=== PATIENT | female | born 1935 | race Hispanic/Latino ===

== ENCOUNTER 2017-12-08 21:10 | Inpatient (IN) | payer MEDICARE ==
--- NOTE | 2017-12-08 21:33 | ED PDOC ---
Arrival/HPI - General Chief Complaint: Weakness/Neurological Deficit Time Seen by Provider: 12/08/17 21:14 Historian: Patient, EMS - History of Present Illness Narrative History of Present Illness (Text): 12/08/17 21:33 Ry Liao is an 82 year old female, whose past medical history includes hypertension, atrial fibrillation, CVA, diabetes, and bilateral hip replacement , who presents to the Emergency department brought in by EMS for generalized weakness and lethargy today. Patient noted to be febrile and in rapid atrial fibrillation by EMS and given IV fluids en route. Patient denies any chest pain , shortness of breath, nausea, vomiting, back pain, neck pain, headache, or any other complaints. Symptom Onset: Gradual Symptom Course: Unchanged Activities at Onset: Light Context: Home Past Medical History - Provider Review Nursing Documentation Reviewed: Yes - Infectious Disease Hx of Infectious Diseases: None - Tetanus Immunization Tetanus Immunization: Unknown - Cardiac Hx Cardiac Disorders: Yes (Afib) Hx Hypertension: Yes - Pulmonary Hx Chronic Obstructive Pulmonary Disease (COPD): No - Neurological HX Cerebrovascular Accident: Yes (3 yrs ago) - HEENT Hx HEENT Disorder: Yes (eyeglasses) Hx Cataracts: No Hx Difficulty Chewing: No Hx Epistaxis: No Hx Glaucoma: No Hx Macular Degeneration: No - Renal Hx Renal Disorder: No Hx Dialysis: No Hx Kidney Stones: No Hx Neurogenic Bladder: No Hx Renal Cancer: No - Endocrine/Metabolic Hx Diabetes Mellitus Type 2: Yes - Hematological/Oncological Hx Blood Disorders: Yes Hx Anemia: Yes (BLOOD TRANSFUSION) Hx Cancer: No Hx Chemotherapy: No Hx Cirrhosis: No Hx Hemophilia: No Hx Sickle Cell Disease: No Hx Unexplained Bleeding: No - Integumentary Hx Dermatological Disorder: No Other/Comment: abd surgical dresing and binder with qball intact - Musculoskeletal/Rheumatological Hx Arthritis: Yes - Gastrointestinal Hx Gastrointestinal Disorders: Yes (colostomy reversal 12/22/16) - Genitourinary/Gynecological Hx Reproductive Disorders: No - Psychiatric Hx Emotional Abuse: No Hx Physical Abuse: No Hx Substance Use: No - Past Surgical History Past Surgical History: Non-Contributing - Surgical History Hx Orthopedic Surgery: Yes (b/l hip replacement) Other/Comment: gi lap colostomy closure today 12/21/16, colostomy, colecytomy - Anesthesia Hx Anesthesia Reactions: No Hx Malignant Hyperthermia: No - Suicidal Assessment Feels Threatened In Home Enviroment: No Family/Social History - Physician Review Nursing Documentation Reviewed: Yes Family/Social History: Unknown Family HX Smoking Status: Never Smoked Hx Alcohol Use: No Hx Substance Use: No Hx Substance Use Treatment: No Allergies/Home Meds Allergies/Adverse Reactions: Allergies No Known Allergies Allergy (Verified 12/25/16 12:05) Home Medications: Home Meds Medication Instructions Recorded Confirmed Atorvastatin [Lipitor] 40 mg PO QPM 08/08/16 12/30/16 Ca/D3/Mag#11/Zinc/Director General/Madi/Bor 1 tab PO BID 08/08/16 12/24/16 [Caltrate 600+D Plus Tablet] Digoxin [Digitek] 125 mcg PO QPM 08/08/16 12/24/16 Gabapentin [Neurontin] 100 mg PO HS 08/08/16 12/24/16 Glimepiride [Amaryl] 1 mg PO BID 08/08/16 12/24/16 Ranitidine HCl [Acid Director Client] 150 mg PO HS 08/08/16 12/24/16 Valsartan [Diovan] 160 mg PO QAM 08/08/16 12/24/16 Verapamil [Calan Tab] 120 mg PO QPM 08/08/16 12/30/16 l-Mefol/A-Cyst/Meb12/Algal Oil 1 tab PO DAILY 08/08/16 12/24/16 [Cerefolin Nac Caplet] Warfarin [Coumadin] 1 mg PO Q4XW 11/05/16 12/24/16 Vancomycin [Vancocin (ORAL OR 125 mg PO QID 12/30/16 12/30/16 RECTAL USE)] Review of Systems - Review of Systems Constitutional: Fatigue, Fevers Eyes: Normal ENT: Normal Respiratory: Normal. absent: SOB, Cough Cardiovascular: Normal. absent: Chest Pain Gastrointestinal: Normal. absent: Abdominal Pain, Diarrhea, Nausea, Vomiting Genitourinary Female: Normal. absent: Dysuria, Frequency, Hematuria, Urine Output Changes Musculoskeletal: Normal. absent: Back Pain, Neck Pain Skin: Normal Neurological: Other (+generalized weakness) Endocrine: Normal Hemo/Lymphatic: Normal Psychiatric: Normal Physical Exam Vital Signs Reviewed: Yes Vital Signs Temp Pulse Resp BP Pulse Ox 12/09/17 01:07 130 H 14 68/45 L 98 12/09/17 00:57 124 H 13 71/33 L 97 12/09/17 00:38 126 H 14 85/48 L 98 12/08/17 23:52 104 H 20 77/44 L 97 12/08/17 23:07 134 H 20 82/38 L 98 12/08/17 22:47 101.9 F H 152 H 19 92/49 L 99 12/08/17 22:37 125 H 23 92/49 L 98 12/08/17 22:03 154 H 18 83/46 L 94 L 12/08/17 21:28 100.4 F H 132 H 16 105/76 94 L 12/08/17 21:22 100.4 F H 162 H 20 105/76 95 Temperature: Febrile Blood Pressure: Normal Pulse: Tachycardic Respiratory Rate: Normal Appearance: Positive for: Non-Toxic Pain Distress: None Mental Status: Positive for: Lethargic - Systems Exam Head: Present: Atraumatic, Normocephalic Pupils: Present: PERRL Extroacular Muscles: Present: EOMI Conjunctiva: Present: Normal Mouth: Present: Moist Mucous Membranes Neck: Present: Normal Range of Motion Respiratory/Chest: Present: Clear to Auscultation, Good Air Exchange. No: Respiratory Distress, Accessory Muscle Use Cardiovascular: Present: Irregular Rhythm (Irregular, regular), Tachycardic. No : Murmurs Abdomen: Present: Normal Bowel Sounds. No: Tenderness, Distention, Peritoneal Signs Back: Present: Normal Inspection Upper Extremity: Present: Normal Inspection. No: Cyanosis, Edema Lower Extremity: Present: Normal Inspection. No: Edema Neurological: Present: GCS=15, CN II-XII Intact Skin: Present: Warm, Dry, Normal Color. No: Rashes Psychiatric: Present: Lethargic Medical Decision Making ED Course and Treatment: 12/08/17 21:33 Impression: 82 year old female brought in for lethargy and generalized weakness. Plan: -- EKG -- Chest X-ray -- Labs, VBG, blood cultures -- Urinalysis, urine cultures -- Lactated Ringer's -- Cardizem -- Vanco -- Azactam -- Reassess and disposition Prior Visits: Notes and results from previous visits were reviewed. On 08/08/2016, pt was seen in the Emergency department for left-sided abdominal pain, weakness, and light-headedbness. Pt was admitted to the hospital for further evaluation. Progress Notes: Reviewed EKG, a fib at 162 bpm. Rapidi ventricular response. Non-specific ST/T wave changes. 12/08/17 22:26 Labs noted, WBC: 18.8, lactate 5.3. Pt with low grade fever. Code Sepsis called. 12/08/17 22:30 Chest X-ray reviewed, shows no acute processes. 12/08/17 22:[address] Abdomen and Pelvis ordered. 12/08/17 23:[address] Centeno, hand therapist, who is aware and agrees to evaluate pt for possible ICU admission. vice president digital strategist cotton stomper notified. 12/09/17 01:[address] Nixon, who is aware and agrees with plan. Accepts pt in to his service. Pt will be admitted to ICU for septic shock. 12/09/17 03:08 CT Abdomen and Pelvis shows: - MULTIPLE STONES IN THE COMMON BILE DUCT, ASSOCIATED WITH DILATATION OF THE COMMON BILE DUCT. 5 STONES ARE SEEN, ALL OF WHICH MEASURE ABOUT 1 CM. GALLSTONES AND MILD GALLBLADDER DILATATION ALSO NOTED. - Small bowel dilatation. This could be due to either a small bowel obstruction or an ileus. Transition point is not definitely seen. Recommend clinical correlation. - Small amount fluid in the left perinephric space, with no evidence of significant obstructive uropathy. This finding is of uncertain clinical significance. Recommend correlation with urinalysis results. - See above for remaining findings - Critical Care Critical Care Minutes: 30 minutes - Lab Interpretations Microbiology Results: Microbiology Results 12/08/17 21:30 Blood Blood Culture - Final Escherichia Coli 12/08/17 21:30 Blood Gram Stain - Final 12/08/17 21:15 Blood Blood Culture - Final Escherichia Coli 12/08/17 21:15 Blood Gram Stain - Final 12/08/17 22:45 Urine,Clean Catch Urine Culture - Final No Growth (<1,000 CFU/ML) Lab Results: 12/08/17 21:30 12/08/17 21:30 Lab Results 12/09/17 00:55: pO2 97 H, VBG pH 7.44 H, VBG pCO2 40.0, VBG HCO3 27.2, VBG Total CO2 28.4 H, VBG O2 Sat (Calc) 98.6 H, VBG Base Excess 2.8 H, VBG Potassium 3.4 L, Sodium 141.0, Chloride 105.0, Glucose 164 H, Lactate 4.6 H*, FiO2 21.0, Venous Blood Potassium 3.4 L 12/09/17 00:55: Digoxin 0.8 12/09/17 00:55: Procalcitonin 44.73 H 12/08/17 22:45: Urine Color Straw, Urine Appearance Sl cloudy, Urine pH 6.0, Ur Specific [place] 1.020, Urine Protein 100 H, Urine Glucose (UA) 500 H, Urine Ketones Negative, Urine Blood Moderate H, Urine Nitrate Negative, Urine Bilirubin Moderate H, Urine Urobilinogen 1.0 H, Ur Leukocyte Esterase Trace H, Urine RBC 1 - 3, Urine WBC 1 - 3, Ur Epithelial Cells 1 - 3, Urine Bacteria Few 12/08/17 21:30: Lactate Dehydrogenase 885 H, Total Creatine Kinase 122, Troponin I 0.06 D 12/08/17 21:30: Sodium 137, Chloride 101, Potassium 2.7 L* D, Carbon Dioxide 21 , Anion Gap 17, BUN 26 H, Creatinine 1.0, Est GFR ( Amer) > 60, Est GFR ( Non-Af Amer) 53, Random Glucose 237 H, Calcium 8.5, Phosphorus 1.5 L, Magnesium 1.6 L, Total Bilirubin 4.0 H, AST 209 H, ALT 363 H, Alkaline Phosphatase 608 H, Total Protein 6.2, Albumin 3.1, Globulin 3.1, Albumin/Globulin Ratio 1.0 L 12/08/17 21:30: pO2 57 H, VBG pH 7.46 H, VBG pCO2 35.0 L, VBG HCO3 24.9, VBG Total CO2 26.0, VBG O2 Sat (Calc) 93.6 H, VBG Base Excess 1.4, VBG Potassium 3.0 L, Sodium 143.0, Chloride 105.0, Glucose 251 H, Lactate 5.3 H*, FiO2 21.0, Venous Blood Potassium 3.0 L 12/08/17 21:30: PT 40.2 H, INR 3.44 H, APTT 34.0 12/08/17 21:30: WBC 18.8 H D, RBC 4.14, Hgb 10.1 L, Hct 31.3 L, MCV 75.6 L, MCH 24.4 L, MCHC 32.3, RDW 18.6 H, Plt Count 201, MPV 10.7, Gran % 87.4 H, Lymph % ( Auto) 5.0 L, Quay % (Auto) 7.5 H, Eos % (Auto) 0.0 L, Baso % (Auto) 0.1, Gran # 16.40 H, Lymph # 0.9 L, Quay # 1.4 H, Eos # 0.0, Baso # 0.02, Neutrophils % ( Manual) 78 H, Band Neutrophils % 5 H, Lymphocytes % (Manual) 7 L, Atypical Lymphs % 2 H, Monocytes % (Manual) 8 H, Nucleated RBC % 1, Large Platelets Present, Anisocytosis (manual) Slight, Microcytosis (manual) Slight I have reviewed the lab results: Yes - RAD Interpretation Radiology Orders: 12/08/17 21:49 CHEST PORTABLE [RAD] Stat 12/08/17 22:45 ABD & PELVIS W/O PO OR IV CONT [CT] Stat Discharge Rn: ED Physician, Radiologist - EKG Interpretation Interpreted by ED Physician: Yes Type: 12 lead EKG - Medication Orders Current Medication Orders: Digoxin (Lanoxin) 0.125 mg IV 1400 [facility] Last Admin: 12/11/17 13:36 Dose: 0.125 mg eMAR Start Stop Document 12/11/17 13:36 MS (Rec: 12/11/17 13:36 MS [facility] Intravenous Solution Start Date 12/11/17 Start Time 13:36 MAR Apical Pulse Rate Document 12/11/17 13:36 MS (Rec: 12/11/17 13:36 MS [facility]) Apical Pulse Rate Apical Pulse Rate (60-90 beats/min) 73 Famotidine (Pepcid) 20 mg IVP DAILY [facility] Last Admin: 12/11/17 09:51 Dose: 20 mg IVP Administration Document 12/11/17 09:51 MS (Rec: 12/11/17 09:52 MS [id number] Charges for Administration # of IVP Administrations 1 Ceftriaxone Sodium (Rocephin 2 Gm Ivpb) 2 gm in 100 mls @ 100 mls/hr IVPB DAILY [facility] PRN Reason: Protocol Stop: 12/21/17 10:01 Metronidazole (Flagyl) 500 mg in 100 mls @ 100 mls/hr IVPB Q8 COLIN PRN Reason: Protocol Stop: 12/20/17 22:01 Insulin Human Regular (Humulin R Low) 0 units SC ACHS COLIN PRN Reason: Protocol Last Admin: 12/11/17 17:06 Dose: 3 units Subcutaneous Administrations Document 12/11/17 17:06 MS (Rec: 12/11/17 17:06 MS [id number] Charges for Administration # of Subcutaneous Administrations 1 Verapamil HCl (Calan Sr Tab) 120 mg PO DAILY [facility] Last Admin: 12/11/17 09:51 Dose: 120 mg MAR Pulse and Blood Pressure Document 12/11/17 09:51 MS (Rec: 12/11/17 09:51 MS [facility] [id number] Pulse Pulse Rate (60-90) 116 Discontinued Medications Digoxin (Lanoxin) 0.25 mg IVP STAT STA Stop: 12/09/17 00:56 Last Admin: 12/09/17 01:12 Dose: 0.25 mg MAR Apical Pulse Rate Document 12/09/17 01:12 CNR (Rec: 12/09/17 01:13 CNR [id number]) Apical Pulse Rate Apical Pulse Rate (60-90 beats/min) 124 IVP Administration Document 12/09/17 01:12 CNR (Rec: 12/09/17 01:13 CNR [id number]) Charges for Administration # of IVP Administrations 1 Diltiazem HCl (Cardizem) 20 mg IVP STAT STA Stop: 12/08/17 21:52 Diltiazem HCl (Cardizem) 10 mg IVP STAT STA Stop: 12/10/17 21:15 Last Admin: 12/10/17 21:29 Dose: 10 mg IVP Administration Document 12/10/17 21:29 KTR (Rec: 12/10/17 21:29 [id number] Charges for Administration # of IVP Administrations 1 MAR Pulse and Blood Pressure Document 12/10/17 21:29 KTR (Rec: 12/10/17 21:29 KTR [id number] Pulse Pulse Rate (60-90) 130 Blood Pressure Blood Pressure (100/60-150/90) 160/107 Glycerin (Glycerin Adult Suppository) 1 sup RC ONCE ONE Stop: 12/09/17 18:03 Last Admin: 12/09/17 19:16 Dose: 1 sup Lactated Ringer's 1,800 ml/ IV (SUPPLIES) 1,800 mls @ 3,401.94 mls/hr IV ONCE ONE PRN Reason: 60 ML/KG/HR Stop: 12/08/17 21:53 Last Admin: 12/08/17 21:58 Dose: 3,401.94 mls/hr eMAR Start Stop Document 12/08/17 21:58 CNR (Rec: 12/08/17 21:58 CNR [id number]) Intravenous Solution Start Date 12/08/17 Start Time 21:58 Aztreonam (Azactam 2 Gm) 100 mls @ 100 mls/hr IVPB STAT STA PRN Reason: Protocol Stop: 12/08/17 22:52 Last Admin: 12/09/17 00:06 Dose: 100 mls/hr eMAR Start Stop Document 12/09/17 00:06 CNR (Rec: 12/09/17 00:06 CNR [id number]) Intravenous Solution Start Date 12/09/17 Start Time 00:06 Vancomycin HCl (Vancomycin 1gm) 1 gm in 250 mls @ 167 mls/hr IVPB STAT STA PRN Reason: Protocol Stop: 12/08/17 23:22 Last Admin: 12/08/17 22:22 Dose: 167 mls/hr eMAR Start Stop Document 12/08/17 22:22 CNR (Rec: 12/08/17 22:24 CNR [id number]) Intravenous Solution Start Date 12/08/17 Start Time 22:23 Potassium Chloride (Potassium Chloride 20 Meq/100 Ml) 20 meq in 100 mls @ 50 mls/hr IVPB Q2H COLIN Stop: 12/09/17 02:44 Last Admin: 12/09/17 03:31 Dose: 50 mls/hr eMAR Start Stop Document 12/09/17 03:31 MHA (Rec: 12/09/17 03:32 [id number] Intravenous Solution Start Date 12/09/17 Start Time 03:32 End Date 12/09/17 End time 05:32 Total Infusion Time 120 Lactated Ringer's 1,800 ml/ IV (SUPPLIES) 1,800 mls @ 3,401.94 mls/hr IV ONCE ONE PRN Reason: 60 ML/KG/HR Stop: 12/08/17 23:45 Last Admin: 12/08/17 23:55 Dose: 3,401.94 mls/hr eMAR Start Stop Document 12/08/17 23:55 CNR (Rec: 12/08/17 23:55 CNR [id number]) Intravenous Solution Start Date 12/08/17 Start Time 23:55 Magnesium Sulfate 2 gm/ Sodium (Chloride) 104 mls @ 102 mls/hr IVPB ONCE ONE Stop: 12/09/17 01:49 Last Admin: 12/09/17 01:25 Dose: 102 mls/hr eMAR Start Stop Document 12/09/17 01:25 CNR (Rec: 12/09/17 01:25 CNR [id number]) Intravenous Solution Start Date 12/09/17 Start Time 01:25 Potassium Phosphate 15 mmole/ (Sodium Chloride) 255 mls @ 42.5 mls/hr IVPB ONCE ONE Stop: 12/09/17 06:47 Last Admin: 12/09/17 01:26 Dose: 42.5 mls/hr eMAR Start Stop Document 12/09/17 01:26 CNR (Rec: 12/09/17 01:26 CNR [id number]) Intravenous Solution Start Date 12/09/17 Start Time 01:26 Sodium Chloride (Sodium Chloride 0.9%) 1,000 mls @ 500 mls/hr IV .Q2H STA Stop: 12/09/17 02:42 Last Admin: 12/09/17 01:12 Dose: 500 mls/hr eMAR Start Stop Document 12/09/17 01:12 CNR (Rec: 12/09/17 01:12 CNR [id number]) Intravenous Solution Start Date 12/09/17 Start Time 01:12 Sodium Chloride (Sodium Chloride 0.9%) 1,000 mls @ 100 mls/hr IV .Q10H COLIN Last Admin: 12/09/17 12:05 Dose: 100 mls/hr eMAR Start Stop Document 12/09/17 12:05 ID (Rec: 12/09/17 12:05 ID [id number]) Intravenous Solution Start Date 12/09/17 Start Time 12:05 End Date 12/09/17 Aztreonam (Azactam 2 Gm) 100 mls @ 100 mls/hr IVPB Q8 COLIN PRN Reason: Protocol Stop: 12/09/17 14:59 Last Admin: 12/09/17 05:47 Dose: 100 mls/hr eMAR Start Stop Document 12/09/17 05:47 MHA (Rec: 12/09/17 05:48 [id number] Intravenous Solution Start Date 12/09/17 Start Time 05:47 End Date 12/09/17 End time 06:47 Total Infusion Time 60 Vancomycin HCl (Vancomycin 1gm) 1 gm in 250 mls @ 167 mls/hr IVPB Q12H COLIN PRN Reason: Protocol Last Admin: 12/09/17 08:48 Dose: 167 mls/hr eMAR Start Stop Document 12/09/17 08:48 ID (Rec: 12/09/17 08:48 ID [id number]) Intravenous Solution Start Date 12/09/17 Start Time 08:48 End Date 12/09/17 Phenylephrine HCl 40 mg/ (Sodium Chloride) 254 mls @ 38.1 mls/hr IV .Q6H40M PRN ; Protocol; 100 MCG/MIN PRN Reason: TITRATE PER MD ORDER Last Admin: 12/09/17 03:32 Dose: 100 mcg/min, 38.1 mls/hr eMAR Start Stop Document 12/09/17 03:32 MHA (Rec: 12/09/17 03:33 [id number]) Intravenous Solution Start Date 12/09/17 Start Time 03:33 MAR Pulse and Blood Pressure Document 12/09/17 03:32 MHA (Rec: 12/09/17 03:33 [id number] Pulse Pulse Rate (60-90) 112 Blood Pressure Blood Pressure (100/60-150/90) 71/35 Titration Intervention Document 12/09/17 03:32 MHA (Rec: 12/09/17 03:33 [id number]) Titration Intake Waste Amount 0 Container Volume 254 Titration Dosing Titration Dose 100 IV Rate 38.1 Intake/Decrease Started Meropenem (Merrem Iv 1 Gm Premix) 50 mls @ 100 mls/hr IVPB Q8 COLIN PRN Reason: Protocol Stop: 12/18/17 07:31 Last Admin: 12/10/17 05:24 Dose: 100 mls/hr eMAR Start Stop Document 12/10/17 05:24 MHA (Rec: 12/10/17 05:24 MHA [id number]) Intravenous Solution Start Date 12/10/17 Start Time 05:24 End Date 12/10/17 End time 06:54 Total Infusion Time 90 Dobutamine HCl/Dextrose (Dobutamine/Dextrose 5% 500mg/250ml) 500 mg in 250 mls @ 3.837 mls/hr IV .Q24H PRN; Protocol; 2 MCG/KG/MIN PRN Reason: TITRATE PER PROTOCOL Last Admin: 12/09/17 11:00 Dose: 2 mcg/kg/min, 3.837 mls/hr eMAR Start Stop Document 12/09/17 11:00 ID (Rec: 12/09/17 11:54 ID [id number]) Intravenous Solution Start Date 12/09/17 Start Time 11:00 End Date 12/09/17 MAR Pulse and Blood Pressure Document 12/09/17 11:00 ID (Rec: 12/09/17 11:54 ID [id number]) Pulse Pulse Rate (60-90) 89 Blood Pressure Blood Pressure (100/60-150/90) 92/52 Titration Intervention Document 12/09/17 11:00 ID (Rec: 12/09/17 11:54 ID [id number]) Titration Intake Waste Amount 0 Container Volume 250 Titration Dosing Titration Dose 2 IV Rate 3.837 Intake/Decrease Started Sodium Chloride (Sodium Chloride 0.9%) 1,000 mls @ 150 mls/hr IV .Q6H40M [facility] Last Admin: 12/09/17 13:43 Dose: 150 mls/hr eMAR Start Stop Document 12/09/17 13:43 ID (Rec: 12/09/17 13:43 ID [id number]) Intravenous Solution Start Date 12/09/17 Start Time 13:43 End Date 12/09/17 Lactated Ringer's (Lactated Ringer's) 1,000 mls @ 150 mls/hr IV .Q6H40M [facility] Last Admin: 12/10/17 00:30 Dose: 150 mls/hr eMAR Start Stop Document 12/10/17 00:30 MHA (Rec: 12/10/17 05:24 MHA [id number]) Intravenous Solution Start Date 12/10/17 Start Time 00:30 Calcium Gluconate 1,000 mg/ (Sodium Chloride) 110 mls @ 110 mls/hr IVPB ONCE ONE Stop: 12/10/17 08:45 Last Admin: 12/10/17 08:59 Dose: 110 mls/hr eMAR Start Stop Document 12/10/17 08:59 JUR (Rec: 12/10/17 08:59 JUR [id number]) Intravenous Solution Start Date 12/10/17 Start Time 08:59 End Date 12/10/17 End time 09:59 Total Infusion Time 60 Potassium Chloride (Potassium Chloride 10 Meq/100 Ml) 10 meq in 100 mls @ 50 mls/hr IVPB ONCE ONE Stop: 12/10/17 09:45 Last Admin: 12/10/17 08:59 Dose: 50 mls/hr eMAR Start Stop Document 12/10/17 08:59 JUR (Rec: 12/10/17 08:59 JUR [id number]) Intravenous Solution Start Date 12/10/17 Start Time 08:59 End Date 12/10/17 End time 10:59 Total Infusion Time 120 Lactated Ringer's (Lactated Ringer's) 1,000 mls @ 50 mls/hr IV .Q20H COLIN Stop: 12/10/17 13:44 Last Admin: 12/10/17 08:59 Dose: 50 mls/hr eMAR Start Stop Document 12/10/17 08:59 JUR (Rec: 12/10/17 08:59 JUR [id number]) Intravenous Solution Start Date 12/10/17 Start Time 08:59 Meropenem (Merrem Iv 1 Gm Premix) 50 mls @ 100 mls/hr IVPB Q12 COLIN PRN Reason: Protocol Stop: 12/19/17 10:01 Last Admin: 12/11/17 09:53 Dose: 100 mls/hr eMAR Start Stop Document 12/11/17 09:53 MS (Rec: 12/11/17 09:53 MS [id number] Intravenous Solution Start Date 12/11/17 Start Time 09:53 Levalbuterol HCl (Xopenex) 0.63 mg IH STAT STA Stop: 12/10/17 23:17 Phytonadione (Vitamin K Inj) 10 mg SC ONCE ONE Stop: 12/09/17 03:14 Last Admin: 12/09/17 03:31 Dose: 10 mg Subcutaneous Administrations Document 12/09/17 03:31 MHA (Rec: 12/09/17 03:31 MHA [id number] Injection Site MAR Injection Site Right Abdomen Charges for Administration # of Subcutaneous Administrations 1 - Scribe Statement The provider has reviewed the documentation as recorded by the Scribe Nova Chin All medical record entries made by the Scribe were at my direction and personally dictated by me. I have reviewed the chart and agree that the record accurately reflects my personal performance of the history, physical exam, medical decision making, and the department course for this patient. I have also personally directed, reviewed, and agree with the discharge instructions and disposition. Disposition/Present on Arrival - Present on Arrival Any Indicators Present on Arrival: No History of DVT/PE: No History of Uncontrolled Diabetes: No Urinary Catheter: No History of Decub. Ulcer: No History Surgical Site Infection Following: None - Disposition Have Diagnosis and Disposition been Completed?: Yes Diagnosis: Sepsis Disposition: HOSPITALIZED Disposition Time: 23:45 Condition: CRITICAL
[2017-12-08] MEDS ORDERED: diltiaZEM IVPB 100mg in NS 100 ML IV PRN (21:51)
[2017-12-08] MEDS ORDERED: Aztreonam 2 Gm in NS 100mL 100 ML IVPB STA (21:53)
[2017-12-08] MEDS ORDERED: Vancomycin 1gm in NS 250ml 1 GM/250 ML BAG IVPB STA (21:53)
[2017-12-08 22:07] LABS: BASO # 0.02 K/mm3 (0.0-2.0); BASO % 0.1 % (0.0-3.0); GRAN % 87.4 % (50.0-68.0); HEMOGLOBIN 10.1 g/dL (12.0-16.0); LYMPH # 0.9 (1.2-3.4); MEAN CELL VOLUME 75.6 fl (80.0-105.0); MEAN CORPUSCULAR HEMOGLOBIN 24.4 pg (25.0-35.0); MEAN CORPUSCULAR HGB CONC 32.3 g/dl (31.0-37.0); MEAN PLATELET VOLUME 10.7 fl (7.0-11.0); MONO # 1.4 (0.1-0.6); MONO % 7.5 % (1.0-6.0); PLATELET COUNT 201 10^3/uL (120.0-450.0); RBC 4.14 10^6/uL (3.5-6.1); RED CELL DISTRIBUTION WIDTH 18.6 % (11.5-14.5); WHITE BLOOD COUNT 18.8 10^3/ul (4.5-11.0)
[2017-12-08 22:08] LABS: VENOUS BLOOD GAS BASE EXCESS 1.4 mmol/L (0.0-2.0); VENOUS BLOOD GAS PO2 57 mm/Hg (30-55); VENOUS BLOOD PH 7.46 (7.32-7.43)
[2017-12-08 22:22] LABS: INR 3.44 (0.93-1.08); PROTHROMBIN TIME 40.2 SECONDS (9.4-12.5)
[2017-12-08 22:36] LABS: ALBUMIN 3.1 g/dL (3.0-4.8); ALT/SGPT 363 U/L (7-56); AST/SGOT 209 U/L (14-36); BLOOD UREA NITROGEN 26 mg/dL (7-21); CALCIUM 8.5 mg/dL (8.4-10.5); GFR AFRICAN-AMERICAN > 60; GFR NON-AFRICAN AMERICAN 53; MAGNESIUM 1.6 mg/dL (1.7-2.2)
[2017-12-08 23:04] LABS: URINE BILIRUBIN MODERATE (NEGATIVE); URINE BLOOD MODERATE (NEGATIVE); URINE GLUCOSE (UA) 500 mg/dL (NEGATIVE); URINE LEUKOCYTE ESTERASE TRACE Leu/uL (NEGATIVE); URINE NITRATE NEGATIVE (NEGATIVE); URINE PROTEIN 100 mg/dL (<30 mg/dL)
[2017-12-08 23:10] LABS: ATYPICAL LYMPHOCYTE 2 % (0.0-0.0); BAND 5 % (0-2); LYMPHOCYTE 7 % (22.0-35.0); MONOCYTE 8 % (1.0-6.0); NEUTROPHIL 78 % (50.0-70.0); NUCLEATED RED BLOOD CELL 1 %
[2017-12-08 23:11] LABS: ANISOCYTOSIS SLIGHT
[2017-12-08 23:12] LABS: LARGE PLATELETS PRESENT; MICROCYTOSIS SLIGHT
[2017-12-08 23:14] LABS: URINE APPEARANCE SL CLOUDY (CLEAR); URINE COLOR STRAW (YELLOW)
[2017-12-08 23:26] LABS: URINE BACTERIA FEW (NEG)
--- NOTE | 2017-12-08 23:58 | CP.PCM.HP ---
<Alexandre Davies - Last Filed: 12/09/17 01:11> History of Present Illness - History of Present Illness History of Present Illness: Critical care reason: atrial fibrillation RVR Subjective: HPI: Patient is a 82 year old female with past medical history of hypertension, hyperlipidemia, diabetes, atrial fibrillation, CVA, who presents to the emergency department via EMS for evaluation and treatment of lethargy and generalized weakness. Symptoms began yesterday evening without any specific provoking events. Denies recent travel and sick contacts. Admits to urinary frequency but no dysuria. Admits to chills. Patient denies intractable headache , fever, dizziness, blurry vision, ringing in the ears, chest pain, shortness of breath, abdominal pain, nausea, vomiting, diarrhea, and constipation. ROS: 12 point review of systems negative except as indicated in HPI PMHx: hypertension, atrial fibrillation, CVA, diabetes PSHx: transverse colostomy reversal, bilateral hip replacement Family Hx: noncontributory Social Hx: denies ETOH use, tobacco use, illicit drug use Medications: Please see medication reconciliation PMD: Dr. Lockett in [place] Physical Examination: - Constitutional Appears: Non-toxic, No Acute Distress - Head Exam Head Exam: atraumatic, normocephalic - Eye Exam Eye Exam: Normal appearance, PERRL. absent: Scleral icterus - ENT Exam ENT Exam: Mucous Membranes Dry - Neck Exam Neck exam: Normal Inspection - Respiratory Exam Respiratory Exam: Normal Breathing Pattern - Cardiovascular Exam Cardiovascular Exam: +S1, +S2, tachycardic, irregulary irregular absent: Gallop, JVD - GI/Abdominal Exam GI & Abdominal Exam: Normal Bowel Sounds, absent: Distended, Guarding, Pulsatile Mass, Rebound, Rigid - Extremities Exam Extremities exam: Negative for: calf tenderness - Neurological Exam Neurological exam: Patient is awake, alert, responds to verbal stimuli, answers questions appropriately, follows commands, and moves extremities past midline - Psychiatric Exam Psychiatric exam: Normal Affect, Normal Mood - Skin Skin Exam: warm and dry, redness noted under left breast and tracking along the back- location of previous shingles infection Assessment and Plan: Patient is a 82 year old female with past medical history of hypertension, atrial fibrillation, CVA, diabetes who was admitted for evaluation and treatment of lethargy and altered mental status. Sepsis - greater than 2/4 SIRS criteria met in setting of infectious - blood cultures x 2 - urine culture - IVF 2800 liters given in ED - IVF NS @ 100 - c/w vancomycin and azetreonam - procalcitonin ordered and pending - ID consulted- appreciate recommendations Atrial Fibrillation with RVR - HR and BP reviewed, trended, and appreciated - EKG reviewed and appreciated- HR 162 Qtc 459, AFib RVR, digitalis effect noted - rate control with cardizem IV push and digoxin, if RVR sustained start cardizem drip - cardiac isoenzymes q8 x 3, first troponin is 0.06 - takes digoxin at home- digoxin level ordered - cardiology consulted- appreciate recommendations Elevated LFTs - avoid hepatotoxins - monitor closely via CMP - hepatits panel pending - HIV rapid screen pending - abdominal ultrasound pending SUSIE - creatinine and Bun reviewed, trended, and appreciated - avoid nephrotoxins - continue IVF NS @ 100 - consider nephrology consult pending patients clinical course Supratherapetuic INR - PT/INR ordered for AM - will give vitamin K and FFP if central line is required Hypokalemia, Hypomagnesemia, Hypophospathemia - repleted and monitor closely via CMP Anemia - Hgb reviewed, trended, and appreciated - monitor closely via CBC - iron, tibc, ferritin, peripheral smear ordered and pending Hx of Htn - hold home meds as pressures are low Hx of Hyperlipidemia - lipid profile pending - no statin at this time as LFTs are elevated Hx of Diabetes - hold home diabetic medications - fingersticks ACHS - insulin sliding scale- lispro medium - NPO now but resume diet as carb consistent Prophylaxis - DVT ppx- scds - GI ppx- famotidine Patient case discussed with and plan approved by attending physician. Present on Admission - Present on Admission Any Indicators Present on Admission: No Past Patient History - Infectious Disease Hx of Infectious Diseases: None - Tetanus Immunizations Tetanus Immunization: Unknown - Past Social History Smoking Status: Never Smoked - CARDIAC Hx Cardiac Disorders: Yes (Afib) Hx Hypertension: Yes - PULMONARY Hx Chronic Obstructive Pulmonary Disease (COPD): No - NEUROLOGICAL HX Cerebrovascular Accident: Yes (3 yrs ago) - HEENT Hx HEENT Problems: Yes (eyeglasses) Hx Cataracts: No Hx Difficulty Chewing: No Hx Epistaxis: No Hx Glaucoma: No Hx Macular Degeneration: No - RENAL Hx Chronic Kidney Disease: No Hx Dialysis: No Hx Kidney Stones: No Hx Neurogenic Bladder: No Hx Renal (Kidney) Cancer: No - ENDOCRINE/METABOLIC Hx Diabetes Mellitus Type 2: Yes - HEMATOLOGICAL/ONCOLOGICAL Hx Blood Disorders: Yes Hx Anemia: Yes (BLOOD TRANSFUSION) Hx Cancer: No Hx Chemotherapy: No Hx Cirrhosis: No Hx Hemophilia: No Hx Sickle Cell Disease: No Hx Unexplained Bleeding: No - INTEGUMENTARY Hx Dermatological Problems: No Other/Comment: abd surgical dresing and binder with qball intact - MUSCULOSKELETAL/RHEUMATOLOGICAL Hx Arthritis: Yes - GASTROINTESTINAL Hx Gastrointestinal Disorders: Yes (colostomy reversal 12/22/16) - GENITOURINARY/GYNECOLOGICAL Hx Reproductive Disorders: No - PSYCHIATRIC Hx Emotional Abuse: No Hx Physical Abuse: No Hx Substance Use: No - SURGICAL HISTORY Hx Orthopedic Surgery: Yes (b/l hip replacement) Other/Comment: gi lap colostomy closure today 12/21/16, colostomy, colecytomy - ANESTHESIA Hx Anesthesia Reactions: No Hx Malignant Hyperthermia: No Meds Allergies/Adverse Reactions: Allergies Allergy/AdvReac Type Severity Reaction Status Date / Time No Known Allergies Allergy Verified 12/25/16 12:05 Results - Vital Signs Recent Vital Signs: Last Vital Signs Temp 101.9 F H 12/08/17 22:47 Pulse 152 H 12/08/17 22:47 Resp 19 12/08/17 22:47 BP 92/49 L 12/08/17 22:47 Pulse Ox 99 12/08/17 22:47 - Labs Result Diagrams: 12/08/17 21:30 12/08/17 21:30 Labs: Laboratory Results - last 24 hr 12/08/17 12/08/17 12/08/17 21:30 21:30 21:30 WBC 18.8 H D RBC 4.14 Hgb 10.1 L Hct 31.3 L MCV 75.6 L MCH 24.4 L MCHC 32.3 RDW 18.6 H Plt Count 201 MPV 10.7 Gran % 87.4 H Lymph % (Auto) 5.0 L [place] % (Auto) 7.5 H Eos % (Auto) 0.0 L Baso % (Auto) 0.1 Gran # 16.40 H Lymph # 0.9 L [place] # 1.4 H Eos # 0.0 Baso # 0.02 Neutrophils % (Manual) 78 H Band Neutrophils % 5 H Lymphocytes % (Manual) 7 L Atypical Lymphs % 2 H Monocytes % (Manual) 8 H Nucleated RBC % 1 Large Platelets Present Anisocytosis (manual) Slight Microcytosis (manual) Slight PT 40.2 H INR 3.44 H APTT 34.0 pO2 57 H VBG pH 7.46 H VBG pCO2 35.0 L VBG HCO3 24.9 VBG Total CO2 26.0 VBG O2 Sat (Calc) 93.6 H VBG Base Excess 1.4 VBG Potassium 3.0 L Sodium 143.0 Chloride 105.0 Glucose 251 H Lactate 5.3 H* FiO2 21.0 Potassium Carbon Dioxide Anion Gap BUN Creatinine Est GFR ( Amer) Est GFR (Non-Af Amer) Random Glucose Calcium Phosphorus Magnesium Total Bilirubin AST ALT Alkaline Phosphatase Total Protein Albumin Globulin Albumin/Globulin Ratio Venous Blood Potassium 3.0 L Urine Color Urine Appearance Urine pH Ur Specific [place] Urine Protein Urine Glucose (UA) Urine Ketones Urine Blood Urine Nitrate Urine Bilirubin Urine Urobilinogen Ur Leukocyte Esterase Urine RBC Urine WBC Ur Epithelial Cells Urine Bacteria 12/08/17 12/08/17 21:30 22:45 WBC RBC Hgb Hct MCV MCH MCHC RDW Plt Count MPV Gran % Lymph % (Auto) [place] % (Auto) Eos % (Auto) Baso % (Auto) Gran # Lymph # [place] # Eos # Baso # Neutrophils % (Manual) Band Neutrophils % Lymphocytes % (Manual) Atypical Lymphs % Monocytes % (Manual) Nucleated RBC % Large Platelets Anisocytosis (manual) Microcytosis (manual) PT INR APTT pO2 VBG pH VBG pCO2 VBG HCO3 VBG Total CO2 VBG O2 Sat (Calc) VBG Base Excess VBG Potassium Sodium 137 Chloride 101 Glucose Lactate FiO2 Potassium 2.7 L* D Carbon Dioxide 21 Anion Gap 17 BUN 26 H Creatinine 1.0 Est GFR ( Amer) > 60 Est GFR (Non-Af Amer) 53 Random Glucose 237 H Calcium 8.5 Phosphorus 1.5 L Magnesium 1.6 L Total Bilirubin 4.0 H AST 209 H ALT 363 H Alkaline Phosphatase 608 H Total Protein 6.2 Albumin 3.1 Globulin 3.1 Albumin/Globulin Ratio 1.0 L Venous Blood Potassium Urine Color Straw Urine Appearance Sl cloudy Urine pH 6.0 Ur Specific [place] 1.020 Urine Protein 100 H Urine Glucose (UA) 500 H Urine Ketones Negative Urine Blood Moderate H Urine Nitrate Negative Urine Bilirubin Moderate H Urine Urobilinogen 1.0 H Ur Leukocyte Esterase Trace H Urine RBC 1 - 3 Urine WBC 1 - 3 Ur Epithelial Cells 1 - 3 Urine Bacteria Few <Baldev Centeno Q - Last Filed: 12/09/17 05:14> Results - Vital Signs Recent Vital Signs: Last Vital Signs Temp 99.2 F 12/09/17 02:25 Pulse 112 H 12/09/17 03:32 Resp 24 12/09/17 02:25 BP 71/35 L 12/09/17 03:32 Pulse Ox 98 12/09/17 01:07 - Labs Result Diagrams: 12/08/17 21:30 12/08/17 21:30 Labs: Laboratory Results - last 24 hr 12/09/17 02:35 Influenza Typ A,B (EIA) Negative for flu a/b Attending/Attestation - Attestation I have personally seen and examined this patient.: Yes I have fully participated in the care of the patient.: Yes I have reviewed all pertinent clinical information: Yes Notes (Text): 12/09/17 04:55 I agree with the above mentioned note and exam listed by the resident with the addition/exception of the followin82 y/o female with a PMHx Htn, DM, Afib, h/o CVA, h/o transverse colon resection with colostomy and subsequent reversal, 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 In the ED patient was noted to be hypotensive and treated with IVF under code sepsis protocol. She remained hypotensive despite IVF hydration, indicating septic shock. Unclear etiology at this time however U/A reveals acute cystitis and CT abd/pelvis showing cholelithiasis. Will continue patient on IVF hydration; phenylephrine drip started (patient remained Afib with rvr in the 140's initially). Diltiazem drip was ordered, however the patient remained hypotensive in the ED so I held the cardizem drip and she was treated with digoxin IVP x1 showing improved rate control. FFP and vitamin K given to reverse elevated INR in order to place a central line for continuous vasopressor support. IV Abx given with Vancomycin + Azactam. Also worth noting, patient was recently treated last month for a bout of shingles, however currently does not have any residual signs of infection (under the left breast and back). All labs and images available to myself thus far have been reviewed Case discussed at length with Dr. Awilda bassett the ED total time of care: 60 minutes
[2017-12-09] MEDS ORDERED: Sodium Chloride 0.9% 1,000 ML IV STA (00:43)
[2017-12-09] MEDS ORDERED: Potassium Phosphate 15 MMOLE in Sodium Chloride 0.9% 250 ML IVPB ONE (00:48)
[2017-12-09] MEDS ORDERED: Magnesium Sulfate 2 GM in Sodium Chloride 0.9% 100 ML IVPB ONE (00:48)
[2017-12-09] MEDS ORDERED: Digoxin 500 mcg/2ml (0.5 mg/2ml) Inj IVP STA (00:55)
[2017-12-09 01:00] LABS: TROPONIN I 0.06 ng/mL
[2017-12-09 01:34] LABS: VENOUS BLOOD GAS BASE EXCESS 2.8 mmol/L (0.0-2.0); VENOUS BLOOD GAS PO2 97 mm/Hg (30-55); VENOUS BLOOD PH 7.44 (7.32-7.43)
[2017-12-09] MEDS: Sodium Chloride 0.9% 1,000 ML IV SCH ×2 (02:25→12:05)
--- NOTE | 2017-12-09 03:07 | CT ---
EXAM: CT Abdomen and Pelvis Without Intravenous Contrast EXAM DATE/TIME: 12/08/2017 10:45 PM CLINICAL HISTORY: 82 years old, female; Pain; Abdominal pain; Prior surgery; Surgery date: 6+ months; Additional info: Abd pain TECHNIQUE: Axial computed tomography images of the abdomen and pelvis without intravenous contrast. All CT scans at this facility use one or more dose reduction techniques, viz.: automated exposure control; ma/kV adjustment per patient size (including targeted exams where dose is matched to indication; i.e. head); or iterative reconstruction technique. Coronal and sagittal reformatted images were created and reviewed. COMPARISON: Prior CT abdomen and pelvis of 2016-11-17 FINDINGS: LIMITATIONS: Streak artifact from arthroplasty devices in the hips bilaterally. Moderate motion artifact. LOWER THORAX: Heart appears mildly enlarged. ABDOMEN: LIVER: No acute abnormality of the liver identified. GALLBLADDER AND BILE DUCTS: Multiple radiopaque stones seen in the common bile duct, best visualized on image 46 of series 601. 5 stones are seen, all of which measure approximately 1 cm. The common bile duct is dilated for age, measuring up to 1.5 cm in diameter. Single gallstone is seen. Mild gallbladder dilatation. No CT evidence of acute cholecystitis. PANCREAS: No CT evidence of acute pancreatitis. SPLEEN: No acute abnormality of the spleen identified. ADRENALS: No acute abnormality of the adrenal glands identified. KIDNEYS AND URETERS: Small amount of fluid in the left perinephric space, a new finding. Bilateral perinephric stranding, a new finding. Stable appearance of fluid density areas in the left renal pelvis, most likely representing peripelvic cysts. No evidence of significant hydroureter. No obstructing stones are seen. STOMACH AND BOWEL: Findings which could be due to a small bowel obstruction versus an ileus. There are multiple dilated mostly proximal small bowel loops seen, including the duodenum, and there are decompressed distal small bowel loops visualized. Transition point is not definitely identified, however. Surgical suture line/surgical anatomosis is noted transverse colon. Colonic diverticulosis, with no evidence of acute diverticulitis. Retained stool noted throughout the colon. Otherwise, no significant abnormality of the bowel is identified. APPENDIX: Appendix is seen, and is within normal limits in appearance. PELVIS: BLADDER: Tiny dot of air in the bladder, presumably iatrogenic. Recommend clinical correlation. REPRODUCTIVE: Multiple uterine masses, many of which are calcified. Findings are most compatible with fibroids. Stable appearance of small bilateral cystic adnexal/ovarian lesions, the larger, on the left, measuring 2.8 cm. No followup is warranted based on the imaging findings, unless otherwise clinically indicated. ABDOMEN and PELVIS: INTRAPERITONEAL SPACE: No evidence of free intraperitoneal air or fluid. BONES/JOINTS: Arthroplasty devices in the hips bilaterally. Bony structures appear demineralized. SOFT TISSUES: Ventral hernia, with a wide neck, containing part of the transverse colon. No evidence of associated colonic obstruction. No CT findings to suggest hernia incarceration. VASCULATURE: No evidence of abdominal aortic aneurysm. No evidence of periaortic hemorrhage. LYMPH NODES: No evidence of diffuse lymphadenopathy. IMPRESSION: - MULTIPLE STONES IN THE COMMON BILE DUCT, ASSOCIATED WITH DILATATION OF THE COMMON BILE DUCT. 5 STONES ARE SEEN, ALL OF WHICH MEASURE ABOUT 1 CM. GALLSTONES AND MILD GALLBLADDER DILATATION ALSO NOTED. - Small bowel dilatation. This could be due to either a small bowel obstruction or an ileus. Transition point is not definitely seen. Recommend clinical correlation. - Small amount fluid in the left perinephric space, with no evidence of significant obstructive uropathy. This finding is of uncertain clinical significance. Recommend correlation with urinalysis results. - See above for remaining findings.
[2017-12-09] MEDS ORDERED: Phytonadione 10 mg/ml Inj (Adult) SC ONE (03:13)
[2017-12-09 03:25] VITALS: BMI 23.4
[2017-12-09 05:41] LABS: INR 2.94 (0.93-1.08); PROTHROMBIN TIME 34.6 SECONDS (9.4-12.5)
[2017-12-09] MEDS ORDERED: Aztreonam 2 Gm in NS 100mL 100 ML IVPB SCH (06:00)
[2017-12-09 06:35] LABS: HDL CHOLESTEROL 20 mg/dL (29-60)
[2017-12-09 06:44] LABS: TROPONIN I 0.11 ng/mL
[2017-12-09 07:27] LABS: BASO # 0.03 K/mm3 (0.0-2.0); BASO % 0.1 % (0.0-3.0); GRAN # 33.88 (1.4-6.5); GRAN % 88.4 % (50.0-68.0); HEMOGLOBIN 9.9 g/dL (12.0-16.0); LYMPH # 2.3 (1.2-3.4); LYMPH % 6.1 % (22.0-35.0); MEAN CELL VOLUME 76.9 fl (80.0-105.0); MEAN CORPUSCULAR HEMOGLOBIN 24.1 pg (25.0-35.0); MEAN CORPUSCULAR HGB CONC 31.3 g/dl (31.0-37.0); MEAN PLATELET VOLUME 11.5 fl (7.0-11.0); MONO # 2.1 (0.1-0.6); MONO % 5.4 % (1.0-6.0); PLATELET COUNT 251 10^3/uL (120.0-450.0); RBC 4.11 10^6/uL (3.5-6.1); RED CELL DISTRIBUTION WIDTH 19.4 % (11.5-14.5)
[2017-12-09] MEDS ORDERED: NOREPINEPHRINE BIT/0.9 % NACL 4 MG/250 ML BAG IV PRN (07:34)
[2017-12-09 07:44] LABS: LDL CHOLESTEROL < 30 mg/dL (0-129)
--- NOTE | 2017-12-09 08:05 | CP.CCUPN ---
<Angel Bermudez - Last Filed: 12/09/17 11:45> CCU Subjective - Physician Review Subjective (Free Text): Patient seen and examined at bedside this AM. blood pressure 111/61. Currently AAO x 3, answers questions in full sentences. HR controlled in 80s. Cardizem drip held, currently not on pressors. Denies abd pain, chest pain, shortness of breath, nausea, vomiting, diarrhea. CCU Objective - Vital Signs / Intake & Output Vital Signs (Last 4 hours): Vital Signs Temp Pulse Resp BP Pulse Ox 12/09/17 06:00 103 H 34 H 95/57 L 12/09/17 05:50 91 H 31 H 99 12/09/17 05:45 90/64 L 12/09/17 05:44 93 H 34 H 95 12/09/17 05:40 106 H 34 H 94 L 12/09/17 05:30 85/60 L 12/09/17 05:29 91 H 32 H 96 12/09/17 05:20 94 H 29 H 96 12/09/17 05:16 108 H 31 H 88/50 L 96 12/09/17 05:15 88/53 L 12/09/17 05:14 122 H 38 H 96 12/09/17 05:10 134 H 37 H 98 12/09/17 05:00 85/55 L 12/09/17 04:59 124 H 37 H 95 12/09/17 04:50 111 H 34 H 96 12/09/17 04:45 91/56 L 12/09/17 04:44 104 H 30 H 96 12/09/17 04:40 97 H 33 H 95 12/09/17 04:30 91/51 L 12/09/17 04:29 105 H 31 H 95 12/09/17 04:25 105 H 29 H 98/52 L 97 12/09/17 04:20 107 H 37 H 88/54 L 96 12/09/17 04:10 98 H 30 H 94 L 12/09/17 04:00 98.6 F 101 H 31 H 93/62 L 93 L 12/09/17 03:57 113 H 33 H 97/46 L 94 L Intake and Output (Last 8hrs): Intake & Output 12/08/17 12/09/17 12/09/17 22:59 06:59 14:59 Intake Total 1100 Output Total 100 Balance 1000 Weight 141 lb Intake: IV 1100 Left Hand 300 Right Antecubital 150 Right Hand 650 Output: Urine 100 Urine, Voided 100 Other: Voiding Method Bedpan - Physical Exam Head: Positive for: Atraumatic, Normocephalic Pupils: Positive for: PERRL Extroacular Muscles: Positive for: EOMI Conjunctiva: Positive for: Normal Mouth: Positive for: Moist Mucous Membranes Neck: Positive for: Normal Range of Motion Respiratory/Chest: Positive for: Clear to Auscultation, Good Air Exchange. Negative for: Respiratory Distress, Accessory Muscle Use Cardiovascular: Positive for: Irregular Rhythm (Irregular, regular). Negative for: Murmurs, Tachycardic, Bradycardic Abdomen: Positive for: Normal Bowel Sounds, Hernias (ventral hernia), Scars ( Midline incision scar, PEG tube scar). Negative for: Tenderness, Distention, Peritoneal Signs Back: Positive for: Normal Inspection Upper Extremity: Positive for: Normal Inspection. Negative for: Cyanosis, Edema Lower Extremity: Positive for: Normal Inspection. Negative for: Edema Neurological: Positive for: GCS=15, CN II-XII Intact Skin: Positive for: Warm, Dry, Normal Color. Negative for: Rashes Psychiatric: Positive for: Oriented x 3 - Medications Active Medications: Active Medications Generic Name Dose Route Start Last Admin Trade Name Freq PRN Reason Stop Dose Admin Famotidine 20 mg 12/09/17 10:00 Pepcid IVP DAILY COLIN Sodium Chloride 1,000 mls @ 100 mls/hr 12/09/17 00:45 12/09/17 02:25 Sodium Chloride 0.9% IV 100 mls/hr .Q10H COLIN Administration Vancomycin HCl 1 gm in 250 mls @ 167 mls/hr 12/09/17 09:00 Vancomycin 1gm IVPB Q12H COLIN Protocol Meropenem 50 mls @ 100 mls/hr 12/09/17 07:30 Merrem Iv 1 Gm Premix IVPB 12/18/17 07:31 Q8 COLIN Protocol NOREPINEPHRINE BIT/0.9 % NACL 4 mg in 250 mls @ 15 mls/hr 12/09/17 07:34 Levophed 4 Mg/ 250 Ml Ns Premixed IV .[id number] PRN TITRATE PER MD ORDER Protocol 4 MCG/MIN Insulin Human Regular 0 units 12/09/17 07:30 Humulin R Low SC ACHS [facility] Protocol - Patient Studies Lab Studies: Lab Studies 12/09/17 12/09/17 12/09/17 Range/Units 04:55 04:55 04:55 PT 34.6 H (9.4-12.5) SECONDS INR 2.94 H (0.93-1.08) Lactate Dehydrogenase 674 (333-699) U/L Total Creatine Kinase 206 (35-230) U/L Troponin I 0.11 D ng/mL Triglycerides 163 H (35-160) mg/dL Cholesterol 70 L (130-200) mg/dL LDL Cholesterol Direct < 30 (0-129) mg/dL HDL Cholesterol 20 L (29-60) mg/dL Influenza Typ A,B (EIA) (NEGATIVE) Blood Type Antibody Screen BBK History Checked 12/09/17 12/09/17 Range/Units 04:45 02:35 PT (9.4-12.5) SECONDS INR (0.93-1.08) Lactate Dehydrogenase (333-699) U/L Total Creatine Kinase (35-230) U/L Troponin I ng/mL Triglycerides (35-160) mg/dL Cholesterol (130-200) mg/dL LDL Cholesterol Direct (0-129) mg/dL HDL Cholesterol (29-60) mg/dL Influenza Typ A,B (EIA) Negative for flu a/b (NEGATIVE) Blood Type A POSITIVE Antibody Screen Negative BBK History Checked Patient has bt Laboratory Results - last 24 hr 12/09/17 12/09/17 12/09/17 02:35 04:45 04:55 PT 34.6 H INR 2.94 H Lactate Dehydrogenase Total Creatine Kinase Troponin I Triglycerides Cholesterol LDL Cholesterol Direct HDL Cholesterol Influenza Typ A,B (EIA) Negative for flu a/b Blood Type A POSITIVE Antibody Screen Negative BBK History Checked Patient has bt 12/09/17 12/09/17 04:55 04:55 PT INR Lactate Dehydrogenase 674 Total Creatine Kinase 206 Troponin I 0.11 D Triglycerides 163 H Cholesterol 70 L LDL Cholesterol Direct < 30 HDL Cholesterol 20 L Influenza Typ A,B (EIA) Blood Type Antibody Screen BBK History Checked Critical Care Progress Note - Nutrition Nutrition: Nutrition Category Date Time Status NPO Diet [DIET] Diets 12/09/17 Breakfast Ordered Assessment/Plan - Assessment and Plan (Free Text) Assessment: 82F hx of HTN AFib, CVA admitted for lethargy and septic shock suspected source gallbladder. 4L of Fluids given. Pressors held at this time, pressure holding systolic in 80-90. Pt has supratherapeutic INR, given VitK and 2unit of FFP given, 2units FFP pending. Abx was given. CT evidence of cholelithiasis and possible choledocolithiasis US: multiple stones in CBD, evidence of cholecystitis. Plan: Neuro: AAOx3, responds to verbal stimuli, answers questions appropriately, follows commands, and moves extremities past midline Cardio: Afib w/ RVR- resolved off cardizem drip; rate control with beta-blockers c/s Dr. Loo- all recs appreciated Echo keep MAP > 65 monitor vitals, if pressure drops will place central line and start Levophed. Pulm: keep SaO2 above 92% GI: US: cholecystitis, choledocolithiasis Plan for ERCP today by GI NPO c/s GI Dr. Rasmussen- all recs appreciated c/s Surgery- Dr. Buckley Plan for cholecystectomy this visit Renal/electrolytes: Hypokalemia- resolved replete electrolytes PRN donahue strict I/O Endo: keep pt euglycemic and euvolemic Heme: 2units of FFP and VitK given, will receive 2 more units of FFP repeat INR Repeat VBG shock lactate trending down ID: IV abx Vanc and Merrem c/s Paulette case discussed w/ Dr. Tran Critical Care attending Angel Bermudez PGY1 <Fernando Tran - Last Filed: 12/09/17 17:46> CCU Objective - Vital Signs / Intake & Output Vital Signs (Last 4 hours): Vital Signs Temp Pulse Resp BP Pulse Ox 12/09/17 14:02 97.8 F 84 16 97/58 L 99 Intake and Output (Last 8hrs): Intake & Output 12/09/17 12/09/17 12/09/17 06:59 14:59 22:59 Intake Total 1100 Output Total 100 Balance 1000 Weight 141 lb 152 lb Intake: IV 1100 Left Hand 300 Right Antecubital 150 Right Hand 650 Output: Urine 100 Urine, Voided 100 Other: Voiding Method Bedpan - Medications Active Medications: Active Medications Generic Name Dose Route Start Last Admin Trade Name Freq PRN Reason Stop Dose Admin Famotidine 20 mg 12/09/17 10:00 12/09/17 11:20 Pepcid IVP 20 mg DAILY COLIN Administration Meropenem 50 mls @ 100 mls/hr 12/09/17 07:30 12/09/17 16:43 Merrem Iv 1 Gm Premix IVPB 12/18/17 07:31 100 mls/hr Q8 COLIN Administration Protocol NOREPINEPHRINE BIT/0.9 % NACL 4 mg in 250 mls @ 15 mls/hr 12/09/17 07:34 Levophed 4 Mg/ 250 Ml Ns Premixed IV .[id number] PRN TITRATE PER MD ORDER Protocol 4 MCG/MIN Dobutamine HCl/Dextrose 500 mg in 250 mls @ 3.837 mls/hr 12/09/17 10:44 12/09 11:00 Dobutamine/Dextrose 5% 500mg/250ml IV 2 mcg/kg/min .Q24H PRN 3.837 mls/hr TITRATE PER PROTOCOL Administration Protocol 2 MCG/KG/MIN Lactated Ringer's 1,000 mls @ 150 mls/hr 12/09/17 17:45 Lactated Ringer's IV .[id number] [facility] Insulin Human Regular 0 units 12/09/17 07:30 12/09/17 16:42 Humulin R Low SC 1 units ACHS COLIN Administration Protocol - Patient Studies Lab Studies: Lab Studies 12/09/17 12/09/17 12/09/17 Range/Units 17:07 17:07 17:07 WBC 36.2 H* (4.5-11.0) 10^3/ul RBC 3.51 (3.5-6.1) 10^6/uL Hgb 8.5 L (12.0-16.0) g/dL Hct 26.9 L (36.0-48.0) % MCV 76.6 L (80.0-105.0) fl MCH 24.2 L (25.0-35.0) pg MCHC 31.6 (31.0-37.0) g/dl RDW 19.5 H (11.5-14.5) % Plt Count 165 (120.0-450.0) 10^3/uL MPV 11.4 H (7.0-11.0) fl Gran % 86.0 H (50.0-68.0) % Lymph % (Auto) 5.5 L (22.0-35.0) % [place] % (Auto) 8.4 H (1.0-6.0) % Eos % (Auto) 0.0 L (1.5-5.0) % Baso % (Auto) 0.1 (0.0-3.0) % Gran # 31.14 H (1.4-6.5) Lymph # 2.0 (1.2-3.4) [place] # 3.1 H (0.1-0.6) Eos # 0.0 (0.0-0.7) Baso # 0.04 (0.0-2.0) K/mm3 Neutrophils % (Manual) (50.0-70.0) % Band Neutrophils % (0-2) % Lymphocytes % (Manual) (22.0-35.0) % Monocytes % (Manual) (1.0-6.0) % Platelet Evaluation (NORMAL) Large Platelets Giant Platelets PT (9.4-12.5) SECONDS INR (0.93-1.08) pO2 120 H (30-55) mm/Hg VBG pH 7.40 (7.32-7.43) VBG pCO2 39.0 L (40-60) VBG HCO3 24.2 (21-28) mmol/l VBG Total CO2 25.4 (22-28) mmol.L VBG O2 Sat (Calc) 99.5 H (40-65) % VBG Base Excess -0.5 L (0.0-2.0) mmol/L VBG Potassium 3.9 (3.6-5.2) mmol/L Glucose 212 H (65-105) mg/dl Lactate 1.7 (0.7-2.1) mmol/L FiO2 21.0 % Sodium 139 143.0 (132-148) mmol/L Potassium 3.9 (3.6-5.0) mmol/L Chloride 106 111.0 H (98-107) mmol/L Carbon Dioxide 24 (21-33) mmol/L Anion Gap 13 (10-20) BUN 39 H (7-21) mg/dL Creatinine 1.1 (0.7-1.2) mg/dl Est GFR ( Amer) 57 Est GFR (Non-Af Amer) 47 POC Glucose (mg/dL) (65-110) mg/dL Random Glucose 205 H (70-110) mg/dL Calcium 7.7 L (8.4-10.5) mg/dL Iron (45-180) ug/dL TIBC (265-497) ug/dL % Saturation (20-55) % Ferritin ng/mL Total Bilirubin 3.0 H (0.2-1.3) mg/dL AST 114 H D (14-36) U/L ALT 247 H (7-56) U/L Alkaline Phosphatase 355 H D (38-126) U/L Lactate Dehydrogenase (333-699) U/L Total Creatine Kinase (35-230) U/L CK-MB (CK-2) (0.0-3.6) ng/mL CK-MB (CK-2) % Troponin I ng/mL Total Protein 6.1 (5.8-8.3) g/dL Albumin 2.9 L (3.0-4.8) g/dL Globulin 3.2 gm/dL Albumin/Globulin Ratio 0.9 L (1.1-1.8) Triglycerides (35-160) mg/dL Cholesterol (130-200) mg/dL LDL Cholesterol Direct (0-129) mg/dL HDL Cholesterol (29-60) mg/dL Venous Blood Potassium 3.9 (3.6-5.2) mmol/L Hepatitis A IgM Ab (NEGATIVE) Hep Bs Antigen (NEGATIVE) Hep B Core IgM Ab (NEGATIVE) Hepatitis C Antibody (NEGATIVE) Influenza Typ A,B (EIA) (NEGATIVE) Blood Type Antibody Screen BBK History Checked 12/09/17 12/09/17 12/09/17 Range/Units 16:19 13:32 12:40 WBC (4.5-11.0) 10^3/ul RBC (3.5-6.1) 10^6/uL Hgb (12.0-16.0) g/dL Hct (36.0-48.0) % MCV (80.0-105.0) fl MCH (25.0-35.0) pg MCHC (31.0-37.0) g/dl RDW (11.5-14.5) % Plt Count (120.0-450.0) 10^3/uL MPV (7.0-11.0) fl Gran % (50.0-68.0) % Lymph % (Auto) (22.0-35.0) % [place] % (Auto) (1.0-6.0) % Eos % (Auto) (1.5-5.0) % Baso % (Auto) (0.0-3.0) % Gran # (1.4-6.5) Lymph # (1.2-3.4) [place] # (0.1-0.6) Eos # (0.0-0.7) Baso # (0.0-2.0) K/mm3 Neutrophils % (Manual) (50.0-70.0) % Band Neutrophils % (0-2) % Lymphocytes % (Manual) (22.0-35.0) % Monocytes % (Manual) (1.0-6.0) % Platelet Evaluation (NORMAL) Large Platelets Giant Platelets PT 28.0 H (9.4-12.5) SECONDS INR 2.41 H (0.93-1.08) pO2 179 H (30-55) mm/Hg VBG pH 7.39 (7.32-7.43) VBG pCO2 37.0 L (40-60) VBG HCO3 22.4 (21-28) mmol/l VBG Total CO2 23.5 (22-28) mmol.L VBG O2 Sat (Calc) 99.3 H (40-65) % VBG Base Excess -2.2 L (0.0-2.0) mmol/L VBG Potassium 3.9 (3.6-5.2) mmol/L Glucose 255 H (65-105) mg/dl Lactate 2.5 H (0.7-2.1) mmol/L FiO2 21.0 % Sodium 141.0 (132-148) mmol/L Potassium (3.6-5.0) mmol/L Chloride 110.0 H (98-107) mmol/L Carbon Dioxide (21-33) mmol/L Anion Gap (10-20) BUN (7-21) mg/dL Creatinine (0.7-1.2) mg/dl Est GFR ( Amer) Est GFR (Non-Af Amer) POC Glucose (mg/dL) 197 H (65-110) mg/dL Random Glucose (70-110) mg/dL Calcium (8.4-10.5) mg/dL Iron (45-180) ug/dL TIBC (265-497) ug/dL % Saturation (20-55) % Ferritin ng/mL Total Bilirubin (0.2-1.3) mg/dL AST (14-36) U/L ALT (7-56) U/L Alkaline Phosphatase (38-126) U/L Lactate Dehydrogenase (333-699) U/L Total Creatine Kinase (35-230) U/L CK-MB (CK-2) (0.0-3.6) ng/mL CK-MB (CK-2) % Troponin I ng/mL Total Protein (5.8-8.3) g/dL Albumin (3.0-4.8) g/dL Globulin gm/dL Albumin/Globulin Ratio (1.1-1.8) Triglycerides (35-160) mg/dL Cholesterol (130-200) mg/dL LDL Cholesterol Direct (0-129) mg/dL HDL Cholesterol (29-60) mg/dL Venous Blood Potassium 3.9 (3.6-5.2) mmol/L Hepatitis A IgM Ab (NEGATIVE) Hep Bs Antigen (NEGATIVE) Hep B Core IgM Ab (NEGATIVE) Hepatitis C Antibody (NEGATIVE) Influenza Typ A,B (EIA) (NEGATIVE) Blood Type Antibody Screen BBK History Checked 12/09/17 12/09/17 12/09/17 Range/Units 12:40 11:01 08:46 WBC (4.5-11.0) 10^3/ul RBC (3.5-6.1) 10^6/uL Hgb (12.0-16.0) g/dL Hct (36.0-48.0) % MCV (80.0-105.0) fl MCH (25.0-35.0) pg MCHC (31.0-37.0) g/dl RDW (11.5-14.5) % Plt Count (120.0-450.0) 10^3/uL MPV (7.0-11.0) fl Gran % (50.0-68.0) % Lymph % (Auto) (22.0-35.0) % [place] % (Auto) (1.0-6.0) % Eos % (Auto) (1.5-5.0) % Baso % (Auto) (0.0-3.0) % Gran # (1.4-6.5) Lymph # (1.2-3.4) [place] # (0.1-0.6) Eos # (0.0-0.7) Baso # (0.0-2.0) K/mm3 Neutrophils % (Manual) (50.0-70.0) % Band Neutrophils % (0-2) % Lymphocytes % (Manual) (22.0-35.0) % Monocytes % (Manual) (1.0-6.0) % Platelet Evaluation (NORMAL) Large Platelets Giant Platelets PT (9.4-12.5) SECONDS INR (0.93-1.08) pO2 (30-55) mm/Hg VBG pH (7.32-7.43) VBG pCO2 (40-60) VBG HCO3 (21-28) mmol/l VBG Total CO2 (22-28) mmol.L VBG O2 Sat (Calc) (40-65) % VBG Base Excess (0.0-2.0) mmol/L VBG Potassium (3.6-5.2) mmol/L Glucose (65-105) mg/dl Lactate (0.7-2.1) mmol/L FiO2 % Sodium (132-148) mmol/L Potassium (3.6-5.0) mmol/L Chloride (98-107) mmol/L Carbon Dioxide (21-33) mmol/L Anion Gap (10-20) BUN (7-21) mg/dL Creatinine (0.7-1.2) mg/dl Est GFR ( Amer) Est GFR (Non-Af Amer) POC Glucose (mg/dL) 222 H 228 H (65-110) mg/dL Random Glucose (70-110) mg/dL Calcium (8.4-10.5) mg/dL Iron (45-180) ug/dL TIBC (265-497) ug/dL % Saturation (20-55) % Ferritin ng/mL Total Bilirubin (0.2-1.3) mg/dL AST (14-36) U/L ALT (7-56) U/L Alkaline Phosphatase (38-126) U/L Lactate Dehydrogenase 682 (333-699) U/L Total Creatine Kinase 232 H (35-230) U/L CK-MB (CK-2) 2.7 (0.0-3.6) ng/mL CK-MB (CK-2) % Cancelled Troponin I 0.09 ng/mL Total Protein (5.8-8.3) g/dL Albumin (3.0-4.8) g/dL Globulin gm/dL Albumin/Globulin Ratio (1.1-1.8) Triglycerides (35-160) mg/dL Cholesterol (130-200) mg/dL LDL Cholesterol Direct (0-129) mg/dL HDL Cholesterol (29-60) mg/dL Venous Blood Potassium (3.6-5.2) mmol/L Hepatitis A IgM Ab (NEGATIVE) Hep Bs Antigen (NEGATIVE) Hep B Core IgM Ab (NEGATIVE) Hepatitis C Antibody (NEGATIVE) Influenza Typ A,B (EIA) (NEGATIVE) Blood Type Antibody Screen BBK History Checked 12/09/17 12/09/17 12/09/17 Range/Units 06:21 05:40 05:40 WBC 38.3 H* D (4.5-11.0) 10^3/ul RBC 4.11 (3.5-6.1) 10^6/uL Hgb 9.9 L (12.0-16.0) g/dL Hct 31.6 L (36.0-48.0) % MCV 76.9 L (80.0-105.0) fl MCH 24.1 L (25.0-35.0) pg MCHC 31.3 (31.0-37.0) g/dl RDW 19.4 H (11.5-14.5) % Plt Count 251 (120.0-450.0) 10^3/uL MPV 11.5 H (7.0-11.0) fl Gran % 88.4 H (50.0-68.0) % Lymph % (Auto) 6.1 L (22.0-35.0) % [place] % (Auto) 5.4 (1.0-6.0) % Eos % (Auto) 0.0 L (1.5-5.0) % Baso % (Auto) 0.1 (0.0-3.0) % Gran # 33.88 H (1.4-6.5) Lymph # 2.3 (1.2-3.4) [place] # 2.1 H (0.1-0.6) Eos # 0.0 (0.0-0.7) Baso # 0.03 (0.0-2.0) K/mm3 Neutrophils % (Manual) 71 H (50.0-70.0) % Band Neutrophils % 18 H* (0-2) % Lymphocytes % (Manual) 8 L (22.0-35.0) % Monocytes % (Manual) 3 (1.0-6.0) % Platelet Evaluation Normal (NORMAL) Large Platelets Present Giant Platelets Present PT (9.4-12.5) SECONDS INR (0.93-1.08) pO2 (30-55) mm/Hg VBG pH (7.32-7.43) VBG pCO2 (40-60) VBG HCO3 (21-28) mmol/l VBG Total CO2 (22-28) mmol.L VBG O2 Sat (Calc) (40-65) % VBG Base Excess (0.0-2.0) mmol/L VBG Potassium (3.6-5.2) mmol/L Glucose (65-105) mg/dl Lactate (0.7-2.1) mmol/L FiO2 % Sodium 140 (132-148) mmol/L Potassium 4.4 (3.6-5.0) mmol/L Chloride 104 (98-107) mmol/L Carbon Dioxide 24 (21-33) mmol/L Anion Gap 17 (10-20) BUN 32 H (7-21) mg/dL Creatinine 1.3 H (0.7-1.2) mg/dl Est GFR ( Amer) 47 Est GFR (Non-Af Amer) 39 POC Glucose (mg/dL) (65-110) mg/dL Random Glucose 163 H (70-110) mg/dL Calcium 8.5 (8.4-10.5) mg/dL Iron (45-180) ug/dL TIBC (265-497) ug/dL % Saturation (20-55) % Ferritin ng/mL Total Bilirubin 3.7 H (0.2-1.3) mg/dL AST 182 H (14-36) U/L ALT 334 H (7-56) U/L Alkaline Phosphatase 478 H D (38-126) U/L Lactate Dehydrogenase (333-699) U/L Total Creatine Kinase (35-230) U/L CK-MB (CK-2) (0.0-3.6) ng/mL CK-MB (CK-2) % Troponin I ng/mL Total Protein 6.1 (5.8-8.3) g/dL Albumin 3.1 (3.0-4.8) g/dL Globulin 3.1 gm/dL Albumin/Globulin Ratio 1.0 L (1.1-1.8) Triglycerides (35-160) mg/dL Cholesterol (130-200) mg/dL LDL Cholesterol Direct (0-129) mg/dL HDL Cholesterol (29-60) mg/dL Venous Blood Potassium (3.6-5.2) mmol/L Hepatitis A IgM Ab Negative (NEGATIVE) Hep Bs Antigen Negative (NEGATIVE) Hep B Core IgM Ab Negative (NEGATIVE) Hepatitis C Antibody Negative (NEGATIVE) Influenza Typ A,B (EIA) (NEGATIVE) Blood Type Antibody Screen BBK History Checked 12/09/17 12/09/17 12/09/17 Range/Units 04:55 04:55 04:55 WBC (4.5-11.0) 10^3/ul RBC (3.5-6.1) 10^6/uL Hgb (12.0-16.0) g/dL Hct (36.0-48.0) % MCV (80.0-105.0) fl MCH (25.0-35.0) pg MCHC (31.0-37.0) g/dl RDW (11.5-14.5) % Plt Count (120.0-450.0) 10^3/uL MPV (7.0-11.0) fl Gran % (50.0-68.0) % Lymph % (Auto) (22.0-35.0) % [place] % (Auto) (1.0-6.0) % Eos % (Auto) (1.5-5.0) % Baso % (Auto) (0.0-3.0) % Gran # (1.4-6.5) Lymph # (1.2-3.4) [place] # (0.1-0.6) Eos # (0.0-0.7) Baso # (0.0-2.0) K/mm3 Neutrophils % (Manual) (50.0-70.0) % Band Neutrophils % (0-2) % Lymphocytes % (Manual) (22.0-35.0) % Monocytes % (Manual) (1.0-6.0) % Platelet Evaluation (NORMAL) Large Platelets Giant Platelets PT (9.4-12.5) SECONDS INR (0.93-1.08) pO2 (30-55) mm/Hg VBG pH (7.32-7.43) VBG pCO2 (40-60) VBG HCO3 (21-28) mmol/l VBG Total CO2 (22-28) mmol.L VBG O2 Sat (Calc) (40-65) % VBG Base Excess (0.0-2.0) mmol/L VBG Potassium (3.6-5.2) mmol/L Glucose (65-105) mg/dl Lactate (0.7-2.1) mmol/L FiO2 % Sodium (132-148) mmol/L Potassium (3.6-5.0) mmol/L Chloride (98-107) mmol/L Carbon Dioxide (21-33) mmol/L Anion Gap (10-20) BUN (7-21) mg/dL Creatinine (0.7-1.2) mg/dl Est GFR ( Amer) Est GFR (Non-Af Amer) POC Glucose (mg/dL) (65-110) mg/dL Random Glucose (70-110) mg/dL Calcium (8.4-10.5) mg/dL Iron 10 L (45-180) ug/dL TIBC 334 (265-497) ug/dL % Saturation 3 L (20-55) % Ferritin 49.3 ng/mL Total Bilirubin (0.2-1.3) mg/dL AST (14-36) U/L ALT (7-56) U/L Alkaline Phosphatase (38-126) U/L Lactate Dehydrogenase 674 (333-699) U/L Total Creatine Kinase 206 (35-230) U/L CK-MB (CK-2) (0.0-3.6) ng/mL CK-MB (CK-2) % Troponin I 0.11 D ng/mL Total Protein (5.8-8.3) g/dL Albumin (3.0-4.8) g/dL Globulin gm/dL Albumin/Globulin Ratio (1.1-1.8) Triglycerides 163 H (35-160) mg/dL Cholesterol 70 L (130-200) mg/dL LDL Cholesterol Direct < 30 (0-129) mg/dL HDL Cholesterol 20 L (29-60) mg/dL Venous Blood Potassium (3.6-5.2) mmol/L Hepatitis A IgM Ab (NEGATIVE) Hep Bs Antigen (NEGATIVE) Hep B Core IgM Ab (NEGATIVE) Hepatitis C Antibody (NEGATIVE) Influenza Typ A,B (EIA) (NEGATIVE) Blood Type Antibody Screen BBK History Checked 12/09/17 12/09/17 12/09/17 Range/Units 04:55 04:45 02:35 WBC (4.5-11.0) 10^3/ul RBC (3.5-6.1) 10^6/uL Hgb (12.0-16.0) g/dL Hct (36.0-48.0) % MCV (80.0-105.0) fl MCH (25.0-35.0) pg MCHC (31.0-37.0) g/dl RDW (11.5-14.5) % Plt Count (120.0-450.0) 10^3/uL MPV (7.0-11.0) fl Gran % (50.0-68.0) % Lymph % (Auto) (22.0-35.0) % [place] % (Auto) (1.0-6.0) % Eos % (Auto) (1.5-5.0) % Baso % (Auto) (0.0-3.0) % Gran # (1.4-6.5) Lymph # (1.2-3.4) [place] # (0.1-0.6) Eos # (0.0-0.7) Baso # (0.0-2.0) K/mm3 Neutrophils % (Manual) (50.0-70.0) % Band Neutrophils % (0-2) % Lymphocytes % (Manual) (22.0-35.0) % Monocytes % (Manual) (1.0-6.0) % Platelet Evaluation (NORMAL) Large Platelets Giant Platelets PT 34.6 H (9.4-12.5) SECONDS INR 2.94 H (0.93-1.08) pO2 (30-55) mm/Hg VBG pH (7.32-7.43) VBG pCO2 (40-60) VBG HCO3 (21-28) mmol/l VBG Total CO2 (22-28) mmol.L VBG O2 Sat (Calc) (40-65) % VBG Base Excess (0.0-2.0) mmol/L VBG Potassium (3.6-5.2) mmol/L Glucose (65-105) mg/dl Lactate (0.7-2.1) mmol/L FiO2 % Sodium (132-148) mmol/L Potassium (3.6-5.0) mmol/L Chloride (98-107) mmol/L Carbon Dioxide (21-33) mmol/L Anion Gap (10-20) BUN (7-21) mg/dL Creatinine (0.7-1.2) mg/dl Est GFR ( Amer) Est GFR (Non-Af Amer) POC Glucose (mg/dL) (65-110) mg/dL Random Glucose (70-110) mg/dL Calcium (8.4-10.5) mg/dL Iron (45-180) ug/dL TIBC (265-497) ug/dL % Saturation (20-55) % Ferritin ng/mL Total Bilirubin (0.2-1.3) mg/dL AST (14-36) U/L ALT (7-56) U/L Alkaline Phosphatase (38-126) U/L Lactate Dehydrogenase (333-699) U/L Total Creatine Kinase (35-230) U/L CK-MB (CK-2) (0.0-3.6) ng/mL CK-MB (CK-2) % Troponin I ng/mL Total Protein (5.8-8.3) g/dL Albumin (3.0-4.8) g/dL Globulin gm/dL Albumin/Globulin Ratio (1.1-1.8) Triglycerides (35-160) mg/dL Cholesterol (130-200) mg/dL LDL Cholesterol Direct (0-129) mg/dL HDL Cholesterol (29-60) mg/dL Venous Blood Potassium (3.6-5.2) mmol/L Hepatitis A IgM Ab (NEGATIVE) Hep Bs Antigen (NEGATIVE) Hep B Core IgM Ab (NEGATIVE) Hepatitis C Antibody (NEGATIVE) Influenza Typ A,B (EIA) Negative for flu a/b (NEGATIVE) Blood Type A POSITIVE Antibody Screen Negative BBK History Checked Patient has bt Laboratory Results - last 24 hr 12/09/17 12/09/17 12/09/17 02:35 04:45 04:55 WBC RBC Hgb Hct MCV MCH MCHC RDW Plt Count MPV Gran % Lymph % (Auto) [place] % (Auto) Eos % (Auto) Baso % (Auto) Gran # Lymph # [place] # Eos # Baso # Neutrophils % (Manual) Band Neutrophils % Lymphocytes % (Manual) Monocytes % (Manual) Platelet Evaluation Large Platelets Giant Platelets PT 34.6 H INR 2.94 H pO2 VBG pH VBG pCO2 VBG HCO3 VBG Total CO2 VBG O2 Sat (Calc) VBG Base Excess VBG Potassium Glucose Lactate FiO2 Sodium Potassium Chloride Carbon Dioxide Anion Gap BUN Creatinine Est GFR ( Amer) Est GFR (Non-Af Amer) POC Glucose (mg/dL) Random Glucose Calcium Iron TIBC % Saturation Ferritin Total Bilirubin AST ALT Alkaline Phosphatase Lactate Dehydrogenase Total Creatine Kinase CK-MB (CK-2) CK-MB (CK-2) % Troponin I Total Protein Albumin Globulin Albumin/Globulin Ratio Triglycerides Cholesterol LDL Cholesterol Direct HDL Cholesterol Venous Blood Potassium Hepatitis A IgM Ab Hep Bs Antigen Hep B Core IgM Ab Hepatitis C Antibody Influenza Typ A,B (EIA) Negative for flu a/b Blood Type A POSITIVE Antibody Screen Negative BBK History Checked Patient has bt 12/09/17 12/09/17 12/09/17 04:55 04:55 04:55 WBC RBC Hgb Hct MCV MCH MCHC RDW Plt Count MPV Gran % Lymph % (Auto) [place] % (Auto) Eos % (Auto) Baso % (Auto) Gran # Lymph # [place] # Eos # Baso # Neutrophils % (Manual) Band Neutrophils % Lymphocytes % (Manual) Monocytes % (Manual) Platelet Evaluation Large Platelets Giant Platelets PT INR pO2 VBG pH VBG pCO2 VBG HCO3 VBG Total CO2 VBG O2 Sat (Calc) VBG Base Excess VBG Potassium Glucose Lactate FiO2 Sodium Potassium Chloride Carbon Dioxide Anion Gap BUN Creatinine Est GFR ( Amer) Est GFR (Non-Af Amer) POC Glucose (mg/dL) Random Glucose Calcium Iron 10 L TIBC 334 % Saturation 3 L Ferritin 49.3 Total Bilirubin AST ALT Alkaline Phosphatase Lactate Dehydrogenase 674 Total Creatine Kinase 206 CK-MB (CK-2) CK-MB (CK-2) % Troponin I 0.11 D Total Protein Albumin Globulin Albumin/Globulin Ratio Triglycerides 163 H Cholesterol 70 L LDL Cholesterol Direct < 30 HDL Cholesterol 20 L Venous Blood Potassium Hepatitis A IgM Ab Hep Bs Antigen Hep B Core IgM Ab Hepatitis C Antibody Influenza Typ A,B (EIA) Blood Type Antibody Screen BBK History Checked 12/09/17 12/09/17 12/09/17 05:40 05:40 06:21 WBC 38.3 H* D RBC 4.11 Hgb 9.9 L Hct 31.6 L MCV 76.9 L MCH 24.1 L MCHC 31.3 RDW 19.4 H Plt Count 251 MPV 11.5 H Gran % 88.4 H Lymph % (Auto) 6.1 L [place] % (Auto) 5.4 Eos % (Auto) 0.0 L Baso % (Auto) 0.1 Gran # 33.88 H Lymph # 2.3 [place] # 2.1 H Eos # 0.0 Baso # 0.03 Neutrophils % (Manual) 71 H Band Neutrophils % 18 H* Lymphocytes % (Manual) 8 L Monocytes % (Manual) 3 Platelet Evaluation Normal Large Platelets Present Giant Platelets Present PT INR pO2 VBG pH VBG pCO2 VBG HCO3 VBG Total CO2 VBG O2 Sat (Calc) VBG Base Excess VBG Potassium Glucose Lactate FiO2 Sodium 140 Potassium 4.4 Chloride 104 Carbon Dioxide 24 Anion Gap 17 BUN 32 H Creatinine 1.3 H Est GFR ( Amer) 47 Est GFR (Non-Af Amer) 39 POC Glucose (mg/dL) Random Glucose 163 H Calcium 8.5 Iron TIBC % Saturation Ferritin Total Bilirubin 3.7 H AST 182 H ALT 334 H Alkaline Phosphatase 478 H D Lactate Dehydrogenase Total Creatine Kinase CK-MB (CK-2) CK-MB (CK-2) % Troponin I Total Protein 6.1 Albumin 3.1 Globulin 3.1 Albumin/Globulin Ratio 1.0 L Triglycerides Cholesterol LDL Cholesterol Direct HDL Cholesterol Venous Blood Potassium Hepatitis A IgM Ab Negative Hep Bs Antigen Negative Hep B Core IgM Ab Negative Hepatitis C Antibody Negative Influenza Typ A,B (EIA) Blood Type Antibody Screen BBK History Checked 12/09/17 12/09/17 12/09/17 08:46 11:01 12:40 WBC RBC Hgb Hct MCV MCH MCHC RDW Plt Count MPV Gran % Lymph % (Auto) [place] % (Auto) Eos % (Auto) Baso % (Auto) Gran # Lymph # [place] # Eos # Baso # Neutrophils % (Manual) Band Neutrophils % Lymphocytes % (Manual) Monocytes % (Manual) Platelet Evaluation Large Platelets Giant Platelets PT INR pO2 VBG pH VBG pCO2 VBG HCO3 VBG Total CO2 VBG O2 Sat (Calc) VBG Base Excess VBG Potassium Glucose Lactate FiO2 Sodium Potassium Chloride Carbon Dioxide Anion Gap BUN Creatinine Est GFR ( Amer) Est GFR (Non-Af Amer) POC Glucose (mg/dL) 228 H 222 H Random Glucose Calcium Iron TIBC % Saturation Ferritin Total Bilirubin AST ALT Alkaline Phosphatase Lactate Dehydrogenase 682 Total Creatine Kinase 232 H CK-MB (CK-2) 2.7 CK-MB (CK-2) % Cancelled Troponin I 0.09 Total Protein Albumin Globulin Albumin/Globulin Ratio Triglycerides Cholesterol LDL Cholesterol Direct HDL Cholesterol Venous Blood Potassium Hepatitis A IgM Ab Hep Bs Antigen Hep B Core IgM Ab Hepatitis C Antibody Influenza Typ A,B (EIA) Blood Type Antibody Screen BBK History Checked 12/09/17 12/09/17 12/09/17 12:40 13:32 16:19 WBC RBC Hgb Hct MCV MCH MCHC RDW Plt Count MPV Gran % Lymph % (Auto) [place] % (Auto) Eos % (Auto) Baso % (Auto) Gran # Lymph # [place] # Eos # Baso # Neutrophils % (Manual) Band Neutrophils % Lymphocytes % (Manual) Monocytes % (Manual) Platelet Evaluation Large Platelets Giant Platelets PT 28.0 H INR 2.41 H pO2 179 H VBG pH 7.39 VBG pCO2 37.0 L VBG HCO3 22.4 VBG Total CO2 23.5 VBG O2 Sat (Calc) 99.3 H VBG Base Excess -2.2 L VBG Potassium 3.9 Glucose 255 H Lactate 2.5 H FiO2 21.0 Sodium 141.0 Potassium Chloride 110.0 H Carbon Dioxide Anion Gap BUN Creatinine Est GFR ( Amer) Est GFR (Non-Af Amer) POC Glucose (mg/dL) 197 H Random Glucose Calcium Iron TIBC % Saturation Ferritin Total Bilirubin AST ALT Alkaline Phosphatase Lactate Dehydrogenase Total Creatine Kinase CK-MB (CK-2) CK-MB (CK-2) % Troponin I Total Protein Albumin Globulin Albumin/Globulin Ratio Triglycerides Cholesterol LDL Cholesterol Direct HDL Cholesterol Venous Blood Potassium 3.9 Hepatitis A IgM Ab Hep Bs Antigen Hep B Core IgM Ab Hepatitis C Antibody Influenza Typ A,B (EIA) Blood Type Antibody Screen BBK History Checked 12/09/17 12/09/17 12/09/17 17:07 17:07 17:07 WBC 36.2 H* RBC 3.51 Hgb 8.5 L Hct 26.9 L MCV 76.6 L MCH 24.2 L MCHC 31.6 RDW 19.5 H Plt Count 165 MPV 11.4 H Gran % 86.0 H Lymph % (Auto) 5.5 L [place] % (Auto) 8.4 H Eos % (Auto) 0.0 L Baso % (Auto) 0.1 Gran # 31.14 H Lymph # 2.0 [place] # 3.1 H Eos # 0.0 Baso # 0.04 Neutrophils % (Manual) Band Neutrophils % Lymphocytes % (Manual) Monocytes % (Manual) Platelet Evaluation Large Platelets Giant Platelets PT INR pO2 120 H VBG pH 7.40 VBG pCO2 39.0 L VBG HCO3 24.2 VBG Total CO2 25.4 VBG O2 Sat (Calc) 99.5 H VBG Base Excess -0.5 L VBG Potassium 3.9 Glucose 212 H Lactate 1.7 FiO2 21.0 Sodium 143.0 139 Potassium 3.9 Chloride 111.0 H 106 Carbon Dioxide 24 Anion Gap 13 BUN 39 H Creatinine 1.1 Est GFR ( Amer) 57 Est GFR (Non-Af Amer) 47 POC Glucose (mg/dL) Random Glucose 205 H Calcium 7.7 L Iron TIBC % Saturation Ferritin Total Bilirubin 3.0 H AST 114 H D ALT 247 H Alkaline Phosphatase 355 H D Lactate Dehydrogenase Total Creatine Kinase CK-MB (CK-2) CK-MB (CK-2) % Troponin I Total Protein 6.1 Albumin 2.9 L Globulin 3.2 Albumin/Globulin Ratio 0.9 L Triglycerides Cholesterol LDL Cholesterol Direct HDL Cholesterol Venous Blood Potassium 3.9 Hepatitis A IgM Ab Hep Bs Antigen Hep B Core IgM Ab Hepatitis C Antibody Influenza Typ A,B (EIA) Blood Type Antibody Screen BBK History Checked EKG/Cardiology Studies: Cardiology / EKG Studies 12/09/17 10:23 ELECTROCARDIOGRAM Stat Comment: Reason For Exam: CP PRE OP:: N Does Patient Have a Pacemaker?: No Critical Care Progress Note - Nutrition Nutrition: Nutrition Category Date Time Status NPO Diet [DIET] Diets 12/09/17 Breakfast Ordered Attending/Attestation - Attestation I have personally seen and examined this patient.: Yes I have fully participated in the care of the patient.: Yes I have reviewed all pertinent clinical information: Yes Notes (Text): 12/09/17 17:43 82 yo with septic shock and MODS due to acute cholecystitis and ascending cholangitis, s/p fluid resuscitation, abx, weaning pressors, ERCP with stents. SUSIE improved, leukocytosis is trending down. surgical consult is appreciated--> cholecystectomy soon. cont dobutrex for systolyc LV dysfunction for now. hemodynamic stability restored. advance diet when cleared by GI and surgery. oob to chair, PT, IS, IVF. lactic acidosis resolved ccm time 40 min
[2017-12-09 08:06] LABS: WHITE BLOOD COUNT 38.3 10^3/ul (4.5-11.0)
[2017-12-09] MEDS: Meropenem IV 1 gm in NS 50 ML IVPB SCH ×3 (08:44→22:05)
[2017-12-09] MEDS: Insulin Reg-LOW-Coverage SC SCH ×4 (08:58→22:04)
[2017-12-09] MEDS ORDERED: Vancomycin 1gm in NS 250ml 1 GM/250 ML BAG IVPB SCH (09:00)
--- NOTE | 2017-12-09 09:05 | RAD ---
HISTORY: Sepsis Patient COMPARISON: 12/22/2016. FINDINGS: LUNGS: There is multifocal atelectasis/ scarring in the lungs. There is mild pulmonary venous congestion. No focal consolidation. . PLEURA: No significant pleural effusion identified, no pneumothorax apparent. CARDIOVASCULAR: The heart remains enlarged. Atherosclerotic aortic arch calcifications are present. OSSEOUS STRUCTURES: No significant abnormalities. VISUALIZED UPPER ABDOMEN: Normal. OTHER FINDINGS: None. IMPRESSION: Mild cardiomegaly and pulmonary venous congestion. No active pulmonary disease.
[2017-12-09 09:22] LABS: LYMPHOCYTE 8 % (22.0-35.0); NEUTROPHIL 71 % (50.0-70.0)
[2017-12-09 09:23] LABS: BAND 18 % (0-2); GIANT PLATELETS PRESENT; LARGE PLATELETS PRESENT; MONOCYTE 3 % (1.0-6.0); PLATELET ESTIMATE NORMAL (NORMAL)
[2017-12-09 09:24] LABS: ALBUMIN 3.1 g/dL (3.0-4.8); CALCIUM 8.5 mg/dL (8.4-10.5)
[2017-12-09 10:17] LABS: % IRON SATURATION 3 % (20-55); IRON 10 ug/dL (45-180); TOTAL IRON BINDING CAPACITY 334 ug/dL (265-497)
--- NOTE | 2017-12-09 10:37 | US ---
HISTORY: elevated liver enzymes COMPARISON: CT abdomen and pelvis from 12/09/2017 TECHNIQUE: Sonographic evaluation of the abdomen. FINDINGS: LIVER: Measures 19.2 cm. Normal echogenicity of the liver parenchyma. No mass. No intrahepatic bile duct dilatation. GALLBLADDER: The gallbladder is distended. There are gallstones, there is a 1.7 cm gallstone in the region of the neck. There is mild diffuse gallbladder wall thickening and pericholecystic fluid. COMMON BILE DUCT: Measures 9.0 mm. Mild diffuse dilatation and there are several small common bile duct stones. PANCREAS: The pancreas is normal in size and echotexture. There are enlarged peripancreatic lymph nodes measuring 2.0 and 1.5 cm. RIGHT KIDNEY: Measures 10.7cm. Normal echogenicity. No calculus, mass, or hydronephrosis. LEFT KIDNEY: Measures 9.5cm. Normal echogenicity. No calculus, mass, or hydronephrosis. SPLEEN: Normal in size and contour. No mass. AORTA: No aneurysmal dilatation. IVC: Unremarkable. OTHER FINDINGS: None. IMPRESSION: 1. Findings are concerning for acute calculus cholecystitis. 2. Multiple stones in a dilated common bile duct. 3. Enlarged peripancreatic lymph nodes. 4. Mild hepatomegaly.
[2017-12-09] MEDS ORDERED: DOBUTamine 500mg/250ml D5W 500 MG/250 ML BAG IV PRN (10:44)
[2017-12-09] MEDS ORDERED: Indomethacin 50 MG Suppository PR ONE (10:52)
--- NOTE | 2017-12-09 10:55 | CP.PCM.CON ---
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 Patient states that approximately 3 weeks ago she developed Shingles under her left breast extending to the flank and back. She was treated by her PCP but notes that she continued to suffer with myalgias and generalized malaise following resolution of rash. In the days prior to admission she developed chills and rigors with decreased appetite. As symptoms worsened and patient became more drowsy, less arousable at home, her called EMS to bring her to our facility. On admission, patient was noted to be in AFib RVR, started on cardizem and given PO Digoxin with subsequent resolution of rapid rate, now AFib at ~80bmp. She was noted to have leukocytosis and elevated LFTs with subsequent U/S and CT A/P revealing CBD dilation and choledocolithiasis, all suspicious for acute cholangitis. Patient has been admitted to ICU and is currently on Vancomycin and Merrem. PMHx: See HPI PSHx: Transverse colectomy with ostomy formation and reversal, B/L hip replacement FHx: Discussed with patient and denies any pertinent FHx Social: Denies any tobacco, EtOH or illicit drug use Endo: Colonoscopy 11/06 - Diverticulosis and internal hemorrhoids Review of Systems - Constitutional Constitutional: Chills, Malaise. absent: Anorexia, Fever - EENT Eyes: absent: Change in Vision Nose/Mouth/Throat: absent: Sore Throat - Cardiovascular Cardiovascular: absent: Chest Pain, Dyspnea, Palpitations - Respiratory Respiratory: absent: Cough, Dyspnea, Excessive Mucous Production - Gastrointestinal Gastrointestinal: absent: Abdominal Pain, Belching, Bloating, Constipation, Cramping, Diarrhea, Dyspepsia, Dysphagia, Melena, Nausea, Vomiting - Genitourinary Genitourinary: absent: Dysuria, Urinary Frequency, Urinary Urgency - Musculoskeletal Musculoskeletal: absent: Back Pain, Neck Pain - Integumentary Integumentary: absent: New Lesions, Rash - Neurological Neurological: absent: Dizziness, Numbness, Focal Weakness - Psychiatric Psychiatric: absent: Anxiety, Depression - Endocrine Endocrine: absent: Polydipsia, Polyphagia, Polyuria - Hematologic/Lymphatic Hematologic: absent: Easy Bleeding, Easy Bruising, Lymphadenopathy Past Patient History - Infectious Disease Hx of Infectious Diseases: None - Tetanus Immunizations Tetanus Immunization: Unknown - Past Social History Smoking Status: Never Smoked - CARDIAC Hx Cardiac Disorders: Yes (Afib) Hx Hypertension: Yes - PULMONARY Hx Chronic Obstructive Pulmonary Disease (COPD): No - NEUROLOGICAL HX Cerebrovascular Accident: Yes (3 yrs ago) - HEENT Hx HEENT Problems: Yes (eyeglasses) Hx Cataracts: No Hx Difficulty Chewing: No Hx Epistaxis: No Hx Glaucoma: No Hx Macular Degeneration: No - RENAL Hx Chronic Kidney Disease: No Hx Dialysis: No Hx Kidney Stones: No Hx Neurogenic Bladder: No Hx Renal (Kidney) Cancer: No - ENDOCRINE/METABOLIC Hx Diabetes Mellitus Type 2: Yes - HEMATOLOGICAL/ONCOLOGICAL Hx Blood Disorders: Yes Hx Anemia: Yes (BLOOD TRANSFUSION) Hx Cancer: No Hx Chemotherapy: No Hx Cirrhosis: No Hx Hemophilia: No Hx Sickle Cell Disease: No Hx Unexplained Bleeding: No - INTEGUMENTARY Hx Dermatological Problems: No Other/Comment: abd surgical dresing and binder with qball intact - MUSCULOSKELETAL/RHEUMATOLOGICAL Hx Arthritis: Yes - GASTROINTESTINAL Hx Gastrointestinal Disorders: Yes (colostomy reversal 12/22/16) - GENITOURINARY/GYNECOLOGICAL Hx Reproductive Disorders: No - PSYCHIATRIC Hx Emotional Abuse: No Hx Physical Abuse: No Hx Substance Use: No - SURGICAL HISTORY Hx Orthopedic Surgery: Yes (b/l hip replacement) Other/Comment: gi lap colostomy closure today 12/21/16, colostomy, colecytomy - ANESTHESIA Hx Anesthesia Reactions: No Hx Malignant Hyperthermia: No Meds Allergies/Adverse Reactions: Allergies Allergy/AdvReac Type Severity Reaction Status Date / Time No Known Allergies Allergy Verified 12/25/16 12:05 - Medications Medications: Current Medications Famotidine (Pepcid) 20 mg IVP DAILY COLIN Sodium Chloride (Sodium Chloride 0.9%) 1,000 mls @ 100 mls/hr IV .Q10H COLIN Last Admin: 12/09/17 02:25 Dose: 100 mls/hr Vancomycin HCl (Vancomycin 1gm) 1 gm in 250 mls @ 167 mls/hr IVPB Q12H COLIN PRN Reason: Protocol Last Admin: 12/09/17 08:48 Dose: 167 mls/hr Meropenem (Merrem Iv 1 Gm Premix) 50 mls @ 100 mls/hr IVPB Q8 COLIN PRN Reason: Protocol Stop: 12/18/17 07:31 Last Admin: 12/09/17 08:44 Dose: 100 mls/hr NOREPINEPHRINE BIT/0.9 % NACL (Levophed 4 Mg/ 250 Ml Ns Premixed) 4 mg in 250 mls @ 15 mls/hr IV .[id number] PRN; Protocol; 4 MCG/MIN PRN Reason: TITRATE PER MD ORDER Dobutamine HCl/Dextrose (Dobutamine/Dextrose 5% 500mg/250ml) 500 mg in 250 mls @ 3.837 mls/hr IV .Q24H PRN; Protocol; 2 MCG/KG/MIN PRN Reason: TITRATE PER PROTOCOL Insulin Human Regular (Humulin R Low) 0 units SC ACHS COLIN PRN Reason: Protocol Last Admin: 12/09/17 08:58 Dose: 2 units Physical Exam - Constitutional Appears: Toxic, No Acute Distress - Eye Exam Eye Exam: EOMI, PERRL - ENT Exam ENT Exam: Mucous Membranes Moist - Respiratory Exam Respiratory Exam: Clear to Auscultation Bilateral. absent: Rales, Rhonchi, Wheezes - Cardiovascular Exam Cardiovascular Exam: Irregular Rhythm, +S1, +S2 Additional comments: regular rate - GI/Abdominal Exam GI & Abdominal Exam: Normal Bowel Sounds, Soft. absent: Distended, Firm, Guarding, Organomegaly, Rigid, Tenderness - Extremities Exam Extremities exam: Positive for: normal inspection. Negative for: pedal edema - Neurological Exam Neurological exam: Alert, Oriented x3 - Psychiatric Exam Psychiatric exam: Normal Affect, Normal Mood - Skin Skin Exam: Dry, Warm Results - Vital Signs Recent Vital Signs: Last Vital Signs Temp 98.6 F 12/09/17 04:00 Pulse 103 H 12/09/17 06:00 Resp 34 H 12/09/17 06:00 BP 95/57 L 12/09/17 06:00 Pulse Ox 99 12/09/17 05:50 - Labs Result Diagrams: 12/09/17 05:40 12/09/17 05:40 Labs: Laboratory Results - last 24 hr 12/09/17 12/09/17 12/09/17 02:35 04:45 04:55 WBC RBC Hgb Hct MCV MCH MCHC RDW Plt Count MPV Gran % Lymph % (Auto) [place] % (Auto) Eos % (Auto) Baso % (Auto) Gran # Lymph # [place] # Eos # Baso # Neutrophils % (Manual) Band Neutrophils % Lymphocytes % (Manual) Monocytes % (Manual) Platelet Evaluation Large Platelets Giant Platelets PT 34.6 H INR 2.94 H Sodium Potassium Chloride Carbon Dioxide Anion Gap BUN Creatinine Est GFR ( Amer) Est GFR (Non-Af Amer) Random Glucose Calcium Iron TIBC % Saturation Total Bilirubin AST ALT Alkaline Phosphatase Lactate Dehydrogenase Total Creatine Kinase Troponin I Total Protein Albumin Globulin Albumin/Globulin Ratio Triglycerides Cholesterol LDL Cholesterol Direct HDL Cholesterol Influenza Typ A,B (EIA) Negative for flu a/b Blood Type A POSITIVE Antibody Screen Negative BBK History Checked Patient has bt 12/09/17 12/09/17 12/09/17 04:55 04:55 04:55 WBC RBC Hgb Hct MCV MCH MCHC RDW Plt Count MPV Gran % Lymph % (Auto) [place] % (Auto) Eos % (Auto) Baso % (Auto) Gran # Lymph # [place] # Eos # Baso # Neutrophils % (Manual) Band Neutrophils % Lymphocytes % (Manual) Monocytes % (Manual) Platelet Evaluation Large Platelets Giant Platelets PT INR Sodium Potassium Chloride Carbon Dioxide Anion Gap BUN Creatinine Est GFR ( Amer) Est GFR (Non-Af Amer) Random Glucose Calcium Iron 10 L TIBC 334 % Saturation 3 L Total Bilirubin AST ALT Alkaline Phosphatase Lactate Dehydrogenase 674 Total Creatine Kinase 206 Troponin I 0.11 D Total Protein Albumin Globulin Albumin/Globulin Ratio Triglycerides 163 H Cholesterol 70 L LDL Cholesterol Direct < 30 HDL Cholesterol 20 L Influenza Typ A,B (EIA) Blood Type Antibody Screen BBK History Checked 12/09/17 12/09/17 05:40 05:40 WBC 38.3 H* D RBC 4.11 Hgb 9.9 L Hct 31.6 L MCV 76.9 L MCH 24.1 L MCHC 31.3 RDW 19.4 H Plt Count 251 MPV 11.5 H Gran % 88.4 H Lymph % (Auto) 6.1 L [place] % (Auto) 5.4 Eos % (Auto) 0.0 L Baso % (Auto) 0.1 Gran # 33.88 H Lymph # 2.3 [place] # 2.1 H Eos # 0.0 Baso # 0.03 Neutrophils % (Manual) 71 H Band Neutrophils % 18 H* Lymphocytes % (Manual) 8 L Monocytes % (Manual) 3 Platelet Evaluation Normal Large Platelets Present Giant Platelets Present PT INR Sodium 140 Potassium 4.4 Chloride 104 Carbon Dioxide 24 Anion Gap 17 BUN 32 H Creatinine 1.3 H Est GFR ( Amer) 47 Est GFR (Non-Af Amer) 39 Random Glucose 163 H Calcium 8.5 Iron TIBC % Saturation Total Bilirubin 3.7 H AST 182 H ALT 334 H Alkaline Phosphatase 478 H D Lactate Dehydrogenase Total Creatine Kinase Troponin I Total Protein 6.1 Albumin 3.1 Globulin 3.1 Albumin/Globulin Ratio 1.0 L Triglycerides Cholesterol LDL Cholesterol Direct HDL Cholesterol Influenza Typ A,B (EIA) Blood Type Antibody Screen BBK History Checked Assessment & Plan - Assessment and Plan (Free Text) Assessment: Patient is an 82yo female with PMHx significant for AFib on Coumadin, HTN, DMT2 , dyslipidemia, chronic anemia, prior CVA without any residual deficits, prior transverse colon perforation 2/2 fishbone ingestion requiring transverse colectomy who presented to the ED, brought in by ambulance, for altered mentation and generalized malaise. Patient states that approximately 3 weeks ago she developed Shingles under her left breast extending to the flank and back. -Sepsis 2/2 acute cholangitis -Choledocolithiasis -AFib, coumadin held since admission -Chronic anemia Plan: -Agree with broad spectrum antibiotics: merrem/Vanco -Awaiting blood, urine cultures -Rate controlled AFib at present - off cardizem gtt, continue therapy as ordered -Hold anticoagulation - s/p 2 units FFP, 2 more ordered, INR downtrending -Plan for ERCP with biliary stent placement today -Patient will ultimately benefit from cholecystectomy, discussed with surgical consult -Proteinuria/hematuria noted on U/A which may warrant further investigation by primary service - Date & Time Date: 12/09/17 Time: 11:06 <Stephon Rasmussen - Last Filed: 12/09/17 17:34> Meds - Medications Medications: Current Medications Famotidine (Pepcid) 20 mg IVP DAILY COLIN Last Admin: 12/09/17 11:20 Dose: 20 mg Meropenem (Merrem Iv 1 Gm Premix) 50 mls @ 100 mls/hr IVPB Q8 COLIN PRN Reason: Protocol Stop: 12/18/17 07:31 Last Admin: 12/09/17 16:43 Dose: 100 mls/hr NOREPINEPHRINE BIT/0.9 % NACL (Levophed 4 Mg/ 250 Ml Ns Premixed) 4 mg in 250 mls @ 15 mls/hr IV .[id number] PRN; Protocol; 4 MCG/MIN PRN Reason: TITRATE PER MD ORDER Dobutamine HCl/Dextrose (Dobutamine/Dextrose 5% 500mg/250ml) 500 mg in 250 mls @ 3.837 mls/hr IV .Q24H PRN; Protocol; 2 MCG/KG/MIN PRN Reason: TITRATE PER PROTOCOL Last Admin: 12/09/17 11:00 Dose: 2 mcg/kg/min, 3.837 mls/hr Sodium Chloride (Sodium Chloride 0.9%) 1,000 mls @ 150 mls/hr IV .[id number] [facility], [facility] Last Admin: 12/09/17 13:43 Dose: 150 mls/hr Insulin Human Regular (Humulin R Low) 0 units SC ACHS COLIN PRN Reason: Protocol Last Admin: 12/09/17 16:42 Dose: 1 units Results - Vital Signs Recent Vital Signs: Last Vital Signs Temp 97.8 F 12/09/17 14:02 Pulse 84 12/09/17 14:02 Resp 16 12/09/17 14:02 BP 97/58 L 12/09/17 14:02 Pulse Ox 99 12/09/17 14:02 - Labs Result Diagrams: 12/09/17 17:07 12/09/17 17:07 Labs: Laboratory Results - last 24 hr 12/09/17 12/09/17 12/09/17 02:35 04:45 04:55 WBC RBC Hgb Hct MCV MCH MCHC RDW Plt Count MPV Gran % Lymph % (Auto) [place] % (Auto) Eos % (Auto) Baso % (Auto) Gran # Lymph # [place] # Eos # Baso # Neutrophils % (Manual) Band Neutrophils % Lymphocytes % (Manual) Monocytes % (Manual) Platelet Evaluation Large Platelets Giant Platelets PT 34.6 H INR 2.94 H pO2 VBG pH VBG pCO2 VBG HCO3 VBG Total CO2 VBG O2 Sat (Calc) VBG Base Excess VBG Potassium Glucose Lactate FiO2 Sodium Potassium Chloride Carbon Dioxide Anion Gap BUN Creatinine Est GFR ( Amer) Est GFR (Non-Af Amer) POC Glucose (mg/dL) Random Glucose Calcium Iron TIBC % Saturation Ferritin Total Bilirubin AST ALT Alkaline Phosphatase Lactate Dehydrogenase Total Creatine Kinase CK-MB (CK-2) CK-MB (CK-2) % Troponin I Total Protein Albumin Globulin Albumin/Globulin Ratio Triglycerides Cholesterol LDL Cholesterol Direct HDL Cholesterol Venous Blood Potassium Hepatitis A IgM Ab Hep Bs Antigen Hep B Core IgM Ab Hepatitis C Antibody Influenza Typ A,B (EIA) Negative for flu a/b Blood Type A POSITIVE Antibody Screen Negative BBK History Checked Patient has bt 12/09/17 12/09/17 12/09/17 04:55 04:55 04:55 WBC RBC Hgb Hct MCV MCH MCHC RDW Plt Count MPV Gran % Lymph % (Auto) [place] % (Auto) Eos % (Auto) Baso % (Auto) Gran # Lymph # [place] # Eos # Baso # Neutrophils % (Manual) Band Neutrophils % Lymphocytes % (Manual) Monocytes % (Manual) Platelet Evaluation Large Platelets Giant Platelets PT INR pO2 VBG pH VBG pCO2 VBG HCO3 VBG Total CO2 VBG O2 Sat (Calc) VBG Base Excess VBG Potassium Glucose Lactate FiO2 Sodium Potassium Chloride Carbon Dioxide Anion Gap BUN Creatinine Est GFR ( Amer) Est GFR (Non-Af Amer) POC Glucose (mg/dL) Random Glucose Calcium Iron 10 L TIBC 334 % Saturation 3 L Ferritin 49.3 Total Bilirubin AST ALT Alkaline Phosphatase Lactate Dehydrogenase 674 Total Creatine Kinase 206 CK-MB (CK-2) CK-MB (CK-2) % Troponin I 0.11 D Total Protein Albumin Globulin Albumin/Globulin Ratio Triglycerides 163 H Cholesterol 70 L LDL Cholesterol Direct < 30 HDL Cholesterol 20 L Venous Blood Potassium Hepatitis A IgM Ab Hep Bs Antigen Hep B Core IgM Ab Hepatitis C Antibody Influenza Typ A,B (EIA) Blood Type Antibody Screen BBK History Checked 12/09/17 12/09/17 12/09/17 05:40 05:40 06:21 WBC 38.3 H* D RBC 4.11 Hgb 9.9 L Hct 31.6 L MCV 76.9 L MCH 24.1 L MCHC 31.3 RDW 19.4 H Plt Count 251 MPV 11.5 H Gran % 88.4 H Lymph % (Auto) 6.1 L [place] % (Auto) 5.4 Eos % (Auto) 0.0 L Baso % (Auto) 0.1 Gran # 33.88 H Lymph # 2.3 [place] # 2.1 H Eos # 0.0 Baso # 0.03 Neutrophils % (Manual) 71 H Band Neutrophils % 18 H* Lymphocytes % (Manual) 8 L Monocytes % (Manual) 3 Platelet Evaluation Normal Large Platelets Present Giant Platelets Present PT INR pO2 VBG pH VBG pCO2 VBG HCO3 VBG Total CO2 VBG O2 Sat (Calc) VBG Base Excess VBG Potassium Glucose Lactate FiO2 Sodium 140 Potassium 4.4 Chloride 104 Carbon Dioxide 24 Anion Gap 17 BUN 32 H Creatinine 1.3 H Est GFR ( Amer) 47 Est GFR (Non-Af Amer) 39 POC Glucose (mg/dL) Random Glucose 163 H Calcium 8.5 Iron TIBC % Saturation Ferritin Total Bilirubin 3.7 H AST 182 H ALT 334 H Alkaline Phosphatase 478 H D Lactate Dehydrogenase Total Creatine Kinase CK-MB (CK-2) CK-MB (CK-2) % Troponin I Total Protein 6.1 Albumin 3.1 Globulin 3.1 Albumin/Globulin Ratio 1.0 L Triglycerides Cholesterol LDL Cholesterol Direct HDL Cholesterol Venous Blood Potassium Hepatitis A IgM Ab Negative Hep Bs Antigen Negative Hep B Core IgM Ab Negative Hepatitis C Antibody Negative Influenza Typ A,B (EIA) Blood Type Antibody Screen BBK History Checked 12/09/17 12/09/17 12/09/17 08:46 11:01 12:40 WBC RBC Hgb Hct MCV MCH MCHC RDW Plt Count MPV Gran % Lymph % (Auto) [place] % (Auto) Eos % (Auto) Baso % (Auto) Gran # Lymph # [place] # Eos # Baso # Neutrophils % (Manual) Band Neutrophils % Lymphocytes % (Manual) Monocytes % (Manual) Platelet Evaluation Large Platelets Giant Platelets PT INR pO2 VBG pH VBG pCO2 VBG HCO3 VBG Total CO2 VBG O2 Sat (Calc) VBG Base Excess VBG Potassium Glucose Lactate FiO2 Sodium Potassium Chloride Carbon Dioxide Anion Gap BUN Creatinine Est GFR ( Amer) Est GFR (Non-Af Amer) POC Glucose (mg/dL) 228 H 222 H Random Glucose Calcium Iron TIBC % Saturation Ferritin Total Bilirubin AST ALT Alkaline Phosphatase Lactate Dehydrogenase 682 Total Creatine Kinase 232 H CK-MB (CK-2) 2.7 CK-MB (CK-2) % Cancelled Troponin I 0.09 Total Protein Albumin Globulin Albumin/Globulin Ratio Triglycerides Cholesterol LDL Cholesterol Direct HDL Cholesterol Venous Blood Potassium Hepatitis A IgM Ab Hep Bs Antigen Hep B Core IgM Ab Hepatitis C Antibody Influenza Typ A,B (EIA) Blood Type Antibody Screen BBK History Checked 12/09/17 12/09/17 12/09/17 12:40 13:32 16:19 WBC RBC Hgb Hct MCV MCH MCHC RDW Plt Count MPV Gran % Lymph % (Auto) [place] % (Auto) Eos % (Auto) Baso % (Auto) Gran # Lymph # [place] # Eos # Baso # Neutrophils % (Manual) Band Neutrophils % Lymphocytes % (Manual) Monocytes % (Manual) Platelet Evaluation Large Platelets Giant Platelets PT 28.0 H INR 2.41 H pO2 179 H VBG pH 7.39 VBG pCO2 37.0 L VBG HCO3 22.4 VBG Total CO2 23.5 VBG O2 Sat (Calc) 99.3 H VBG Base Excess -2.2 L VBG Potassium 3.9 Glucose 255 H Lactate 2.5 H FiO2 21.0 Sodium 141.0 Potassium Chloride 110.0 H Carbon Dioxide Anion Gap BUN Creatinine Est GFR ( Amer) Est GFR (Non-Af Amer) POC Glucose (mg/dL) 197 H Random Glucose Calcium Iron TIBC % Saturation Ferritin Total Bilirubin AST ALT Alkaline Phosphatase Lactate Dehydrogenase Total Creatine Kinase CK-MB (CK-2) CK-MB (CK-2) % Troponin I Total Protein Albumin Globulin Albumin/Globulin Ratio Triglycerides Cholesterol LDL Cholesterol Direct HDL Cholesterol Venous Blood Potassium 3.9 Hepatitis A IgM Ab Hep Bs Antigen Hep B Core IgM Ab Hepatitis C Antibody Influenza Typ A,B (EIA) Blood Type Antibody Screen BBK History Checked 12/09/17 12/09/17 12/09/17 17:07 17:07 17:07 WBC 36.2 H* RBC 3.51 Hgb 8.5 L Hct 26.9 L MCV 76.6 L MCH 24.2 L MCHC 31.6 RDW 19.5 H Plt Count 165 MPV 11.4 H Gran % 86.0 H Lymph % (Auto) 5.5 L [place] % (Auto) 8.4 H Eos % (Auto) 0.0 L Baso % (Auto) 0.1 Gran # 31.14 H Lymph # 2.0 [place] # 3.1 H Eos # 0.0 Baso # 0.04 Neutrophils % (Manual) Band Neutrophils % Lymphocytes % (Manual) Monocytes % (Manual) Platelet Evaluation Large Platelets Giant Platelets PT INR pO2 120 H VBG pH 7.40 VBG pCO2 39.0 L VBG HCO3 24.2 VBG Total CO2 25.4 VBG O2 Sat (Calc) 99.5 H VBG Base Excess -0.5 L VBG Potassium 3.9 Glucose 212 H Lactate 1.7 FiO2 21.0 Sodium 143.0 139 Potassium 3.9 Chloride 111.0 H 106 Carbon Dioxide 24 Anion Gap 13 BUN 39 H Creatinine 1.1 Est GFR ( Amer) 57 Est GFR (Non-Af Amer) 47 POC Glucose (mg/dL) Random Glucose 205 H Calcium 7.7 L Iron TIBC % Saturation Ferritin Total Bilirubin 3.0 H AST 114 H D ALT 247 H Alkaline Phosphatase 355 H D Lactate Dehydrogenase Total Creatine Kinase CK-MB (CK-2) CK-MB (CK-2) % Troponin I Total Protein 6.1 Albumin 2.9 L Globulin 3.2 Albumin/Globulin Ratio 0.9 L Triglycerides Cholesterol LDL Cholesterol Direct HDL Cholesterol Venous Blood Potassium 3.9 Hepatitis A IgM Ab Hep Bs Antigen Hep B Core IgM Ab Hepatitis C Antibody Influenza Typ A,B (EIA) Blood Type Antibody Screen BBK History Checked Attending/Attestation - Attestation I have personally seen and examined this patient.: Yes I have fully participated in the care of the patient.: Yes I have reviewed all pertinent clinical information: Yes Notes (Text): 12/09/17 12:32 82 year old female with h/o HTN, DM, HLD, Afib on coumadin, h/o CVA a/w acute cholangitis. 1. Acute cholangitis 2. Choledocholithiasis 3. Sepsis Plan: -plan for urgent ercp with stent placement -recommend broad spectrum iv antibiotics -resuscitation per ICU -agree with FFP preop -d/w patient and family
--- NOTE | 2017-12-09 11:03 | CP.PCM.CON ---
History of Present Illness - History of Present Illness History of Present Illness: General Surgery Consult Note for Dr. 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 She was brought to the hospital via EMS and admitted to the ICU with septic shock likely secondary to cholangitis. CT scan of the A/P revealed multiple stones in dilated common bile duct while abdominal US showed a 1.7 cm stone in the neck of the gall bladder with diffuse gall bladder wall thickening with pericholecystic fluid. Patient admits to having the shingles affecting the left trunk for which she took acyclovir. Otherwise, denies abdominal pain, blood in stool, vomiting, chest pain, or headache. PMH: hypertension, atrial fibrillation, CVA, diabetes PSH: transverse colostomy reversal, bilateral hip replacement Family History : noncontributory Social History: denies ETOH use, tobacco use, illicit drug use Medications: Please see medication reconciliation PMD: Dr. Lockett in [place] Review of Systems - Review of Systems All systems: reviewed and no additional remarkable complaints except Review of Systems: as per hpi Past Patient History - Infectious Disease Hx of Infectious Diseases: None - Tetanus Immunizations Tetanus Immunization: Unknown - Past Social History Smoking Status: Never Smoked - CARDIAC Hx Cardiac Disorders: Yes (Afib) Hx Hypertension: Yes - PULMONARY Hx Chronic Obstructive Pulmonary Disease (COPD): No - NEUROLOGICAL HX Cerebrovascular Accident: Yes (3 yrs ago) - HEENT Hx HEENT Problems: Yes (eyeglasses) Hx Cataracts: No Hx Difficulty Chewing: No Hx Epistaxis: No Hx Glaucoma: No Hx Macular Degeneration: No - RENAL Hx Chronic Kidney Disease: No Hx Dialysis: No Hx Kidney Stones: No Hx Neurogenic Bladder: No Hx Renal (Kidney) Cancer: No - ENDOCRINE/METABOLIC Hx Diabetes Mellitus Type 2: Yes - HEMATOLOGICAL/ONCOLOGICAL Hx Blood Disorders: Yes Hx Anemia: Yes (BLOOD TRANSFUSION) Hx Cancer: No Hx Chemotherapy: No Hx Cirrhosis: No Hx Hemophilia: No Hx Sickle Cell Disease: No Hx Unexplained Bleeding: No - INTEGUMENTARY Hx Dermatological Problems: No Other/Comment: abd surgical dresing and binder with qball intact - MUSCULOSKELETAL/RHEUMATOLOGICAL Hx Arthritis: Yes - GASTROINTESTINAL Hx Gastrointestinal Disorders: Yes (colostomy reversal 12/22/16) - GENITOURINARY/GYNECOLOGICAL Hx Reproductive Disorders: No - PSYCHIATRIC Hx Emotional Abuse: No Hx Physical Abuse: No Hx Substance Use: No - SURGICAL HISTORY Hx Orthopedic Surgery: Yes (b/l hip replacement) Other/Comment: gi lap colostomy closure today 12/21/16, colostomy, colecytomy - ANESTHESIA Hx Anesthesia Reactions: No Hx Malignant Hyperthermia: No Meds Allergies/Adverse Reactions: Allergies Allergy/AdvReac Type Severity Reaction Status Date / Time No Known Allergies Allergy Verified 12/25/16 12:05 - Medications Medications: Current Medications Famotidine (Pepcid) 20 mg IVP DAILY COLIN Sodium Chloride (Sodium Chloride 0.9%) 1,000 mls @ 100 mls/hr IV .Q10H COLIN Last Admin: 12/09/17 02:25 Dose: 100 mls/hr Vancomycin HCl (Vancomycin 1gm) 1 gm in 250 mls @ 167 mls/hr IVPB Q12H COLIN PRN Reason: Protocol Last Admin: 12/09/17 08:48 Dose: 167 mls/hr Meropenem (Merrem Iv 1 Gm Premix) 50 mls @ 100 mls/hr IVPB Q8 COLIN PRN Reason: Protocol Stop: 12/18/17 07:31 Last Admin: 12/09/17 08:44 Dose: 100 mls/hr NOREPINEPHRINE BIT/0.9 % NACL (Levophed 4 Mg/ 250 Ml Ns Premixed) 4 mg in 250 mls @ 15 mls/hr IV .[id number] PRN; Protocol; 4 MCG/MIN PRN Reason: TITRATE PER MD ORDER Dobutamine HCl/Dextrose (Dobutamine/Dextrose 5% 500mg/250ml) 500 mg in 250 mls @ 3.837 mls/hr IV .Q24H PRN; Protocol; 2 MCG/KG/MIN PRN Reason: TITRATE PER PROTOCOL Insulin Human Regular (Humulin R Low) 0 units SC ACHS COLIN PRN Reason: Protocol Last Admin: 12/09/17 08:58 Dose: 2 units Physical Exam - Constitutional Appears: In Acute Distress - Head Exam Head Exam: ATRAUMATIC, NORMOCEPHALIC - Eye Exam Eye Exam: EOMI, Normal appearance - ENT Exam ENT Exam: Mucous Membranes Dry - Neck Exam Neck exam: Positive for: Normal Inspection - Respiratory Exam Respiratory Exam: NORMAL BREATHING PATTERN. absent: Accessory Muscle Use Additional comments: RR of 24 - Cardiovascular Exam Cardiovascular Exam: Irregular Rhythm, +S1, +S2 - GI/Abdominal Exam Additional comments: soft, non-tender, well-healed midline incision. - Extremities Exam Extremities exam: Positive for: normal inspection - Back Exam Back exam: absent: CVA tenderness (L), CVA tenderness (R) - Neurological Exam Neurological exam: Alert, CN II-XII Intact, Oriented x3 - Psychiatric Exam Psychiatric exam: Normal Affect, Normal Mood - Skin Skin Exam: Dry, Intact, Normal Color, Warm Results - Vital Signs Recent Vital Signs: Last Vital Signs Temp 98.6 F 12/09/17 04:00 Pulse 103 H 12/09/17 06:00 Resp 34 H 12/09/17 06:00 BP 95/57 L 12/09/17 06:00 Pulse Ox 99 12/09/17 05:50 - Labs Result Diagrams: 12/09/17 05:40 12/09/17 05:40 Labs: Laboratory Results - last 24 hr 12/09/17 12/09/17 12/09/17 02:35 04:45 04:55 WBC RBC Hgb Hct MCV MCH MCHC RDW Plt Count MPV Gran % Lymph % (Auto) Bracken % (Auto) Eos % (Auto) Baso % (Auto) Gran # Lymph # Bracken # Eos # Baso # Neutrophils % (Manual) Band Neutrophils % Lymphocytes % (Manual) Monocytes % (Manual) Platelet Evaluation Large Platelets Giant Platelets PT 34.6 H INR 2.94 H Sodium Potassium Chloride Carbon Dioxide Anion Gap BUN Creatinine Est GFR ( Amer) Est GFR (Non-Af Amer) Random Glucose Calcium Iron TIBC % Saturation Total Bilirubin AST ALT Alkaline Phosphatase Lactate Dehydrogenase Total Creatine Kinase Troponin I Total Protein Albumin Globulin Albumin/Globulin Ratio Triglycerides Cholesterol LDL Cholesterol Direct HDL Cholesterol Influenza Typ A,B (EIA) Negative for flu a/b Blood Type A POSITIVE Antibody Screen Negative BBK History Checked Patient has bt 12/09/17 12/09/17 12/09/17 04:55 04:55 04:55 WBC RBC Hgb Hct MCV MCH MCHC RDW Plt Count MPV Gran % Lymph % (Auto) Bracken % (Auto) Eos % (Auto) Baso % (Auto) Gran # Lymph # Bracken # Eos # Baso # Neutrophils % (Manual) Band Neutrophils % Lymphocytes % (Manual) Monocytes % (Manual) Platelet Evaluation Large Platelets Giant Platelets PT INR Sodium Potassium Chloride Carbon Dioxide Anion Gap BUN Creatinine Est GFR ( Amer) Est GFR (Non-Af Amer) Random Glucose Calcium Iron 10 L TIBC 334 % Saturation 3 L Total Bilirubin AST ALT Alkaline Phosphatase Lactate Dehydrogenase 674 Total Creatine Kinase 206 Troponin I 0.11 D Total Protein Albumin Globulin Albumin/Globulin Ratio Triglycerides 163 H Cholesterol 70 L LDL Cholesterol Direct < 30 HDL Cholesterol 20 L Influenza Typ A,B (EIA) Blood Type Antibody Screen BBK History Checked 12/09/17 12/09/17 05:40 05:40 WBC 38.3 H* D RBC 4.11 Hgb 9.9 L Hct 31.6 L MCV 76.9 L MCH 24.1 L MCHC 31.3 RDW 19.4 H Plt Count 251 MPV 11.5 H Gran % 88.4 H Lymph % (Auto) 6.1 L Bracken % (Auto) 5.4 Eos % (Auto) 0.0 L Baso % (Auto) 0.1 Gran # 33.88 H Lymph # 2.3 Bracken # 2.1 H Eos # 0.0 Baso # 0.03 Neutrophils % (Manual) 71 H Band Neutrophils % 18 H* Lymphocytes % (Manual) 8 L Monocytes % (Manual) 3 Platelet Evaluation Normal Large Platelets Present Giant Platelets Present PT INR Sodium 140 Potassium 4.4 Chloride 104 Carbon Dioxide 24 Anion Gap 17 BUN 32 H Creatinine 1.3 H Est GFR ( Amer) 47 Est GFR (Non-Af Amer) 39 Random Glucose 163 H Calcium 8.5 Iron TIBC % Saturation Total Bilirubin 3.7 H AST 182 H ALT 334 H Alkaline Phosphatase 478 H D Lactate Dehydrogenase Total Creatine Kinase Troponin I Total Protein 6.1 Albumin 3.1 Globulin 3.1 Albumin/Globulin Ratio 1.0 L Triglycerides Cholesterol LDL Cholesterol Direct HDL Cholesterol Influenza Typ A,B (EIA) Blood Type Antibody Screen BBK History Checked Assessment & Plan - Assessment and Plan (Free Text) Assessment: 82 year old female with a past medical history of atrial fibrillation, DM II, 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 Plan: ERCP by GI and cholecystectomy on this admission with medical management per primary team. - Date & Time Date: 12/09/17 Time: 13:27
--- NOTE | 2017-12-09 11:41 | CARD ---
APPROVED REPORT EKG Measurement Heart [id number] <Conclusion> Atrial fibrillation with rapid ventricular response ST & T wave abnormality c/w ischemia
[2017-12-09] MEDS ORDERED: Sodium Chloride 0.9% 1,000 ML IV SCH (12:30)
[2017-12-09 12:55] LABS: VENOUS BLOOD GAS BASE EXCESS -2.2 mmol/L (0.0-2.0); VENOUS BLOOD GAS PO2 179 mm/Hg (30-55); VENOUS BLOOD PH 7.39 (7.32-7.43)
[2017-12-09 13:04] LABS: HEPATITIS B SURFACE AG NEGATIVE (NEGATIVE)
[2017-12-09 13:14] LABS: HEPATITIS A IGM NEGATIVE (NEGATIVE)
[2017-12-09 13:16] LABS: TROPONIN I 0.09 ng/mL
[2017-12-09 13:18] LABS: CK-MB 2.7 ng/mL (0.0-3.6)
[2017-12-09] MEDS ORDERED: Phytonadione 10 MG in Sodium Chloride 0.9% 50 ML IV ONE (13:21)
[2017-12-09 13:22] LABS: HEPATITIS C ANTIBODY Negative (NEGATIVE)
[2017-12-09 13:44] LABS: INR 2.41 (0.93-1.08)
[2017-12-09 14:02] LABS: HEPATITIS B CORE AB Negative (NEGATIVE)
[2017-12-09 14:08] LABS: FERRITIN 49.3 ng/mL
[2017-12-09] MEDS ORDERED: Propofol 10 mg/ml Inj (20 ML) ONE (14:23)
--- NOTE | 2017-12-09 14:33 | CON ---
DATE: 12/09/2017 INDICATION: Atrial fibrillation with rapid ventricular response. HISTORY OF PRESENT ILLNESS: This is an 82-year-old woman admitted yesterday through the emergency room, where she presented with a history of lethargy, weakness, and fever. She was found to have atrial fibrillation with rapid ventricular response as well as hypotension and the appearance of septic shock. She was admitted to the Intensive Care Unit, given IV fluids, pressors, Cardizem IV drip and today, is resting in her ICU bed with atrial fibrillation and a moderate ventricular response. Her pressure has improved. She is on phenylephrine drip. This morning, there is no chest pain or shortness of breath. There is no abdominal pain, nausea, vomiting, diarrhea, constipation, or melena. There is no orthopnea, PND, syncope, palpitations, rigor, sweats, cough, or hemoptysis. PAST MEDICAL HISTORY: Notable for hypertension, diabetes, hyperlipidemia, stroke, anemia, cerebrovascular disease, colectomy with reversal, bilateral total hip replacements. No rheumatic fever, myocardial infarction, angina, or gout. MEDICATIONS: At the time of admission include Zantac, Amaryl, verapamil, Cerefolin, warfarin, digoxin, valsartan, Lipitor, and Neurontin. ALLERGIES: THERE ARE NO KNOWN MEDICATION ALLERGIES. SOCIAL HISTORY: She did not smoke. She did not drink. She lives at home. She is ambulatory. FAMILY HISTORY: Noncontributory. REVIEW OF SYSTEMS: A 10-point review of systems otherwise unremarkable except as noted above. PHYSICAL EXAMINATION: GENERAL: She is a well-developed elderly woman, lying in bed, in the Intensive Care Unit, in no acute distress. VITAL SIGNS: Notable for atrial fibrillation at 100-110 beats per minute. Last temperature 98.6, prior 101.9. Blood pressure currently 101/45, respirations 19-34, O2 sat 95-99 on nasal cannula and room air. HEENT: Reveals no neck vein distension, thyromegaly, or carotid bruits. Mucous membranes are moist. Conjunctivae pink. NECK: Supple. LUNGS: Lungs henderson, scattered rhonchi. HEART: Reveals an irregular rhythm. Normal first and second heart sounds. ABDOMEN: Soft. Bowel sounds present. No mass, organomegaly, tenderness, rebound, or guarding. EXTREMITIES: Reveals no cyanosis, clubbing, or edema. NEUROLOGIC: Awake, alert, and oriented. PSYCHIATRIC: Normal as to mood and affect. SKIN: Warm and dry. Evidence of prior shingles infection under left breast. LABORATORY AND IMAGING: Initial EKG revealed atrial fibrillation with rapid ventricular response at 162 beats per minute. There were ST-T wave changes. A portable chest x-ray revealed mild cardiomegaly and pulmonary venous congestion. Abdominal and pelvis CT scan is noted, it shows gallstones, described as multiple with dilatation of the common bile duct, there is small bowel dilatation, etc. White count 38,300, hemoglobin 9.9, hematocrit 31.6, platelet count 251,000. PT 34.6, INR 2.94. Blood gases are noted. Electrolytes normal this morning. BUN 32, creatinine 1.3, blood sugar 163. Elevated LFT's are noted. Troponin 0.06 and 0.11. CK 122 and 206. Total cholesterol is 70. LDL is less than 30. Urinalysis is noted. Digoxin is 0.8. Negative for influenza. IMPRESSION AND PLAN: Ry Liao is an 82-year-old woman admitted with a septic picture, possibly due to acute cholecystitis. She had atrial fibrillation with rapid ventricular response. She is improved with fluids, pressors, IV Cardizem. There is no evidence of acute myocardial infarction. She is in the Intensive Care Unit. She has been cultured. She is getting antibiotics. She will have GI and surgical consultations. Vitamin K is being administered. She is on Pepcid, meropenem. I will continue digoxin IV as well as IV Cardizem. I will review her old records. A HIDA scan is pending. I will repeat her EKG this morning. We should check stool for occult blood. Monitor I's and O's and LFTs. We will follow INR. Warfarin is on hold for now. I will follow along with you. I will make additional recommendations based on her clinical course. Gabriele Loo MD [facility]
[2017-12-09] MEDS ORDERED: Etomidate 20 mg/10ml Inj IV ONE (14:39)
[2017-12-09] MEDS ORDERED: Lidocaine 2% Inj (20ml) ONE (14:39)
--- NOTE | 2017-12-09 14:53 | CARD ---
APPROVED REPORT EKG Measurement Heart [id number] <Conclusion> Atrial fibrillation Low voltage QRS Small q waves 3,F NSSTW changes
--- NOTE | 2017-12-09 15:42 | HP ---
HISTORY OF PRESENT ILLNESS: This is an 82-year-old female who is coming in to the hospital because of weakness. The patient states that she has past medical history of atrial fibrillation, diabetes, CVA, hypertension, and started having generalized weakness. The patient was having fevers. Her heart rate was elevated. She denies any abdominal pain. No back pain, no dysuria, no frequency, no nocturia. No cough, no congestion. The patient was found to be hypotensive and started on IV fluids. She was sent to the ICU for further management. She states she just feels fatigue and weakness. REVIEW OF SYMPTOMS: All other review of symptoms are within normal limits except as mentioned. ALLERGIES: NO KNOWN DRUG ALLERGIES. PAST MEDICAL HISTORY: Atrial fibrillation, on Coumadin; dyslipidemia; diabetes type 2; and pneumonia. MEDICATIONS: Have been reviewed on the [facility]. FAMILY HISTORY: Noncontributory. SOCIAL HISTORY: No smoking, drinking alcohol. PAST SURGICAL HISTORY: Bilateral hip replacements, transverse colectomy with colostomy reversal. PHYSICAL EXAMINATION VITAL SIGNS: T-max is 101.9, heart rate is in the 100s, blood pressure 95/57, and respirations 20. Height is 5 feet 5 inches. Weight is 141 pounds. BMI is 23. GENERAL: The patient lying in bed, uncomfortable, and in no acute distress. HEENT: Atraumatic and normocephalic. Anicteric sclerae. Moist mucosa. Geddes conjunctivae. No oral lesions. NECK: No JVD, anterior and posterior adenopathy, thyromegaly, or bruits. CARDIOVASCULAR: S1 and S2 regular. No murmur, rubs, or gallop. LUNGS: Clear to auscultation bilaterally. No wheezes, rales, or rhonchi. ABDOMEN: Bowel sounds are positive. Soft, nontender and nondistended. No hepatosplenomegaly. No rebound and no guarding. EXTREMITIES: No cyanosis, clubbing, or edema. NEUROLOGIC: No facial asymmetry. Tongue is midline. No uvula deviation. Power is 5/5 upper extremity and lower extremity. Sensation intact in upper extremity and lower extremity. PSYCHIATRIC: She is awake, alert and oriented x3. No anxiety or depression. She has normal affect. GENITOURINARY: No CVA tenderness. VASCULAR: 2+ pulses in the carotid pulses and pedal pulses. SKIN: No erythema or nodules SPINE: Shows normal curvature. LABORATORY DATA: White count of 18.8, repeat is 38; hemoglobin is 10.1. INR is 2.9. ABG does show pH of 7.46, pCO2 is 35. Chemistry showed a potassium of 2.7. AST and ALT is 209 and 363. Alkaline phosphatase is 608. Troponin is 0.06, repeat is 0.11. Blood is moderate, bilirubin is moderate. Toxicology shows a digoxin level of 0.8. Serology shows influenza is negative. Abdominal CAT scan done shows multiple stones in the common bile duct associated with dilation of the common bile duct. There are 5 stones that are seen, all of which are about 1 cm. The small bowel is dilated. Chest x-ray done shows mild cardiomegaly and pulmonary venous congestion, no active disease. ASSESSMENT: 1. Septic shock. 2. Diabetes type 2. 3. Atrial fibrillation. 4. Dyslipidemia. 5. Hypokalemia. 6. Transaminitis. 7. Common bile duct stones. 8. Common bile duct dilation measuring 1.5 cm. 9. Hypomagnesemia. 10. Hypophosphatemia. PLAN: The patient is admitted to the ICU. She is critically ill. I did speak to the patient's at the bedside. The patient has a procalcitonin level that has been ordered. Insulin coverage has been ordered. The patient is going to need electrolyte replacement. The patient was given multiple boluses of IV fluids. The patient has been started on . The patient is going to be followed by Dr. Loo, Dr. Caldwell from Infectious Disease. I will also get surgical evaluation for the patient's gallstones. The patient remains on IV fluids and normal saline. We will repeat the patient's blood work tomorrow. The patient's prognosis is guarded. Edmond Nixon MD
--- NOTE | 2017-12-09 17:04 | RAD ---
PROCEDURE: ERCP HISTORY: ? CBD OBST / STENT INSERTION COMPARISON: TECHNIQUE: Fluoroscopy was provided in the endoscopy suite. 26.1 seconds of fluoro time were used. Five images were submitted FINDINGS: The study shows passage of a wire and balloon catheter into the common duct and placement of a common duct stent IMPRESSION: As above
[2017-12-09 17:10] LABS: VENOUS BLOOD GAS BASE EXCESS -0.5 mmol/L (0.0-2.0); VENOUS BLOOD GAS PO2 120 mm/Hg (30-55)
[2017-12-09 17:16] LABS: BASO # 0.04 K/mm3 (0.0-2.0); BASO % 0.1 % (0.0-3.0); GRAN # 31.14 (1.4-6.5); HEMOGLOBIN 8.5 g/dL (12.0-16.0); LYMPH % 5.5 % (22.0-35.0); MEAN CELL VOLUME 76.6 fl (80.0-105.0); MEAN CORPUSCULAR HEMOGLOBIN 24.2 pg (25.0-35.0); MEAN CORPUSCULAR HGB CONC 31.6 g/dl (31.0-37.0); MEAN PLATELET VOLUME 11.4 fl (7.0-11.0); MONO # 3.1 (0.1-0.6); MONO % 8.4 % (1.0-6.0); RBC 3.51 10^6/uL (3.5-6.1); RED CELL DISTRIBUTION WIDTH 19.5 % (11.5-14.5)
[2017-12-09 17:21] LABS: WHITE BLOOD COUNT 36.2 10^3/ul (4.5-11.0)
[2017-12-09 17:26] LABS: ALB/GLOB RATIO 0.9 (1.1-1.8); ALBUMIN 2.9 g/dL (3.0-4.8); CALCIUM 7.7 mg/dL (8.4-10.5)
[2017-12-09] MEDS: Lactated Ringer's 1,000 ML IV SCH (17:53)
--- NOTE | 2017-12-09 21:42 | CON ---
DATE: 12/09/2017 HISTORY OF PRESENT ILLNESS: I saw Ms. Liao this morning. She is an 82-year-old female with past medical history of increased lipids, diabetes, atrial fibrillation, CVA, transverse colostomy, hip replacement, here with complaints of lethargy, generalized weakness, high fever and chills. The patient denies hematemesis or rectal bleeding. At the bedside, the patient denies any severe degree of abdominal pain. The patient has been seen multiple times in the endoscopy unit, most recently in October when a colonoscopy was done. PHYSICAL EXAMINATION: VITAL SIGNS: I reviewed this patient's vital signs. HEENT: Noncontributory. LUNGS: Decreased breath sounds at the bases. HEART: Irregular rhythm. ABDOMEN: Soft, protuberant, mild tenderness in the epigastric area. LABORATORY DATA: Reviewed this patient's laboratory data. WBC significant for 38,000, H and H of 9.9 and 31.6 with platelet count of 251. INR 2.94. Chemistry significant for creatinine 1.3, glucose 163, AST and ALT ratio 180/334, bilirubin is 3.7, alkaline phosphatase 478. Urine reveals protein and glucose spillage, moderate urine blood, bilirubin. IMAGING STUDIES: I reviewed this patient's imaging studies including abdomen and pelvic CT which is significant for multiple stones visualized in the gallbladder. There is a significant gallstone in the gallbladder. There is evidence of pericholecystic fluid. There is also multiple dilated small bowel loops. I was at the bedside, at that time the patient had an abdominal ultrasound, pericholecystic fluid was noted with multiple gallstones in the common bile duct distal third, not seen in the hilum. One large gallstone noted in the gallbladder. OVERALL ASSESSMENT: This is an 82-year-old female admitted with sepsis, possible cholelithiasis, multiple stones in the common bile duct. The patient needs an ERCP which I discussed with the resident in the ICU. Note that the ERCP will have to be performed by another business management consultant. Decision for cholecystectomy will have to be at the discretion of rn surgical and the surgeon, possibly Dr. Buckley. I reviewed this patient's orders which are significant for antibiotics in the form of aztreonam and vancomycin, meropenem as well. This appears to be adequate. Curly Garnett DO, WONG
--- NOTE | 2017-12-09 23:38 | CON ---
DATE: 12/09/2017 HISTORY OF PRESENT ILLNESS: This is an 82-year-old lady with history of atrial fibrillation, diabetes, hypertension, CVA, who presented to the emergency room via EMS for generalized weakness and lethargy. Later on, she was found to have left-sided abdominal pain and subsequent workup revealed choledocholithiasis with dilatation of the CBD, as well as dilated gallbladder with gallbladder stones present. There was a pericholecystic fluid present and wall of the gallbladder was thickened. GI consult as well as Surgical consult was called and the patient was scheduled for ERCP at a later time. PAST MEDICAL HISTORY: Hypertension, atrial fibrillation, CVA, diabetes. PAST SURGICAL HISTORY: Transverse colostomy reversal, bilateral hip replacement. FAMILY HISTORY: Noncontributory. SOCIAL HISTORY: No alcohol or illicit drug abuse. No tobacco smoking. REVIEW OF SYSTEMS: Review of 12-organ system other than mentioned in history of present illness is negative. The patient does not have nausea, vomiting, diarrhea, or constipation. CURRENT MEDICATIONS: Dobutamine, regular insulin sliding scale low protocol, meropenem, Pepcid, norepinephrine drip (currently is off), vitamin K was given once, normal saline at 150 mL per hour, vancomycin. PHYSICAL EXAMINATION: VITAL SIGNS: Heart rate 89; blood pressure 92/52; respiratory rate 30, 34; oxygen saturation 99% on room air. ENT: Head and neck atraumatic. LUNGS: Clear to auscultation bilaterally. HEART: Irregular rate and rhythm, S1 and S2 distant. ABDOMEN: Soft, nontender and nondistended. MUSCULOSKELETAL: No C/C/E. NEURO: The patient moves all extremities spontaneously. SKIN: Moist. PSYCH: The patient is alert and oriented, not in visible distress despite breathing slightly fast. She does not use accessory muscles. The patient is following commands. LABS: WBC 38.3, hemoglobin 9.9, platelet count 251. Sodium 140, potassium 4.4, chloride 104, carbon dioxide 24, BUN 32, creatinine 1.3, glucose 163, AST 182, ALT 334, total bilirubin 3.7. Troponin x2 negative. (Of note, the patient has echocardiogram performed about a year ago which showed moderately suppressed left ventricular ejection fraction, echocardiogram for today is ordered). VBG today showed pH of 7.44 and lactic acid 4.6 down from 5.3. Influenza negative. Digoxin level was 0.8. Urine is negative for nitrites and has trace of leukocyte esterase in it. Abdominal ultrasound revealed findings concerning for acute calculous cholecystitis, multiple stones and dilated common bile duct, enlarged peripancreatic lymph node, mild hepatomegaly, gallbladder is distended, mild diffuse gallbladder wall thickening and pericholecystic fluid, 1.7-cm gallstone in the region of the neck. Abdominal and pelvic CAT scan showed multiple stones in the common bile duct associated with dilatation of the common bile duct, five stones are seen, all of which measured about 1 cm. Gallstones and mild gallbladder dilatation also noted. Small bowel dilatation. This could be due to either small bowel obstruction or an ileus, transition point is not definitely seen, recommended clinical correlation by radiologist reading CAT scan. ASSESSMENT AND PLAN: This is an 82-year-old lady with severe sepsis/septic shock secondary to acute cholecystitis with ascending cholangitis in the setting of choledocholithiasis, complicated acute kidney injury, transaminitis and bilirubinemia. The patient is on broad-spectrum antibiotics. Septic workup was obtained including blood, urine culture, and procalcitonin. The patient is on vancomycin and meropenem. ID Service is following her as well. The patient is scheduled for ERCP later today in the afternoon. I spoke with Dr. Buckley (Surgery) and the patient may go to OR for cholecystectomy depending on results of the ERCP. Fluid resuscitation is ongoing. The patient received vitamin K and 6 units of FFP to reverse iatrogenic coagulopathy (the patient is on Coumadin for stroke prevention in the setting of atrial fibrillation). If she is still hypotensive after fluid resuscitation, vasopressor support will be provided. We will continue to maintain euvolemia, euglycemia, and mean arterial pressure more than 65 for additional nephro-protective effect. We will maintain blood glucose within 140 to 180 range according to NICE-SUGAR trial. The patient will remain n.p.o. for the procedure. The patient does have a history of congestive heart failure with substantial/moderate left ventricular systolic dysfunction and was started on dobutamine. We will continue to trend lactic acid, pH and procalcitonin. We will continue with deep venous thrombosis and gastrointestinal prophylaxis. ccm time 40 min Fernando Tran MD MTDD
[2017-12-10] MEDS: Lactated Ringer's 1,000 ML IV SCH (00:30)
--- NOTE | 2017-12-10 01:51 | CON ---
DATE: 12/09/2017 CHIEF COMPLAINT: Abdominal pain times several days. HISTORY OF PRESENT ILLNESS: This is an 82-year-old female who is known to me from previous admission with hypertension, atrial fibrillation, cerebrovascular accident, diabetes mellitus, history of bilateral hip surgery, history of coronary artery disease, high cholesterol, and urinary tract infection.. She had a colostomy and a reversal of colostomy with a fish bone foreign body perforating to the mucosal of the colon, who is admitted on this admission to Emergency Room complaining of abdominal pain and weakness with fevers and chills, and nausea. She denied any chest pain. No dysuria or frequency. No headaches or blurred vision. PAST MEDICAL HISTORY: Significant for cerebrovascular accident, hyperlipidemia, diabetes mellitus, atrial fibrillation, and a fish bone in her colon. PAST SURGICAL HISTORY: Significant for bilateral hip surgery and colostomy and reversal of colostomy. ALLERGIES: THE PATIENT HAS NO KNOWN ALLERGIES. MEDICATIONS: At home reveals the patient had been on Coumadin, Neurontin, digoxin, and Lipitor. PHYSICAL EXAMINATION: GENERAL: The patient is in bed, appears weak and chronically ill. VITAL SIGNS: With a temperature of 101.9, blood pressure is 90/60, was down to 77 and 68/48. The patient is on pressors, heart rate of 103, and respiratory rate of 34. HEENT: Examination of HEENT is unremarkable. NECK: Supple. LUNGS: Have decreased breath sounds. HEART: Exam has normal S1 and S2. ABDOMEN: Tenderness in the right upper quadrant. There is no rebound. There is no guarding. LABORATORY DATA: Laboratory examination reveals a white count of 18,800 and is up to 38,000 with 18% bandemia. Coagulation is noted. Chemistries reveals the patient's creatinine is 1.3, it was 1.0. The LFTs are elevated and alkaline phosphatase is 478. Hepatitis profile is negative and influenza is negative. Hepatitis B antigen is negative and hepatitis C is pending. Microbiology is pending. DIAGNOSTIC DATA: The patient had a CT scan which shows multiple stones in the common bile duct associated with dilatation of the common bile duct, five stones were seen measuring approximately 1 cm and gallbladder dilatation, common bile duct dilatation. Dr. Shannon Stoll note is reviewed. consultation is reviewed. ASSESSMENT AND PLAN: This is an 82-year-old female with history of hypertension, atrial fibrillation, coronary artery disease, cerebrovascular accident, high cholesterol, diabetes, and urinary tract infection admitted with fever and tachycardia, dyspnea, and 18% bandemia with hypotension requiring pressors with septic shock secondary to a dilated gallbladder and acute cholelithiasis and cholecystitis. The patient was empirically started on meropenem, pending surgical intervention and GI intervention. We will check on the davidson culture results and we will follow closely with you. Twan Forrest MD
[2017-12-10] MEDS: Meropenem IV 1 gm in NS 50 ML IVPB SCH ×3 (05:24→21:29)
[2017-12-10 07:06] LABS: BASO # 0.01 K/mm3 (0.0-2.0); EOS % 0.1 % (1.5-5.0); GRAN # 27.04 (1.4-6.5); GRAN % 91.2 % (50.0-68.0); HEMOGLOBIN 9.1 g/dL (12.0-16.0); LYMPH # 1.7 (1.2-3.4); LYMPH % 5.6 % (22.0-35.0); MEAN CELL VOLUME 76.9 fl (80.0-105.0); MEAN CORPUSCULAR HEMOGLOBIN 23.6 pg (25.0-35.0); MEAN CORPUSCULAR HGB CONC 30.6 g/dl (31.0-37.0); MONO # 0.9 (0.1-0.6); MONO % 3.1 % (1.0-6.0); PLATELET COUNT 169 10^3/uL (120.0-450.0); RBC 3.86 10^6/uL (3.5-6.1); RED CELL DISTRIBUTION WIDTH 19.7 % (11.5-14.5)
[2017-12-10 07:26] LABS: ALB/GLOB RATIO 0.9 (1.1-1.8); ALBUMIN 2.9 g/dL (3.0-4.8); MAGNESIUM 2.4 mg/dL (1.7-2.2)
[2017-12-10] MEDS: Insulin Reg-LOW-Coverage SC SCH ×4 (07:30→22:37)
--- NOTE | 2017-12-10 07:46 | CP.PCM.PN ---
Subjective - Date & Time of Evaluation Date of Evaluation: 12/10/17 Time of Evaluation: 07:00 - Subjective Subjective: Stable in ICU. No CP or SOB. S/P ERCP/biliary stent yesterday. Got FFP yesterday. V/S noted. AF, mod. VR. On dobutamine now PE: Lungs: clear Cor: irreg, sys murmur Abd.: soft Ext. no edema Neuro: alert I/O= 3737/800 Labs: K+= 3.5, Cr.= 1.1, CBC and INR pending BC x2 + GNR Objective - Vital Signs/Intake and Output Vital Signs (last 24 hours): Temp Pulse Resp BP Pulse Ox 97.4 F L 94 H 19 135/85 100 12/10/17 04:00 12/10/17 06:00 12/10/17 06:00 12/10/17 06:00 12/10/17 06:00 Intake and Output: 12/10/17 12/10/17 06:59 18:59 Intake Total 2045 Output Total 300 Balance 1745 - Medications Medications: Current Medications Famotidine (Pepcid) 20 mg IVP DAILY [facility] Last Admin: 12/09/17 11:20 Dose: 20 mg Meropenem (Merrem Iv 1 Gm Premix) 50 mls @ 100 mls/hr IVPB Q8 COLIN PRN Reason: Protocol Stop: 12/18/17 07:31 Last Admin: 12/10/17 05:24 Dose: 100 mls/hr NOREPINEPHRINE BIT/0.9 % NACL (Levophed 4 Mg/ 250 Ml Ns Premixed) 4 mg in 250 mls @ 15 mls/hr IV .[id number] PRN; Protocol; 4 MCG/MIN PRN Reason: TITRATE PER MD ORDER Dobutamine HCl/Dextrose (Dobutamine/Dextrose 5% 500mg/250ml) 500 mg in 250 mls @ 3.837 mls/hr IV .Q24H PRN; Protocol; 2 MCG/KG/MIN PRN Reason: TITRATE PER PROTOCOL Last Admin: 12/09/17 11:00 Dose: 2 mcg/kg/min, 3.837 mls/hr Lactated Ringer's (Lactated Ringer's) 1,000 mls @ 150 mls/hr IV .[id number] COLIN Last Admin: 12/10/17 00:30 Dose: 150 mls/hr Insulin Human Regular (Humulin R Low) 0 units SC ACHS COLIN PRN Reason: Protocol Last Admin: 12/09/17 22:04 Dose: Not Given - Labs Labs: 12/09/17 17:07 12/10/17 06:25 PT 28.0 SECONDS (9.4-12.5) H 12/09/17 13:32 INR 2.41 (0.93-1.08) H 12/09/17 13:32 APTT 34.0 Seconds (25.1-36.5) 12/08/17 21:30 Assessment and Plan - Assessment and Plan (Free Text) Assessment: Weak/Lethargy/Fever initially Acute cholecystitis with septic shock/s/p ERCP with biliary stent 12/09/17 Gall Stones AF with RVR HBP Diabetes HLD CVA Anemia CVD Paramjit. THR Plan: As per GI and surgery: Cholecystectomy planned Await AM labs. IV Heparin for AF while awaiting surgery Will check echo. Wean dobutamine off Digoxin 0.125 IV daily AB as per ID Will follow.
[2017-12-10 07:56] LABS: WHITE BLOOD COUNT 29.7 10^3/ul (4.5-11.0)
--- NOTE | 2017-12-10 08:06 | CP.CCUPN ---
<Angel Bermudez - Last Filed: 12/10/17 15:39> CCU Subjective - Physician Review Subjective (Free Text): Critical Care progress note- Dr. Tran Patient seen and examined at bedside this AM. pt s/p ERCP and stent placement. AAO x3. Answers questions in full sentences. currently HD stable, off pressors. Denies current, nausea, vomiting, diarrhea, chest pain, shortness of breath, nausea, vomiting, diarrhea. +OOB to chair, PT, IS. CCU Objective - Vital Signs / Intake & Output Vital Signs (Last 4 hours): Vital Signs Pulse Resp BP Pulse Ox 12/10/17 06:00 94 H 19 135/85 100 12/10/17 05:00 89 18 125/65 99 Intake and Output (Last 8hrs): Intake & Output 12/09/17 12/10/17 12/10/17 22:59 06:59 14:59 Intake Total 1692 2045 Output Total 500 300 Balance 1192 1745 Intake: IV 1672 2045 Left Hand 10 45 Right Antecubital 1662 2000 Oral 20 Output: Urine 500 300 Urethral (Donahue) 300 Urine, Voided 500 Other: # Bowel Movements 2 - Physical Exam Head: Positive for: Atraumatic, Normocephalic Pupils: Positive for: PERRL Extroacular Muscles: Positive for: EOMI Conjunctiva: Positive for: Normal Mouth: Positive for: Moist Mucous Membranes Neck: Positive for: Normal Range of Motion Respiratory/Chest: Positive for: Clear to Auscultation, Good Air Exchange. Negative for: Respiratory Distress, Accessory Muscle Use Cardiovascular: Positive for: Irregular Rhythm (Irregular, regular). Negative for: Murmurs, Tachycardic, Bradycardic Abdomen: Positive for: Normal Bowel Sounds, Hernias (ventral hernia), Scars ( Midline incision scar, PEG tube scar). Negative for: Tenderness, Distention, Peritoneal Signs Back: Positive for: Normal Inspection Upper Extremity: Positive for: Normal Inspection. Negative for: Cyanosis, Edema Lower Extremity: Positive for: Normal Inspection. Negative for: Edema Neurological: Positive for: GCS=15, CN II-XII Intact Skin: Positive for: Warm, Dry, Normal Color. Negative for: Rashes Psychiatric: Positive for: Oriented x 3 - Medications Active Medications: Active Medications Generic Name Dose Route Start Last Admin Trade Name Freq PRN Reason Stop Dose Admin Digoxin 0.125 mg 12/10/17 14:00 Lanoxin IV 1400 COLIN Famotidine 20 mg 12/09/17 10:00 12/09/17 11:20 Pepcid IVP 20 mg DAILY COLIN Administration Meropenem 50 mls @ 100 mls/hr 12/09/17 07:30 12/10/17 05:24 Merrem Iv 1 Gm Premix IVPB 12/18/17 07:31 100 mls/hr Q8 COLIN Administration Protocol Lactated Ringer's 1,000 mls @ 150 mls/hr 12/09/17 17:45 12/10/17 00:30 Lactated Ringer's IV 150 mls/hr .[id number] COLIN Administration Calcium Gluconate 1,000 mg/ 110 mls @ 110 mls/hr 12/10/17 07:46 Sodium Chloride IVPB 12/10/17 08:45 ONCE ONE Potassium Chloride 10 meq in 100 mls @ 50 mls/hr 12/10/17 07:46 Potassium Chloride 10 Meq/100 Ml IVPB 12/10/17 09:45 ONCE ONE Insulin Human Regular 0 units 12/09/17 07:30 12/09/17 22:04 Humulin R Low SC Not Given ACHS [facility] Protocol - Patient Studies Lab Studies: Lab Studies 12/10/17 12/10/17 12/10/17 Range/Units 07:29 06:25 06:25 WBC 29.7 H* (4.5-11.0) 10^3/ul RBC 3.86 (3.5-6.1) 10^6/uL Hgb 9.1 L (12.0-16.0) g/dL Hct 29.7 L (36.0-48.0) % MCV 76.9 L (80.0-105.0) fl MCH 23.6 L (25.0-35.0) pg MCHC 30.6 L (31.0-37.0) g/dl RDW 19.7 H (11.5-14.5) % Plt Count 169 (120.0-450.0) 10^3/uL MPV (7.0-11.0) fl Gran % 91.2 H (50.0-68.0) % Lymph % (Auto) 5.6 L (22.0-35.0) % Boyd % (Auto) 3.1 (1.0-6.0) % Eos % (Auto) 0.1 L (1.5-5.0) % Baso % (Auto) 0.0 (0.0-3.0) % Gran # 27.04 H (1.4-6.5) Lymph # 1.7 (1.2-3.4) Boyd # 0.9 H (0.1-0.6) Eos # 0.0 (0.0-0.7) Baso # 0.01 (0.0-2.0) K/mm3 Neutrophils % (Manual) (50.0-70.0) % Band Neutrophils % (0-2) % Lymphocytes % (Manual) (22.0-35.0) % Monocytes % (Manual) (1.0-6.0) % Platelet Evaluation (NORMAL) Large Platelets Giant Platelets PT (9.4-12.5) SECONDS INR (0.93-1.08) pO2 (30-55) mm/Hg VBG pH (7.32-7.43) VBG pCO2 (40-60) VBG HCO3 (21-28) mmol/l VBG Total CO2 (22-28) mmol.L VBG O2 Sat (Calc) (40-65) % VBG Base Excess (0.0-2.0) mmol/L VBG Potassium (3.6-5.2) mmol/L Glucose (65-105) mg/dl Lactate (0.7-2.1) mmol/L FiO2 % Sodium 144 (132-148) mmol/L Potassium 3.5 L (3.6-5.0) mmol/L Chloride 109 H (98-107) mmol/L Carbon Dioxide 25 (21-33) mmol/L Anion Gap 13 (10-20) BUN 45 H (7-21) mg/dL Creatinine 1.1 (0.7-1.2) mg/dl Est GFR ( Amer) 57 Est GFR (Non-Af Amer) 47 POC Glucose (mg/dL) 86 (65-110) mg/dL Random Glucose 86 (70-110) mg/dL Calcium 8.0 L (8.4-10.5) mg/dL Phosphorus 3.9 (2.5-4.5) mg/dL Magnesium 2.4 H (1.7-2.2) mg/dL Iron (45-180) ug/dL TIBC (265-497) ug/dL % Saturation (20-55) % Ferritin ng/mL Total Bilirubin 2.1 H (0.2-1.3) mg/dL AST 101 H (14-36) U/L ALT 223 H (7-56) U/L Alkaline Phosphatase 386 H (38-126) U/L Lactate Dehydrogenase (333-699) U/L Total Creatine Kinase (35-230) U/L CK-MB (CK-2) (0.0-3.6) ng/mL CK-MB (CK-2) % Troponin I ng/mL Total Protein 6.3 (5.8-8.3) g/dL Albumin 2.9 L (3.0-4.8) g/dL Globulin 3.4 gm/dL Albumin/Globulin Ratio 0.9 L (1.1-1.8) Venous Blood Potassium (3.6-5.2) mmol/L Hepatitis A IgM Ab (NEGATIVE) Hep Bs Antigen (NEGATIVE) Hep B Core IgM Ab (NEGATIVE) Hepatitis C Antibody (NEGATIVE) 12/09/17 12/09/17 12/09/17 Range/Units 21:47 17:07 17:07 WBC 36.2 H* (4.5-11.0) 10^3/ul RBC 3.51 (3.5-6.1) 10^6/uL Hgb 8.5 L (12.0-16.0) g/dL Hct 26.9 L (36.0-48.0) % MCV 76.6 L (80.0-105.0) fl MCH 24.2 L (25.0-35.0) pg MCHC 31.6 (31.0-37.0) g/dl RDW 19.5 H (11.5-14.5) % Plt Count 165 (120.0-450.0) 10^3/uL MPV 11.4 H (7.0-11.0) fl Gran % 86.0 H (50.0-68.0) % Lymph % (Auto) 5.5 L (22.0-35.0) % Boyd % (Auto) 8.4 H (1.0-6.0) % Eos % (Auto) 0.0 L (1.5-5.0) % Baso % (Auto) 0.1 (0.0-3.0) % Gran # 31.14 H (1.4-6.5) Lymph # 2.0 (1.2-3.4) Boyd # 3.1 H (0.1-0.6) Eos # 0.0 (0.0-0.7) Baso # 0.04 (0.0-2.0) K/mm3 Neutrophils % (Manual) (50.0-70.0) % Band Neutrophils % (0-2) % Lymphocytes % (Manual) (22.0-35.0) % Monocytes % (Manual) (1.0-6.0) % Platelet Evaluation (NORMAL) Large Platelets Giant Platelets PT (9.4-12.5) SECONDS INR (0.93-1.08) pO2 (30-55) mm/Hg VBG pH (7.32-7.43) VBG pCO2 (40-60) VBG HCO3 (21-28) mmol/l VBG Total CO2 (22-28) mmol.L VBG O2 Sat (Calc) (40-65) % VBG Base Excess (0.0-2.0) mmol/L VBG Potassium (3.6-5.2) mmol/L Glucose (65-105) mg/dl Lactate (0.7-2.1) mmol/L FiO2 % Sodium 139 (132-148) mmol/L Potassium 3.9 (3.6-5.0) mmol/L Chloride 106 (98-107) mmol/L Carbon Dioxide 24 (21-33) mmol/L Anion Gap 13 (10-20) BUN 39 H (7-21) mg/dL Creatinine 1.1 (0.7-1.2) mg/dl Est GFR ( Amer) 57 Est GFR (Non-Af Amer) 47 POC Glucose (mg/dL) 140 H (65-110) mg/dL Random Glucose 205 H (70-110) mg/dL Calcium 7.7 L (8.4-10.5) mg/dL Phosphorus (2.5-4.5) mg/dL Magnesium (1.7-2.2) mg/dL Iron (45-180) ug/dL TIBC (265-497) ug/dL % Saturation (20-55) % Ferritin ng/mL Total Bilirubin 3.0 H (0.2-1.3) mg/dL AST 114 H D (14-36) U/L ALT 247 H (7-56) U/L Alkaline Phosphatase 355 H D (38-126) U/L Lactate Dehydrogenase (333-699) U/L Total Creatine Kinase (35-230) U/L CK-MB (CK-2) (0.0-3.6) ng/mL CK-MB (CK-2) % Troponin I ng/mL Total Protein 6.1 (5.8-8.3) g/dL Albumin 2.9 L (3.0-4.8) g/dL Globulin 3.2 gm/dL Albumin/Globulin Ratio 0.9 L (1.1-1.8) Venous Blood Potassium (3.6-5.2) mmol/L Hepatitis A IgM Ab (NEGATIVE) Hep Bs Antigen (NEGATIVE) Hep B Core IgM Ab (NEGATIVE) Hepatitis C Antibody (NEGATIVE) 12/09/17 12/09/17 12/09/17 Range/Units 17:07 16:19 13:32 WBC (4.5-11.0) 10^3/ul RBC (3.5-6.1) 10^6/uL Hgb (12.0-16.0) g/dL Hct (36.0-48.0) % MCV (80.0-105.0) fl MCH (25.0-35.0) pg MCHC (31.0-37.0) g/dl RDW (11.5-14.5) % Plt Count (120.0-450.0) 10^3/uL MPV (7.0-11.0) fl Gran % (50.0-68.0) % Lymph % (Auto) (22.0-35.0) % Boyd % (Auto) (1.0-6.0) % Eos % (Auto) (1.5-5.0) % Baso % (Auto) (0.0-3.0) % Gran # (1.4-6.5) Lymph # (1.2-3.4) Boyd # (0.1-0.6) Eos # (0.0-0.7) Baso # (0.0-2.0) K/mm3 Neutrophils % (Manual) (50.0-70.0) % Band Neutrophils % (0-2) % Lymphocytes % (Manual) (22.0-35.0) % Monocytes % (Manual) (1.0-6.0) % Platelet Evaluation (NORMAL) Large Platelets Giant Platelets PT 28.0 H (9.4-12.5) SECONDS INR 2.41 H (0.93-1.08) pO2 120 H (30-55) mm/Hg VBG pH 7.40 (7.32-7.43) VBG pCO2 39.0 L (40-60) VBG HCO3 24.2 (21-28) mmol/l VBG Total CO2 25.4 (22-28) mmol.L VBG O2 Sat (Calc) 99.5 H (40-65) % VBG Base Excess -0.5 L (0.0-2.0) mmol/L VBG Potassium 3.9 (3.6-5.2) mmol/L Glucose 212 H (65-105) mg/dl Lactate 1.7 (0.7-2.1) mmol/L FiO2 21.0 % Sodium 143.0 (132-148) mmol/L Potassium (3.6-5.0) mmol/L Chloride 111.0 H (98-107) mmol/L Carbon Dioxide (21-33) mmol/L Anion Gap (10-20) BUN (7-21) mg/dL Creatinine (0.7-1.2) mg/dl Est GFR ( Amer) Est GFR (Non-Af Amer) POC Glucose (mg/dL) 197 H (65-110) mg/dL Random Glucose (70-110) mg/dL Calcium (8.4-10.5) mg/dL Phosphorus (2.5-4.5) mg/dL Magnesium (1.7-2.2) mg/dL Iron (45-180) ug/dL TIBC (265-497) ug/dL % Saturation (20-55) % Ferritin ng/mL Total Bilirubin (0.2-1.3) mg/dL AST (14-36) U/L ALT (7-56) U/L Alkaline Phosphatase (38-126) U/L Lactate Dehydrogenase (333-699) U/L Total Creatine Kinase (35-230) U/L CK-MB (CK-2) (0.0-3.6) ng/mL CK-MB (CK-2) % Troponin I ng/mL Total Protein (5.8-8.3) g/dL Albumin (3.0-4.8) g/dL Globulin gm/dL Albumin/Globulin Ratio (1.1-1.8) Venous Blood Potassium 3.9 (3.6-5.2) mmol/L Hepatitis A IgM Ab (NEGATIVE) Hep Bs Antigen (NEGATIVE) Hep B Core IgM Ab (NEGATIVE) Hepatitis C Antibody (NEGATIVE) 12/09/17 12/09/17 12/09/17 Range/Units 12:40 12:40 11:01 WBC (4.5-11.0) 10^3/ul RBC (3.5-6.1) 10^6/uL Hgb (12.0-16.0) g/dL Hct (36.0-48.0) % MCV (80.0-105.0) fl MCH (25.0-35.0) pg MCHC (31.0-37.0) g/dl RDW (11.5-14.5) % Plt Count (120.0-450.0) 10^3/uL MPV (7.0-11.0) fl Gran % (50.0-68.0) % Lymph % (Auto) (22.0-35.0) % Boyd % (Auto) (1.0-6.0) % Eos % (Auto) (1.5-5.0) % Baso % (Auto) (0.0-3.0) % Gran # (1.4-6.5) Lymph # (1.2-3.4) Boyd # (0.1-0.6) Eos # (0.0-0.7) Baso # (0.0-2.0) K/mm3 Neutrophils % (Manual) (50.0-70.0) % Band Neutrophils % (0-2) % Lymphocytes % (Manual) (22.0-35.0) % Monocytes % (Manual) (1.0-6.0) % Platelet Evaluation (NORMAL) Large Platelets Giant Platelets PT (9.4-12.5) SECONDS INR (0.93-1.08) pO2 179 H (30-55) mm/Hg VBG pH 7.39 (7.32-7.43) VBG pCO2 37.0 L (40-60) VBG HCO3 22.4 (21-28) mmol/l VBG Total CO2 23.5 (22-28) mmol.L VBG O2 Sat (Calc) 99.3 H (40-65) % VBG Base Excess -2.2 L (0.0-2.0) mmol/L VBG Potassium 3.9 (3.6-5.2) mmol/L Glucose 255 H (65-105) mg/dl Lactate 2.5 H (0.7-2.1) mmol/L FiO2 21.0 % Sodium 141.0 (132-148) mmol/L Potassium (3.6-5.0) mmol/L Chloride 110.0 H (98-107) mmol/L Carbon Dioxide (21-33) mmol/L Anion Gap (10-20) BUN (7-21) mg/dL Creatinine (0.7-1.2) mg/dl Est GFR ( Amer) Est GFR (Non-Af Amer) POC Glucose (mg/dL) 222 H (65-110) mg/dL Random Glucose (70-110) mg/dL Calcium (8.4-10.5) mg/dL Phosphorus (2.5-4.5) mg/dL Magnesium (1.7-2.2) mg/dL Iron (45-180) ug/dL TIBC (265-497) ug/dL % Saturation (20-55) % Ferritin ng/mL Total Bilirubin (0.2-1.3) mg/dL AST (14-36) U/L ALT (7-56) U/L Alkaline Phosphatase (38-126) U/L Lactate Dehydrogenase 682 (333-699) U/L Total Creatine Kinase 232 H (35-230) U/L CK-MB (CK-2) 2.7 (0.0-3.6) ng/mL CK-MB (CK-2) % Cancelled Troponin I 0.09 ng/mL Total Protein (5.8-8.3) g/dL Albumin (3.0-4.8) g/dL Globulin gm/dL Albumin/Globulin Ratio (1.1-1.8) Venous Blood Potassium 3.9 (3.6-5.2) mmol/L Hepatitis A IgM Ab (NEGATIVE) Hep Bs Antigen (NEGATIVE) Hep B Core IgM Ab (NEGATIVE) Hepatitis C Antibody (NEGATIVE) 12/09/17 12/09/17 12/09/17 Range/Units 08:46 06:21 05:40 WBC (4.5-11.0) 10^3/ul RBC (3.5-6.1) 10^6/uL Hgb (12.0-16.0) g/dL Hct (36.0-48.0) % MCV (80.0-105.0) fl MCH (25.0-35.0) pg MCHC (31.0-37.0) g/dl RDW (11.5-14.5) % Plt Count (120.0-450.0) 10^3/uL MPV (7.0-11.0) fl Gran % (50.0-68.0) % Lymph % (Auto) (22.0-35.0) % Boyd % (Auto) (1.0-6.0) % Eos % (Auto) (1.5-5.0) % Baso % (Auto) (0.0-3.0) % Gran # (1.4-6.5) Lymph # (1.2-3.4) Boyd # (0.1-0.6) Eos # (0.0-0.7) Baso # (0.0-2.0) K/mm3 Neutrophils % (Manual) (50.0-70.0) % Band Neutrophils % (0-2) % Lymphocytes % (Manual) (22.0-35.0) % Monocytes % (Manual) (1.0-6.0) % Platelet Evaluation (NORMAL) Large Platelets Giant Platelets PT (9.4-12.5) SECONDS INR (0.93-1.08) pO2 (30-55) mm/Hg VBG pH (7.32-7.43) VBG pCO2 (40-60) VBG HCO3 (21-28) mmol/l VBG Total CO2 (22-28) mmol.L VBG O2 Sat (Calc) (40-65) % VBG Base Excess (0.0-2.0) mmol/L VBG Potassium (3.6-5.2) mmol/L Glucose (65-105) mg/dl Lactate (0.7-2.1) mmol/L FiO2 % Sodium 140 (132-148) mmol/L Potassium 4.4 (3.6-5.0) mmol/L Chloride 104 (98-107) mmol/L Carbon Dioxide 24 (21-33) mmol/L Anion Gap 17 (10-20) BUN 32 H (7-21) mg/dL Creatinine 1.3 H (0.7-1.2) mg/dl Est GFR ( Amer) 47 Est GFR (Non-Af Amer) 39 POC Glucose (mg/dL) 228 H (65-110) mg/dL Random Glucose 163 H (70-110) mg/dL Calcium 8.5 (8.4-10.5) mg/dL Phosphorus (2.5-4.5) mg/dL Magnesium (1.7-2.2) mg/dL Iron (45-180) ug/dL TIBC (265-497) ug/dL % Saturation (20-55) % Ferritin ng/mL Total Bilirubin 3.7 H (0.2-1.3) mg/dL AST 182 H (14-36) U/L ALT 334 H (7-56) U/L Alkaline Phosphatase 478 H D (38-126) U/L Lactate Dehydrogenase (333-699) U/L Total Creatine Kinase (35-230) U/L CK-MB (CK-2) (0.0-3.6) ng/mL CK-MB (CK-2) % Troponin I ng/mL Total Protein 6.1 (5.8-8.3) g/dL Albumin 3.1 (3.0-4.8) g/dL Globulin 3.1 gm/dL Albumin/Globulin Ratio 1.0 L (1.1-1.8) Venous Blood Potassium (3.6-5.2) mmol/L Hepatitis A IgM Ab Negative (NEGATIVE) Hep Bs Antigen Negative (NEGATIVE) Hep B Core IgM Ab Negative (NEGATIVE) Hepatitis C Antibody Negative (NEGATIVE) 12/09/17 12/09/17 12/09/17 Range/Units 05:40 04:55 04:55 WBC 38.3 H* D (4.5-11.0) 10^3/ul RBC 4.11 (3.5-6.1) 10^6/uL Hgb 9.9 L (12.0-16.0) g/dL Hct 31.6 L (36.0-48.0) % MCV 76.9 L (80.0-105.0) fl MCH 24.1 L (25.0-35.0) pg MCHC 31.3 (31.0-37.0) g/dl RDW 19.4 H (11.5-14.5) % Plt Count 251 (120.0-450.0) 10^3/uL MPV 11.5 H (7.0-11.0) fl Gran % 88.4 H (50.0-68.0) % Lymph % (Auto) 6.1 L (22.0-35.0) % Boyd % (Auto) 5.4 (1.0-6.0) % Eos % (Auto) 0.0 L (1.5-5.0) % Baso % (Auto) 0.1 (0.0-3.0) % Gran # 33.88 H (1.4-6.5) Lymph # 2.3 (1.2-3.4) Boyd # 2.1 H (0.1-0.6) Eos # 0.0 (0.0-0.7) Baso # 0.03 (0.0-2.0) K/mm3 Neutrophils % (Manual) 71 H (50.0-70.0) % Band Neutrophils % 18 H* (0-2) % Lymphocytes % (Manual) 8 L (22.0-35.0) % Monocytes % (Manual) 3 (1.0-6.0) % Platelet Evaluation Normal (NORMAL) Large Platelets Present Giant Platelets Present PT (9.4-12.5) SECONDS INR (0.93-1.08) pO2 (30-55) mm/Hg VBG pH (7.32-7.43) VBG pCO2 (40-60) VBG HCO3 (21-28) mmol/l VBG Total CO2 (22-28) mmol.L VBG O2 Sat (Calc) (40-65) % VBG Base Excess (0.0-2.0) mmol/L VBG Potassium (3.6-5.2) mmol/L Glucose (65-105) mg/dl Lactate (0.7-2.1) mmol/L FiO2 % Sodium (132-148) mmol/L Potassium (3.6-5.0) mmol/L Chloride (98-107) mmol/L Carbon Dioxide (21-33) mmol/L Anion Gap (10-20) BUN (7-21) mg/dL Creatinine (0.7-1.2) mg/dl Est GFR ( Amer) Est GFR (Non-Af Amer) POC Glucose (mg/dL) (65-110) mg/dL Random Glucose (70-110) mg/dL Calcium (8.4-10.5) mg/dL Phosphorus (2.5-4.5) mg/dL Magnesium (1.7-2.2) mg/dL Iron 10 L (45-180) ug/dL TIBC 334 (265-497) ug/dL % Saturation 3 L (20-55) % Ferritin 49.3 ng/mL Total Bilirubin (0.2-1.3) mg/dL AST (14-36) U/L ALT (7-56) U/L Alkaline Phosphatase (38-126) U/L Lactate Dehydrogenase (333-699) U/L Total Creatine Kinase (35-230) U/L CK-MB (CK-2) (0.0-3.6) ng/mL CK-MB (CK-2) % Troponin I ng/mL Total Protein (5.8-8.3) g/dL Albumin (3.0-4.8) g/dL Globulin gm/dL Albumin/Globulin Ratio (1.1-1.8) Venous Blood Potassium (3.6-5.2) mmol/L Hepatitis A IgM Ab (NEGATIVE) Hep Bs Antigen (NEGATIVE) Hep B Core IgM Ab (NEGATIVE) Hepatitis C Antibody (NEGATIVE) Laboratory Results - last 24 hr 12/09/17 12/09/17 12/09/17 04:55 04:55 05:40 WBC 38.3 H* D RBC 4.11 Hgb 9.9 L Hct 31.6 L MCV 76.9 L MCH 24.1 L MCHC 31.3 RDW 19.4 H Plt Count 251 MPV 11.5 H Gran % 88.4 H Lymph % (Auto) 6.1 L Boyd % (Auto) 5.4 Eos % (Auto) 0.0 L Baso % (Auto) 0.1 Gran # 33.88 H Lymph # 2.3 Boyd # 2.1 H Eos # 0.0 Baso # 0.03 Neutrophils % (Manual) 71 H Band Neutrophils % 18 H* Lymphocytes % (Manual) 8 L Monocytes % (Manual) 3 Platelet Evaluation Normal Large Platelets Present Giant Platelets Present PT INR pO2 VBG pH VBG pCO2 VBG HCO3 VBG Total CO2 VBG O2 Sat (Calc) VBG Base Excess VBG Potassium Glucose Lactate FiO2 Sodium Potassium Chloride Carbon Dioxide Anion Gap BUN Creatinine Est GFR ( Amer) Est GFR (Non-Af Amer) POC Glucose (mg/dL) Random Glucose Calcium Phosphorus Magnesium Iron 10 L TIBC 334 % Saturation 3 L Ferritin 49.3 Total Bilirubin AST ALT Alkaline Phosphatase Lactate Dehydrogenase Total Creatine Kinase CK-MB (CK-2) CK-MB (CK-2) % Troponin I Total Protein Albumin Globulin Albumin/Globulin Ratio Venous Blood Potassium Hepatitis A IgM Ab Hep Bs Antigen Hep B Core IgM Ab Hepatitis C Antibody 12/09/17 12/09/17 12/09/17 05:40 06:21 08:46 WBC RBC Hgb Hct MCV MCH MCHC RDW Plt Count MPV Gran % Lymph % (Auto) Boyd % (Auto) Eos % (Auto) Baso % (Auto) Gran # Lymph # Boyd # Eos # Baso # Neutrophils % (Manual) Band Neutrophils % Lymphocytes % (Manual) Monocytes % (Manual) Platelet Evaluation Large Platelets Giant Platelets PT INR pO2 VBG pH VBG pCO2 VBG HCO3 VBG Total CO2 VBG O2 Sat (Calc) VBG Base Excess VBG Potassium Glucose Lactate FiO2 Sodium 140 Potassium 4.4 Chloride 104 Carbon Dioxide 24 Anion Gap 17 BUN 32 H Creatinine 1.3 H Est GFR ( Amer) 47 Est GFR (Non-Af Amer) 39 POC Glucose (mg/dL) 228 H Random Glucose 163 H Calcium 8.5 Phosphorus Magnesium Iron TIBC % Saturation Ferritin Total Bilirubin 3.7 H AST 182 H ALT 334 H Alkaline Phosphatase 478 H D Lactate Dehydrogenase Total Creatine Kinase CK-MB (CK-2) CK-MB (CK-2) % Troponin I Total Protein 6.1 Albumin 3.1 Globulin 3.1 Albumin/Globulin Ratio 1.0 L Venous Blood Potassium Hepatitis A IgM Ab Negative Hep Bs Antigen Negative Hep B Core IgM Ab Negative Hepatitis C Antibody Negative 12/09/17 12/09/17 12/09/17 11:01 12:40 12:40 WBC RBC Hgb Hct MCV MCH MCHC RDW Plt Count MPV Gran % Lymph % (Auto) Boyd % (Auto) Eos % (Auto) Baso % (Auto) Gran # Lymph # Boyd # Eos # Baso # Neutrophils % (Manual) Band Neutrophils % Lymphocytes % (Manual) Monocytes % (Manual) Platelet Evaluation Large Platelets Giant Platelets PT INR pO2 179 H VBG pH 7.39 VBG pCO2 37.0 L VBG HCO3 22.4 VBG Total CO2 23.5 VBG O2 Sat (Calc) 99.3 H VBG Base Excess -2.2 L VBG Potassium 3.9 Glucose 255 H Lactate 2.5 H FiO2 21.0 Sodium 141.0 Potassium Chloride 110.0 H Carbon Dioxide Anion Gap BUN Creatinine Est GFR ( Amer) Est GFR (Non-Af Amer) POC Glucose (mg/dL) 222 H Random Glucose Calcium Phosphorus Magnesium Iron TIBC % Saturation Ferritin Total Bilirubin AST ALT Alkaline Phosphatase Lactate Dehydrogenase 682 Total Creatine Kinase 232 H CK-MB (CK-2) 2.7 CK-MB (CK-2) % Cancelled Troponin I 0.09 Total Protein Albumin Globulin Albumin/Globulin Ratio Venous Blood Potassium 3.9 Hepatitis A IgM Ab Hep Bs Antigen Hep B Core IgM Ab Hepatitis C Antibody 12/09/17 12/09/17 12/09/17 13:32 16:19 17:07 WBC RBC Hgb Hct MCV MCH MCHC RDW Plt Count MPV Gran % Lymph % (Auto) Boyd % (Auto) Eos % (Auto) Baso % (Auto) Gran # Lymph # Boyd # Eos # Baso # Neutrophils % (Manual) Band Neutrophils % Lymphocytes % (Manual) Monocytes % (Manual) Platelet Evaluation Large Platelets Giant Platelets PT 28.0 H INR 2.41 H pO2 120 H VBG pH 7.40 VBG pCO2 39.0 L VBG HCO3 24.2 VBG Total CO2 25.4 VBG O2 Sat (Calc) 99.5 H VBG Base Excess -0.5 L VBG Potassium 3.9 Glucose 212 H Lactate 1.7 FiO2 21.0 Sodium 143.0 Potassium Chloride 111.0 H Carbon Dioxide Anion Gap BUN Creatinine Est GFR ( Amer) Est GFR (Non-Af Amer) POC Glucose (mg/dL) 197 H Random Glucose Calcium Phosphorus Magnesium Iron TIBC % Saturation Ferritin Total Bilirubin AST ALT Alkaline Phosphatase Lactate Dehydrogenase Total Creatine Kinase CK-MB (CK-2) CK-MB (CK-2) % Troponin I Total Protein Albumin Globulin Albumin/Globulin Ratio Venous Blood Potassium 3.9 Hepatitis A IgM Ab Hep Bs Antigen Hep B Core IgM Ab Hepatitis C Antibody 12/09/17 12/09/17 12/09/17 17:07 17:07 21:47 WBC 36.2 H* RBC 3.51 Hgb 8.5 L Hct 26.9 L MCV 76.6 L MCH 24.2 L MCHC 31.6 RDW 19.5 H Plt Count 165 MPV 11.4 H Gran % 86.0 H Lymph % (Auto) 5.5 L Boyd % (Auto) 8.4 H Eos % (Auto) 0.0 L Baso % (Auto) 0.1 Gran # 31.14 H Lymph # 2.0 Boyd # 3.1 H Eos # 0.0 Baso # 0.04 Neutrophils % (Manual) Band Neutrophils % Lymphocytes % (Manual) Monocytes % (Manual) Platelet Evaluation Large Platelets Giant Platelets PT INR pO2 VBG pH VBG pCO2 VBG HCO3 VBG Total CO2 VBG O2 Sat (Calc) VBG Base Excess VBG Potassium Glucose Lactate FiO2 Sodium 139 Potassium 3.9 Chloride 106 Carbon Dioxide 24 Anion Gap 13 BUN 39 H Creatinine 1.1 Est GFR ( Amer) 57 Est GFR (Non-Af Amer) 47 POC Glucose (mg/dL) 140 H Random Glucose 205 H Calcium 7.7 L Phosphorus Magnesium Iron TIBC % Saturation Ferritin Total Bilirubin 3.0 H AST 114 H D ALT 247 H Alkaline Phosphatase 355 H D Lactate Dehydrogenase Total Creatine Kinase CK-MB (CK-2) CK-MB (CK-2) % Troponin I Total Protein 6.1 Albumin 2.9 L Globulin 3.2 Albumin/Globulin Ratio 0.9 L Venous Blood Potassium Hepatitis A IgM Ab Hep Bs Antigen Hep B Core IgM Ab Hepatitis C Antibody 12/10/17 12/10/17 12/10/17 06:25 06:25 07:29 WBC 29.7 H* RBC 3.86 Hgb 9.1 L Hct 29.7 L MCV 76.9 L MCH 23.6 L MCHC 30.6 L RDW 19.7 H Plt Count 169 MPV Gran % 91.2 H Lymph % (Auto) 5.6 L Boyd % (Auto) 3.1 Eos % (Auto) 0.1 L Baso % (Auto) 0.0 Gran # 27.04 H Lymph # 1.7 Boyd # 0.9 H Eos # 0.0 Baso # 0.01 Neutrophils % (Manual) Band Neutrophils % Lymphocytes % (Manual) Monocytes % (Manual) Platelet Evaluation Large Platelets Giant Platelets PT INR pO2 VBG pH VBG pCO2 VBG HCO3 VBG Total CO2 VBG O2 Sat (Calc) VBG Base Excess VBG Potassium Glucose Lactate FiO2 Sodium 144 Potassium 3.5 L Chloride 109 H Carbon Dioxide 25 Anion Gap 13 BUN 45 H Creatinine 1.1 Est GFR ( Amer) 57 Est GFR (Non-Af Amer) 47 POC Glucose (mg/dL) 86 Random Glucose 86 Calcium 8.0 L Phosphorus 3.9 Magnesium 2.4 H Iron TIBC % Saturation Ferritin Total Bilirubin 2.1 H AST 101 H ALT 223 H Alkaline Phosphatase 386 H Lactate Dehydrogenase Total Creatine Kinase CK-MB (CK-2) CK-MB (CK-2) % Troponin I Total Protein 6.3 Albumin 2.9 L Globulin 3.4 Albumin/Globulin Ratio 0.9 L Venous Blood Potassium Hepatitis A IgM Ab Hep Bs Antigen Hep B Core IgM Ab Hepatitis C Antibody EKG/Cardiology Studies: Cardiology / EKG Studies 12/09/17 10:23 ELECTROCARDIOGRAM Stat Comment: Reason For Exam: CP PRE OP:: N Does Patient Have a Pacemaker?: No Fingerstick Blood Sugar Results: 140 Critical Care Progress Note - Nutrition Nutrition: Nutrition Category Date Time Status NPO Diet [DIET] Diets 12/09/17 Breakfast Ordered Assessment/Plan - Assessment and Plan (Free Text) Assessment: 82F with septic shock and MODS due to acute cholecystitis and ascending cholangitis, s/p fluid resuscitation, abx, off; ERCP with stents. SUSIE improved, leukocytosis, lactate, and T.Bili is trending down. Plan: Neuro: AAOx3, responds to verbal stimuli, answers questions appropriately, follows commands, and moves extremities past midline Cardio: Afib w/ RVR- resolved off pressors and cardizem drip; rate control with beta-blockers c/s Dr. Loo- all recs appreciated PO cardizem keep MAP > 65 Pulm: keep SaO2 above 92% OOB & IC use GI: US: cholecystitis, choledocolithiasis s/p ERCP and stent placement NPO c/s GI Dr. Rasmussen- all recs appreciated c/s Surgery- Dr. Buckley possible cholecystectomy today Renal/electrolytes: Hypokalemia- resolved replete electrolytes PRN donahue strict I/O Endo: keep pt euglycemic and euvolemic Heme: s/p 4uFFP and VitK repeat INR Repeat VBG shock lactate trending down DVT ppx ID: IV abx Vanc and Merrem c/s Paulette Patient stable to be transferred to Telemetry case discussed w/ Dr. Tran Critical Care attending Angel Bermudez PGY1 <Fernando Tran - Last Filed: 12/10/17 18:13> CCU Objective - Vital Signs / Intake & Output Intake and Output (Last 8hrs): Intake & Output 12/10/17 12/10/17 12/10/17 06:59 14:59 22:59 Intake Total 2045 Output Total 300 Balance 1745 Intake: IV 2045 Left Hand 45 Right Antecubital 2000 Output: Urine 300 Urethral (Donahue) 300 Other: # Bowel Movements 2 - Medications Active Medications: Active Medications Generic Name Dose Route Start Last Admin Trade Name Freq PRN Reason Stop Dose Admin Digoxin 0.125 mg 12/10/17 14:00 12/10/17 14:35 Lanoxin IV 0.125 mg 1400 COLIN Administration Famotidine 20 mg 12/09/17 10:00 12/10/17 14:35 Pepcid IVP 20 mg DAILY COLIN Administration Meropenem 50 mls @ 100 mls/hr 12/10/17 10:00 12/10/17 14:34 Merrem Iv 1 Gm Premix IVPB 12/19/17 10:01 100 mls/hr Q12 COLIN Administration Protocol Insulin Human Regular 0 units 12/09/17 07:30 12/10/17 14:36 Humulin R Low SC Not Given ACHS COLIN Protocol - Patient Studies Lab Studies: Microbiology Studies 12/09/17 02:35 MRSA Culture (Admit) - Final Naris MRSA NOT DETECTED 12/09/17 11:45 Urine Culture - Final Urine,Donahue No Growth (<1,000 CFU/ML) Lab Studies 12/10/17 12/10/17 12/10/17 Range/Units 11:54 10:00 07:29 WBC (4.5-11.0) 10^3/ul RBC (3.5-6.1) 10^6/uL Hgb (12.0-16.0) g/dL Hct (36.0-48.0) % MCV (80.0-105.0) fl MCH (25.0-35.0) pg MCHC (31.0-37.0) g/dl RDW (11.5-14.5) % Plt Count (120.0-450.0) 10^3/uL Gran % (50.0-68.0) % Lymph % (Auto) (22.0-35.0) % Boyd % (Auto) (1.0-6.0) % Eos % (Auto) (1.5-5.0) % Baso % (Auto) (0.0-3.0) % Gran # (1.4-6.5) Lymph # (1.2-3.4) Boyd # (0.1-0.6) Eos # (0.0-0.7) Baso # (0.0-2.0) K/mm3 PT 17.6 H (9.4-12.5) SECONDS INR 1.52 H (0.93-1.08) Sodium (132-148) mmol/L Potassium (3.6-5.0) mmol/L Chloride (98-107) mmol/L Carbon Dioxide (21-33) mmol/L Anion Gap (10-20) BUN (7-21) mg/dL Creatinine (0.7-1.2) mg/dl Est GFR ( Amer) Est GFR (Non-Af Amer) POC Glucose (mg/dL) 128 H 86 (65-110) mg/dL Random Glucose (70-110) mg/dL Calcium (8.4-10.5) mg/dL Phosphorus (2.5-4.5) mg/dL Magnesium (1.7-2.2) mg/dL Total Bilirubin (0.2-1.3) mg/dL AST (14-36) U/L ALT (7-56) U/L Alkaline Phosphatase (38-126) U/L Total Protein (5.8-8.3) g/dL Albumin (3.0-4.8) g/dL Globulin gm/dL Albumin/Globulin Ratio (1.1-1.8) 12/10/17 12/10/17 12/09/17 Range/Units 06:25 06:25 21:47 WBC 29.7 H* (4.5-11.0) 10^3/ul RBC 3.86 (3.5-6.1) 10^6/uL Hgb 9.1 L (12.0-16.0) g/dL Hct 29.7 L (36.0-48.0) % MCV 76.9 L (80.0-105.0) fl MCH 23.6 L (25.0-35.0) pg MCHC 30.6 L (31.0-37.0) g/dl RDW 19.7 H (11.5-14.5) % Plt Count 169 (120.0-450.0) 10^3/uL Gran % 91.2 H (50.0-68.0) % Lymph % (Auto) 5.6 L (22.0-35.0) % Boyd % (Auto) 3.1 (1.0-6.0) % Eos % (Auto) 0.1 L (1.5-5.0) % Baso % (Auto) 0.0 (0.0-3.0) % Gran # 27.04 H (1.4-6.5) Lymph # 1.7 (1.2-3.4) Boyd # 0.9 H (0.1-0.6) Eos # 0.0 (0.0-0.7) Baso # 0.01 (0.0-2.0) K/mm3 PT (9.4-12.5) SECONDS INR (0.93-1.08) Sodium 144 (132-148) mmol/L Potassium 3.5 L (3.6-5.0) mmol/L Chloride 109 H (98-107) mmol/L Carbon Dioxide 25 (21-33) mmol/L Anion Gap 13 (10-20) BUN 45 H (7-21) mg/dL Creatinine 1.1 (0.7-1.2) mg/dl Est GFR ( Amer) 57 Est GFR (Non-Af Amer) 47 POC Glucose (mg/dL) 140 H (65-110) mg/dL Random Glucose 86 (70-110) mg/dL Calcium 8.0 L (8.4-10.5) mg/dL Phosphorus 3.9 (2.5-4.5) mg/dL Magnesium 2.4 H (1.7-2.2) mg/dL Total Bilirubin 2.1 H (0.2-1.3) mg/dL AST 101 H (14-36) U/L ALT 223 H (7-56) U/L Alkaline Phosphatase 386 H (38-126) U/L Total Protein 6.3 (5.8-8.3) g/dL Albumin 2.9 L (3.0-4.8) g/dL Globulin 3.4 gm/dL Albumin/Globulin Ratio 0.9 L (1.1-1.8) Laboratory Results - last 24 hr 12/09/17 12/10/17 12/10/17 21:47 06:25 06:25 WBC 29.7 H* RBC 3.86 Hgb 9.1 L Hct 29.7 L MCV 76.9 L MCH 23.6 L MCHC 30.6 L RDW 19.7 H Plt Count 169 Gran % 91.2 H Lymph % (Auto) 5.6 L Boyd % (Auto) 3.1 Eos % (Auto) 0.1 L Baso % (Auto) 0.0 Gran # 27.04 H Lymph # 1.7 Boyd # 0.9 H Eos # 0.0 Baso # 0.01 PT INR Sodium 144 Potassium 3.5 L Chloride 109 H Carbon Dioxide 25 Anion Gap 13 BUN 45 H Creatinine 1.1 Est GFR ( Amer) 57 Est GFR (Non-Af Amer) 47 POC Glucose (mg/dL) 140 H Random Glucose 86 Calcium 8.0 L Phosphorus 3.9 Magnesium 2.4 H Total Bilirubin 2.1 H AST 101 H ALT 223 H Alkaline Phosphatase 386 H Total Protein 6.3 Albumin 2.9 L Globulin 3.4 Albumin/Globulin Ratio 0.9 L 12/10/17 12/10/17 12/10/17 07:29 10:00 11:54 WBC RBC Hgb Hct MCV MCH MCHC RDW Plt Count Gran % Lymph % (Auto) Boyd % (Auto) Eos % (Auto) Baso % (Auto) Gran # Lymph # Boyd # Eos # Baso # PT 17.6 H INR 1.52 H Sodium Potassium Chloride Carbon Dioxide Anion Gap BUN Creatinine Est GFR ( Amer) Est GFR (Non-Af Amer) POC Glucose (mg/dL) 86 128 H Random Glucose Calcium Phosphorus Magnesium Total Bilirubin AST ALT Alkaline Phosphatase Total Protein Albumin Globulin Albumin/Globulin Ratio Critical Care Progress Note - Nutrition Nutrition: Nutrition Category Date Time Status Liquid Diet [DIET] Diets 12/10/17 Breakfast Ordered Attending/Attestation - Attestation I have personally seen and examined this patient.: Yes I have fully participated in the care of the patient.: Yes I have reviewed all pertinent clinical information: Yes Notes (Text): 12/10/17 18:11 82 yo female with resolved septic shock due to ascending cholangitis+ acute cholecystitis. Hemodynamically relatively stable, fever and wbc improved, abx continued, surgery follow up to determine time for cholecystectomy, SUSIE, LFTs improved. ok to downgrade to tele. ccm time 40 min
[2017-12-10] MEDS ORDERED: Lactated Ringer's 1,000 ML IV SCH (08:27)
--- NOTE | 2017-12-10 08:49 | CP.PCM.PN ---
<Ananth Tellez - Last Filed: 12/10/17 11:53> Subjective - Date & Time of Evaluation Date of Evaluation: 12/10/17 Time of Evaluation: 06:40 - Subjective Subjective: PGY5 GI Fellow Progress Note Patient seen and examined bedside this morning. The patient states she is thirsty and has dry mouth but otherwise has no complaints. Some difficulty sleeping. Denies any pain, nausea, vomiting, fever, chills today. 12 system ROS performed and negative except where stated. Objective - Vital Signs/Intake and Output Vital Signs (last 24 hours): Temp Pulse Resp BP Pulse Ox 97.4 F L 94 H 19 135/85 100 12/10/17 04:00 12/10/17 06:00 12/10/17 06:00 12/10/17 06:00 12/10/17 06:00 Intake and Output: 12/10/17 12/10/17 06:59 18:59 Intake Total 2045 Output Total 300 Balance 1745 - Medications Medications: Current Medications Digoxin (Lanoxin) 0.125 mg IV 1400 [facility] Famotidine (Pepcid) 20 mg IVP DAILY [facility] Last Admin: 12/09/17 11:20 Dose: 20 mg Meropenem (Merrem Iv 1 Gm Premix) 50 mls @ 100 mls/hr IVPB Q8 [facility] PRN Reason: Protocol Stop: 12/18/17 07:31 Last Admin: 12/10/17 05:24 Dose: 100 mls/hr Potassium Chloride (Potassium Chloride 10 Meq/100 Ml) 10 meq in 100 mls @ 50 mls/hr IVPB ONCE ONE Stop: 12/10/17 09:45 Lactated Ringer's (Lactated Ringer's) 1,000 mls @ 50 mls/hr IV .Q20H [facility] Stop: 12/10/17 13:44 Insulin Human Regular (Humulin R Low) 0 units SC ACHS [facility] PRN Reason: Protocol Last Admin: 12/09/17 22:04 Dose: Not Given - Labs Labs: 12/10/17 06:25 12/10/17 06:25 PT 28.0 SECONDS (9.4-12.5) H 12/09/17 13:32 INR 2.41 (0.93-1.08) H 12/09/17 13:32 APTT 34.0 Seconds (25.1-36.5) 12/08/17 21:30 - Constitutional Appears: Non-toxic, No Acute Distress - Eye Exam Eye Exam: EOMI, PERRL - ENT Exam ENT Exam: Mucous Membranes Moist - Respiratory Exam Respiratory Exam: Clear to Ausculation Bilateral. absent: Rales, Rhonchi, Wheezes - Cardiovascular Exam Cardiovascular Exam: +S1, +S2 Additional comments: irregular rhythm, regular rate - GI/Abdominal Exam GI & Abdominal Exam: Soft, Normal Bowel Sounds. absent: Distended, Firm, Guarding, Rigid, Tenderness, Organomegaly - Extremities Exam Extremities Exam: Normal Inspection. 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 Patient states that approximately 3 weeks ago she developed Shingles under her left breast extending to the flank and back. -Sepsis 2/2 acute cholangitis s/p ERCP with CBD stent placement -Choledocolithiasis -AFib, coumadin held since admission -Chronic anemia Plan: -Continue broad spectrum antibiotics: Merrem -S/P ERCP with CBD stent placement, POD#1 -Repeat ERCP in 6-8 weeks for sphincterotomy, balloon extraction of stones and removal of stent -LFTs downtrending; WBC modestly improved -Off pressors this morning -Awaiting blood, urine cultures -Rate controlled AFib at present, maintained on PO therapy -Decision to go for lap surendra with surgery per their service -Proteinuria/hematuria noted on U/A which may warrant further investigation by primary service <Laurent Recio - Last Filed: 12/10/17 13:11> Objective - Vital Signs/Intake and Output Vital Signs (last 24 hours): Temp Pulse Resp BP Pulse Ox 97.4 F L 94 H 19 135/85 100 12/10/17 04:00 12/10/17 06:00 12/10/17 06:00 12/10/17 06:00 12/10/17 06:00 Intake and Output: 12/10/17 12/10/17 06:59 18:59 Intake Total 2045 Output Total 300 Balance 1745 - Medications Medications: Current Medications Digoxin (Lanoxin) 0.125 mg IV 1400 [facility] Famotidine (Pepcid) 20 mg IVP DAILY [facility] Last Admin: 12/09/17 11:20 Dose: 20 mg Lactated Ringer's (Lactated Ringer's) 1,000 mls @ 50 mls/hr IV .Q20H [facility] Stop: 12/10/17 13:44 Last Admin: 12/10/17 08:59 Dose: 50 mls/hr Meropenem (Merrem Iv 1 Gm Premix) 50 mls @ 100 mls/hr IVPB Q12 [facility] PRN Reason: Protocol Stop: 12/19/17 10:01 Insulin Human Regular (Humulin R Low) 0 units SC ACHS [facility] PRN Reason: Protocol Last Admin: 12/10/17 07:30 Dose: Not Given - Labs Labs: 12/10/17 06:25 12/10/17 06:25 PT 17.6 SECONDS (9.4-12.5) H 12/10/17 10:00 INR 1.52 (0.93-1.08) H 12/10/17 10:00 APTT 34.0 Seconds (25.1-36.5) 12/08/17 21:30 Attending/Attestation - Attestation I have personally seen and examined this patient.: Yes I have fully participated in the care of the patient.: Yes I have reviewed all pertinent clinical information, including history, physical exam and plan: Yes Notes (Text): 12/10/17 13:08 I have seen and examined patient with GI fellow. No acute events overnight, she is seen resting in bed comfortably. She endorses mild dyspnea but otherwise reports no abdominal pain, nausea, vomiting, fever/chills. Tolerating PO liquids without difficulty. Review of vitals from today shows tachycardia. Atrial fibrillation on coumadin DM HTN Sepsis, cholangitis - s/p ERCP with biliary stent placement Choledocholithiasis - Liquid diet as tolerated - Continue with antibiotic therapy - LFTs trending down, continue to monitor - Follow up surgical recommendations regarding timing of cholecystectomy - Patient will require repeat ERCP with stone extraction and stent removal, to be scheduled electively as outpatient within 6 weeks. No further planned GI interventions, will sign off case. Please reconsult as necessary, thank you.
--- NOTE | 2017-12-10 10:02 | CARD ---
APPROVED REPORT EXAM: Two-dimensional and M-mode echocardiogram with Doppler and color Doppler. Other Information Quality : FairRhythm : INDICATION Atrial Fibrillation , Septic Shock 2D DIMENSIONS RVDd3.4 (2.9-3.5cm)Left Atrium (2D)4.7 (1.6-4.0cm) IVSd1.0 (0.7-1.1cm)LVDd4.6 (3.9-5.9cm) PWd1.0 (0.7-1.1cm) M-Mode DIMENSIONS Aortic Root2.80 (2.2-3.7cm)Aortic Cusp Exc.1.60 (1.5-2.0cm) Aortic Valve AoV Peak Eakcnxec660.0cm/s Mitral Valve E/A ratio0.0 TDI E/Lateral E'0.0E/Medial E'0.0 Pulmonary Valve PV Peak Uqfusnwy84.2cm/sPV Peak Grad.1mmHg Tricuspid Valve TR Peak Suticayu029iw/sRAP [id number] Peak Gr.48mmHg [id number] LEFT VENTRICLE The left ventricle is normal size. There is normal left ventricular wall thickness. The left ventricular function is normal. The left ventricular ejection fraction is within the normal range. There is normal LV segmental wall motion. RIGHT VENTRICLE The right ventricle is normal size. ATRIA The left atrium is moderately dilated. The right atrium is moderately dilated. The interatrial septum is intact with no evidence for an atrial septal defect. AORTIC VALVE The aortic valve is normal in structure. MITRAL VALVE The mitral valve is normal in structure. Mitral annular calcification is moderate. Mitral regurgitation is mild to moderate. TRICUSPID VALVE The tricuspid valve is normal in structure. There is moderate to severe tricuspid regurgitation. There is moderate-severe pulmonary hypertension. GREAT VESSELS The aortic root is normal in size. PERICARDIAL EFFUSION There is no pericardial effusion. <Conclusion> The left ventricle is normal size. There is normal left ventricular wall thickness. The left ventricular function is normal. The left ventricular ejection fraction is within the normal range. Mitral regurgitation is mild to moderate. There is moderate to severe tricuspid regurgitation. There is moderate-severe pulmonary hypertension.
--- NOTE | 2017-12-10 10:17 | CP.PCM.PN ---
Subjective - Date & Time of Evaluation Date of Evaluation: 12/10/17 Time of Evaluation: 09:30 - Subjective Subjective: Comfortable in bed but still NPO, no nausea currently, no fevers overnight, still with some abdominal pain. Objective - Vital Signs/Intake and Output Vital Signs (last 24 hours): Temp Pulse Resp BP Pulse Ox 97.4 F L 94 H 19 135/85 100 12/10/17 04:00 12/10/17 06:00 12/10/17 06:00 12/10/17 06:00 12/10/17 06:00 Intake and Output: 12/09/17 12/10/17 18:59 06:59 Intake Total 1692 2045 Output Total 500 300 Balance 1192 1745 - Medications Medications: Current Medications Famotidine (Pepcid) 20 mg IVP DAILY [facility] Last Admin: 12/09/17 11:20 Dose: 20 mg Meropenem (Merrem Iv 1 Gm Premix) 50 mls @ 100 mls/hr IVPB Q8 [facility] PRN Reason: Protocol Stop: 12/18/17 07:31 Last Admin: 12/10/17 05:24 Dose: 100 mls/hr NOREPINEPHRINE BIT/0.9 % NACL (Levophed 4 Mg/ 250 Ml Ns Premixed) 4 mg in 250 mls @ 15 mls/hr IV .[id number] PRN; Protocol; 4 MCG/MIN PRN Reason: TITRATE PER MD ORDER Dobutamine HCl/Dextrose (Dobutamine/Dextrose 5% 500mg/250ml) 500 mg in 250 mls @ 3.837 mls/hr IV .Q24H PRN; Protocol; 2 MCG/KG/MIN PRN Reason: TITRATE PER PROTOCOL Last Admin: 12/09/17 11:00 Dose: 2 mcg/kg/min, 3.837 mls/hr Lactated Ringer's (Lactated Ringer's) 1,000 mls @ 150 mls/hr IV .Q6H40M [facility] Last Admin: 12/10/17 00:30 Dose: 150 mls/hr Insulin Human Regular (Humulin R Low) 0 units SC ACHS [facility] PRN Reason: Protocol Last Admin: 12/09/17 22:04 Dose: Not Given - Labs Labs: 12/09/17 17:07 12/09/17 17:07 PT 28.0 SECONDS (9.4-12.5) H 12/09/17 13:32 INR 2.41 (0.93-1.08) H 12/09/17 13:32 APTT 34.0 Seconds (25.1-36.5) 12/08/17 21:30 - Constitutional Appears: Chronically Ill - Head Exam Head Exam: NORMAL INSPECTION - ENT Exam ENT Exam: Mucous Membranes Moist - Neck Exam Neck Exam: absent: Meningismus - Respiratory Exam Respiratory Exam: Decreased Breath Sounds - Cardiovascular Exam Cardiovascular Exam: +S1, +S2 - GI/Abdominal Exam GI & Abdominal Exam: Soft. absent: Tenderness Assessment and Plan - Assessment and Plan (Free Text) Plan: Assessment Severe sepsis/septic shock from acute cholecystitis with gram negative bacteremia S/P ERCP and biliary stent placement POD #1 history of colostomy and reversal of colostomy (had it previously after colectomy for abscess related to fish bone) history of healthcare-associated pneumonia history of Cdiff associated diarrhea HTN CVA atrial fibrillation CAD dyslipidemia Plan continue Merrem for now pending OR cultures taken during ERCP and identification and sensitivities of the gram negative bacilli in the blood follow up plan for cholecystectomy will monitor clinically
[2017-12-10 10:41] LABS: INR 1.52 (0.93-1.08); PROTHROMBIN TIME 17.6 SECONDS (9.4-12.5)
--- NOTE | 2017-12-10 10:43 | PN ---
DATE: SUBJECTIVE: The patient has no complaints of any chest pain. No shortness of breath. She states she is weak and tired and fatigued. PHYSICAL EXAMINATION: VITAL SIGNS: Temperature is 97.4, pulse is 94, blood pressure is 135/85, and respirations are 19. GENERAL: The patient is lying in bed, flat, comfortable. HEENT: No oral lesion. Anicteric sclerae. Moist mucosa. NECK: No JVD, adenopathy, or thyromegaly. CARDIOVASCULAR: S1 and S2, regular. No murmurs, rubs, or gallops. LUNGS: Clear to auscultation bilaterally. No wheeze, rales, or rhonchi. ABDOMEN: Bowel sounds are positive, soft, nontender and nondistended. EXTREMITIES: No cyanosis, clubbing or edema. LABORATORY DATA: White count is 29.7 and hemoglobin is 9.1. Potassium is 3.5. ASSESSMENT: 1. Septic shock, improved. 2. Diabetes type 2. 3. Atrial fibrillation. 4. Dyslipidemia. 5. Hypokalemia. 6. Transaminitis. 7. Common bile duct stones. 8. Common bile duct dilation at 1.5 cm. 9. Hypomagnesemia. 10. Hypophosphatemia. 11. Status post endoscopic retrograde cholangiopancreatography with stent placement. PLAN: The patient is currently improving. The patient had common bile duct stone that is the cause of the patient's shock. The patient is currently off of pressors at this point. Had a stent that was placed. The patient's blood work shows that the white count is improving. The total bilirubin is improving as well. The patient's hepatitis B and hepatitis C has been negative as well as influenza. She is currently on insulin coverage. I will decrease her IV fluids, lactated ringer's to 50 an hour. The patient is on Pepcid . She is n.p.o. She is being followed by GI. I did review their notes. She will need repeat blood work tomorrow, so magnesium and phosphorus were replaced yesterday. Her magnesium and phosphorus have improved. I did inform Dr. Fernando, the patient's primary care doctor, about the patient's condition yesterday. Edmond Nixon MD [facility] # [phone]
--- NOTE | 2017-12-10 10:44 | CP.PCM.PN ---
Subjective - Date & Time of Evaluation Date of Evaluation: 12/10/17 Time of Evaluation: 07:30 - Subjective Subjective: Surgery: Dr. Buckley Pt seen and examined. No acute events overnight. Pt states she wasn't able to sleep well and feels tierd but otherwise doesn't have any complaints. Denies abdominal pain. Denies N/V, F/C. Objective - Vital Signs/Intake and Output Vital Signs (last 24 hours): Temp Pulse Resp BP Pulse Ox 97.4 F L 94 H 19 135/85 100 12/10/17 04:00 12/10/17 06:00 12/10/17 06:00 12/10/17 06:00 12/10/17 06:00 Intake and Output: 12/10/17 12/10/17 06:59 18:59 Intake Total 2045 Output Total 300 Balance 1745 - Medications Medications: Current Medications Digoxin (Lanoxin) 0.125 mg IV 1400 [facility] Famotidine (Pepcid) 20 mg IVP DAILY [facility] Last Admin: 12/09/17 11:20 Dose: 20 mg Lactated Ringer's (Lactated Ringer's) 1,000 mls @ 50 mls/hr IV .Q20H [facility] Stop: 12/10/17 13:44 Last Admin: 12/10/17 08:59 Dose: 50 mls/hr Meropenem (Merrem Iv 1 Gm Premix) 50 mls @ 100 mls/hr IVPB Q12 [facility] PRN Reason: Protocol Stop: 12/19/17 10:01 Insulin Human Regular (Humulin R Low) 0 units SC ACHS [facility] PRN Reason: Protocol Last Admin: 12/10/17 07:30 Dose: Not Given - Labs Labs: 12/10/17 06:25 12/10/17 06:25 PT 28.0 SECONDS (9.4-12.5) H 12/09/17 13:32 INR 2.41 (0.93-1.08) H 12/09/17 13:32 APTT 34.0 Seconds (25.1-36.5) 12/08/17 21:30 - Constitutional Appears: Well, No Acute Distress - Eye Exam Eye Exam: Normal appearance - ENT Exam ENT Exam: Mucous Membranes Moist - Respiratory Exam Respiratory Exam: NORMAL BREATHING PATTERN - Cardiovascular Exam Cardiovascular Exam: Tachycardia - GI/Abdominal Exam GI & Abdominal Exam: Soft. absent: Distended, Tenderness - Neurological Exam Neurological Exam: Alert, Awake, Oriented x3 - Skin Skin Exam: Dry, Warm Assessment and Plan - Assessment and Plan (Free Text) Assessment: 82F with cholangitis s/p ERCP with stents Plan: - plan for OR on Wednesday - start CLD and advance as tolerated - medically optimize for OR - cont IV ABX - will monitor INR - d/w Dr. Marcio Santacruz, PGY-3 Surgery
[2017-12-10] MEDS: Digoxin 500 mcg/2ml (0.5 mg/2ml) Inj IV SCH (14:35)
[2017-12-10] MEDS ORDERED: Levalbuterol 0.63 MG/3 ML Inhal Soln UD IH STA (23:16)
--- NOTE | 2017-12-11 03:25 | CP.PCM.PN ---
Subjective - Date & Time of Evaluation Date of Evaluation: 12/10/17 Time of Evaluation: 21:00 - Subjective Subjective: called by nurse pt ,s monitor shows a-fib with hr of 130.pt denies complaints bp is 160/ 89 . Objective - Vital Signs/Intake and Output Vital Signs (last 24 hours): Temp Pulse Resp BP Pulse Ox 97.4 F L 105 H 21 149/108 H 99 12/10/17 04:00 12/11/17 02:00 12/11/17 00:40 12/11/17 00:00 12/11/17 00:40 Intake and Output: 12/10/17 12/11/17 18:59 06:59 Intake Total 1140 Output Total 400 Balance 740 - Medications Medications: Current Medications Digoxin (Lanoxin) 0.125 mg IV 1400 [facility] Last Admin: 12/10/17 14:35 Dose: 0.125 mg Famotidine (Pepcid) 20 mg IVP DAILY [facility] Last Admin: 12/10/17 14:35 Dose: 20 mg Meropenem (Merrem Iv 1 Gm Premix) 50 mls @ 100 mls/hr IVPB Q12 [facility] PRN Reason: Protocol Stop: 12/19/17 10:01 Last Admin: 12/10/17 21:29 Dose: 100 mls/hr Insulin Human Regular (Humulin R Low) 0 units SC ACHS [facility] PRN Reason: Protocol Last Admin: 12/10/17 22:37 Dose: Not Given - Labs Labs: 12/10/17 06:25 12/10/17 06:25 PT 17.6 SECONDS (9.4-12.5) H 12/10/17 10:00 INR 1.52 (0.93-1.08) H 12/10/17 10:00 APTT 34.0 Seconds (25.1-36.5) 12/08/17 21:30 - Constitutional Appears: No Acute Distress - Head Exam Head Exam: NORMOCEPHALIC - Eye Exam Eye Exam: Normal appearance Pupil Exam: PERRL - ENT Exam ENT Exam: Mucous Membranes Moist - Neck Exam Neck Exam: Full ROM - Respiratory Exam Respiratory Exam: Wheezes Additional comments: pt has wheezes on the left side of lung. - Cardiovascular Exam Cardiovascular Exam: Tachycardia, Irregular Rhythm - GI/Abdominal Exam GI & Abdominal Exam: Soft - Rectal Exam Rectal Exam: Deferred - Extremities Exam Extremities Exam: Full ROM - Neurological Exam Neurological Exam: Awake, Oriented x3 - Psychiatric Exam Psychiatric exam: Normal Affect - Skin Skin Exam: Warm Assessment and Plan - Assessment and Plan (Free Text) Assessment: atrial fib with rapid vent rate. Plan: cardiazem 10mg x1 stat given pt is on digoxine. pt hr is 97 now. duo halley x1.
[2017-12-11 06:01] LABS: HEMOGLOBIN 9.9 g/dL (12.0-16.0); MEAN CORPUSCULAR HEMOGLOBIN 24.1 pg (25.0-35.0); MEAN CORPUSCULAR HGB CONC 30.9 g/dl (31.0-37.0); PLATELET COUNT 179 10^3/uL (120.0-450.0); RED CELL DISTRIBUTION WIDTH 19.7 % (11.5-14.5)
[2017-12-11 06:30] LABS: WHITE BLOOD COUNT 29.3 10^3/ul (4.5-11.0)
[2017-12-11 06:34] LABS: ALB/GLOB RATIO 0.9 (1.1-1.8); ALBUMIN 2.9 g/dL (3.0-4.8); ALT/SGPT 182 U/L (7-56); AST/SGOT 58 U/L (14-36); BLOOD UREA NITROGEN 39 mg/dL (7-21); CALCIUM 8.5 mg/dL (8.4-10.5); GFR AFRICAN-AMERICAN > 60; GFR NON-AFRICAN AMERICAN > 60; MAGNESIUM 2.5 mg/dL (1.7-2.2)
--- NOTE | 2017-12-11 07:24 | CP.PCM.PN ---
Subjective - Date & Time of Evaluation Date of Evaluation: 12/11/17 Time of Evaluation: 07:21 - Subjective Subjective: Surgery: Dr. Buckley Pt seen and examined. No acute overnight events. Pt states she feels better compared to yesterday. Overall her biggest complaint is pain and itching secondary to her recent shingles. Denies abdominal pain, N/V, F/C. Objective - Vital Signs/Intake and Output Vital Signs (last 24 hours): Temp Pulse Resp BP Pulse Ox 97.8 F 94 H 21 136/86 99 12/11/17 06:00 12/11/17 06:59 12/11/17 06:59 12/11/17 07:00 12/11/17 06:59 Intake and Output: 12/11/17 12/11/17 06:59 18:59 Output Total 900 Balance -900 - Medications Medications: Current Medications Digoxin (Lanoxin) 0.125 mg IV 1400 [facility] Last Admin: 12/10/17 14:35 Dose: 0.125 mg Famotidine (Pepcid) 20 mg IVP DAILY [facility] Last Admin: 12/10/17 14:35 Dose: 20 mg Meropenem (Merrem Iv 1 Gm Premix) 50 mls @ 100 mls/hr IVPB Q12 [facility] PRN Reason: Protocol Stop: 12/19/17 10:01 Last Admin: 12/10/17 21:29 Dose: 100 mls/hr Insulin Human Regular (Humulin R Low) 0 units SC ACHS [facility] PRN Reason: Protocol Last Admin: 12/10/17 22:37 Dose: Not Given - Labs Labs: 12/11/17 05:30 12/11/17 05:30 PT 17.6 SECONDS (9.4-12.5) H 12/10/17 10:00 INR 1.52 (0.93-1.08) H 12/10/17 10:00 APTT 34.0 Seconds (25.1-36.5) 12/08/17 21:30 - Constitutional Appears: Well, No Acute Distress - Head Exam Head Exam: ATRAUMATIC, NORMOCEPHALIC - Eye Exam Eye Exam: Normal appearance - ENT Exam ENT Exam: Mucous Membranes Dry - Respiratory Exam Respiratory Exam: NORMAL BREATHING PATTERN - Cardiovascular Exam Cardiovascular Exam: Tachycardia, Irregular Rhythm - GI/Abdominal Exam GI & Abdominal Exam: Soft. absent: Distended, Guarding, Tenderness - Neurological Exam Neurological Exam: Alert, Awake, Oriented x3 - Skin Skin Exam: Dry, Warm Assessment and Plan - Assessment and Plan (Free Text) Assessment: 82F with cholangitis s/p ERCP with CBD stent Plan: - cont IV ABx per ID recs - plan for OR on wednesday for cholecystectomy if pt clinically stable - encourage out of bed to chair - d/w Dr. Marcio Santacruz, PGY-3 Surgery
--- NOTE | 2017-12-11 07:44 | CP.PCM.PN ---
Subjective - Date & Time of Evaluation Date of Evaluation: 12/11/17 Time of Evaluation: 07:00 - Subjective Subjective: Stable in ICU. No CP or SOB. S/P ERCP/biliary stent. V/S noted. AF, mod. VR. PE: Lungs: clear Cor: irreg, sys murmur Abd.: soft Ext. no edema Neuro: alert I/O= 1140/1300 recorded Labs noted: WBC=29,300, INR 12/10=1.52 BC x2 + GNR Echo: Nl LV fx., Mild/Mod. MR, Severe TR, mod/sev PH Objective - Vital Signs/Intake and Output Vital Signs (last 24 hours): Temp Pulse Resp BP Pulse Ox 97.8 F 94 H 21 136/86 99 12/11/17 06:00 12/11/17 06:59 12/11/17 06:59 12/11/17 07:00 12/11/17 06:59 Intake and Output: 12/11/17 12/11/17 06:59 18:59 Output Total 900 Balance -900 - Medications Medications: Current Medications Digoxin (Lanoxin) 0.125 mg IV 1400 [facility] Last Admin: 12/10/17 14:35 Dose: 0.125 mg Famotidine (Pepcid) 20 mg IVP DAILY [facility] Last Admin: 12/10/17 14:35 Dose: 20 mg Meropenem (Merrem Iv 1 Gm Premix) 50 mls @ 100 mls/hr IVPB Q12 [facility] PRN Reason: Protocol Stop: 12/19/17 10:01 Last Admin: 12/10/17 21:29 Dose: 100 mls/hr Insulin Human Regular (Humulin R Low) 0 units SC ACHS [facility] PRN Reason: Protocol Last Admin: 12/10/17 22:37 Dose: Not Given - Labs Labs: 12/11/17 05:30 12/11/17 05:30 PT 17.6 SECONDS (9.4-12.5) H 12/10/17 10:00 INR 1.52 (0.93-1.08) H 12/10/17 10:00 APTT 34.0 Seconds (25.1-36.5) 12/08/17 21:30 Assessment and Plan - Assessment and Plan (Free Text) Assessment: Weak/Lethargy/Fever initially Acute cholecystitis with septic shock/s/p ERCP with biliary stent 12/09/17 Gall Stones AF with RVR HBP Diabetes HLD CVA Anemia CVD Paramjit. THR Plan: As per GI and surgery: Cholecystectomy planned> Wednesday. IV Heparin for AF while awaiting surgery Digoxin 0.125 IV daily PO Verapamil for rate control. AB as per ID. Will follow.
[2017-12-11] MEDS: Verapamil 120 mg ER Tab PO SCH (09:51)
[2017-12-11] MEDS: Insulin Reg-LOW-Coverage SC SCH ×4 (09:52→22:19)
[2017-12-11] MEDS: Meropenem IV 1 gm in NS 50 ML IVPB SCH (09:53)
[2017-12-11] MEDS: Digoxin 500 mcg/2ml (0.5 mg/2ml) Inj IV SCH (13:36)
[2017-12-11] MEDS: metroNIDAZOLE IV 500 mg/100 ml 500 MG/100 ML BAG IVPB SCH (22:19)
--- NOTE | 2017-12-12 00:28 | PN ---
DATE: 12/11/2017 SUBJECTIVE: The patient was seen earlier this morning in room 128, bed 6. PHYSICAL EXAMINATION: GENERAL: The patient is in bed, in no acute distress. VITAL SIGNS: Temperature is 98, blood pressure is 130/80, respiratory rate of 21, heart rate of 94. The patient has nasal cannula. HEENT: Unremarkable. NECK: Supple. LUNGS: Decreased breath sounds. HEART: Normal S1 and S2. ABDOMEN: Soft and nontender. LABORATORY DATA: Reveals a white count of 29,000, hemoglobin of 10, platelets of 179. BUN of 39, creatinine of 0.8. Urinalysis is noted and digoxin is noted. Hepatitis profile is negative. Influenza is negative. Microbiology reveals the patient has E. coli in the blood which is davidson-sensitive. The patient's urine culture is negative. ALLERGIES: THE PATIENT HAS NO KNOWN ALLERGIES. ASSESSMENT AND PLAN: An 82-year-old female, past medical history is noted with a history of healthcare-associated pneumonia and history of Clostridium difficile associated diarrhea, hypertension, cerebrovascular accident, atrial fibrillation, coronary artery disease. The patient admitted with septic shock with an acute cholecystitis with Escherichia coli bacteremia, status post endoscopic retrograde cholangio-pancreatography and biliary stent placement post procedure day #2. The patient day before after the endoscopic retrograde cholangio-pancreatography Escherichia coli is davidson sensitive. We will discontinue the meropenem and use ceftriaxone and Flagyl pending OR for cholecystectomy on Wednesday. Twan Forrest MD
[2017-12-12] MEDS: metroNIDAZOLE IV 500 mg/100 ml 500 MG/100 ML BAG IVPB SCH ×3 (06:47→21:53)
--- NOTE | 2017-12-12 07:21 | CP.PCM.PN ---
Subjective - Date & Time of Evaluation Date of Evaluation: 12/12/17 Time of Evaluation: 07:00 - Subjective Subjective: Stable in ICU. No CP or SOB. S/P ERCP/biliary stent. Pre-op lap surendra tomorrow planned. V/S noted. AF, mod. VR. PE: Lungs: clear Cor: irreg, sys murmur Abd.: soft Ext. no edema Neuro: alert I/O= 1140/1300 recorded Labs 12/10 noted: WBC=29,300, INR 12/10=1.52 BC x2 + E. coli Echo: Nl LV fx., Mild/Mod. MR, Severe TR, mod/sev PH Objective - Vital Signs/Intake and Output Vital Signs (last 24 hours): Temp Pulse Resp BP Pulse Ox 97.8 F 82 21 136/86 99 12/11/17 06:00 12/12/17 06:00 12/11/17 06:59 12/11/17 07:00 12/11/17 06:59 Intake and Output: 12/12/17 12/12/17 06:59 18:59 Output Total 600 Balance -600 - Medications Medications: Current Medications Digoxin (Lanoxin) 0.125 mg IV 1400 [facility] Last Admin: 12/11/17 13:36 Dose: 0.125 mg Famotidine (Pepcid) 20 mg IVP DAILY [facility] Last Admin: 12/11/17 09:51 Dose: 20 mg Ceftriaxone Sodium (Rocephin 2 Gm Ivpb) 2 gm in 100 mls @ 100 mls/hr IVPB DAILY [facility] PRN Reason: Protocol Stop: 12/21/17 10:01 Metronidazole (Flagyl) 500 mg in 100 mls @ 100 mls/hr IVPB Q8 [facility] PRN Reason: Protocol Stop: 12/20/17 22:01 Last Admin: 12/12/17 06:47 Dose: 100 mls/hr Insulin Human Regular (Humulin R Low) 0 units SC ACHS [facility] PRN Reason: Protocol Last Admin: 12/11/17 22:19 Dose: Not Given Verapamil HCl (Calan Sr Tab) 120 mg PO DAILY [facility] Last Admin: 12/11/17 09:51 Dose: 120 mg - Labs Labs: 12/11/17 05:30 12/11/17 05:30 PT 17.6 SECONDS (9.4-12.5) H 12/10/17 10:00 INR 1.52 (0.93-1.08) H 12/10/17 10:00 APTT 34.0 Seconds (25.1-36.5) 12/08/17 21:30 Assessment and Plan - Assessment and Plan (Free Text) Assessment: Weak/Lethargy/Fever initially Acute cholecystitis with septic shock, E. coli sepsis /s/p ERCP with biliary stent 12/09/17 Gall Stones AF with RVR HBP Diabetes HLD CVA Anemia CVD Paramjit. THR Plan: As per GI and surgery: Cholecystectomy planned> Wednesday. IV Heparin for AF while awaiting surgery Digoxin 0.125 IV daily PO Verapamil for rate control. AB as per ID. Will follow.
[2017-12-12] MEDS ORDERED: Heparin 25,000units in D5W 250 ML IV PRN (07:26)
[2017-12-12] MEDS ORDERED: Heparin25000 units/250ml 1/2NS 25,000 UNITS/250 ML BAG IV SCH (08:15)
[2017-12-12] MEDS: Insulin Reg-LOW-Coverage SC SCH ×4 (08:24→21:56)
[2017-12-12] MEDS: Heparin25000 units/250ml 1/2NS 25,000 UNITS/250 ML BAG IV PRN (09:25)
[2017-12-12] MEDS: cefTRIAXone 2 GM IN NS 2 GM/100 ML BAG IVPB SCH (09:26)
[2017-12-12] MEDS: Verapamil 120 mg ER Tab PO SCH (09:40)
[2017-12-12] MEDS: Nystatin 100,000 Units/gm Topical Pow(15 gm) TOP SCH ×2 (10:08→17:23)
--- NOTE | 2017-12-12 10:11 | CP.PCM.PN ---
Subjective - Date & Time of Evaluation Date of Evaluation: 12/12/17 Time of Evaluation: 07:45 - Subjective Subjective: Surgery Progress note. Dr. Buckley Pt seen and examined at bedside. No acute events overnight. States that RUQ pain has improved. No F/C. No new complaints. Tolerating liquids. Objective - Vital Signs/Intake and Output Vital Signs (last 24 hours): Temp Pulse Resp BP Pulse Ox 97.8 F 118 H 21 180/103 H 99 12/12/17 06:00 12/12/17 09:40 12/11/17 06:59 12/12/17 09:40 12/11/17 06:59 Intake and Output: 12/12/17 12/12/17 06:59 18:59 Output Total 600 Balance -600 - Medications Medications: Current Medications Digoxin (Lanoxin) 0.125 mg IV 1400 [facility] Last Admin: 12/11/17 13:36 Dose: 0.125 mg Famotidine (Pepcid) 20 mg IVP DAILY [facility] Last Admin: 12/12/17 09:26 Dose: 20 mg Ceftriaxone Sodium (Rocephin 2 Gm Ivpb) 2 gm in 100 mls @ 100 mls/hr IVPB DAILY [facility] PRN Reason: Protocol Stop: 12/21/17 10:01 Last Admin: 12/12/17 09:26 Dose: 100 mls/hr Metronidazole (Flagyl) 500 mg in 100 mls @ 100 mls/hr IVPB Q8 [facility] PRN Reason: Protocol Stop: 12/20/17 22:01 Last Admin: 12/12/17 06:47 Dose: 100 mls/hr Heparin Sodium/Sodium Chloride (Heparin 35147 Units/250ml 1/2 Normal Saline) 25 ,000 units in 250 mls @ 12.41 mls/hr IV .Q20H9M PRN; Protocol; 18 UNITS/KG/HR PRN Reason: ADJUST RATE PER PROTOCOL Last Admin: 12/12/17 09:25 Dose: 18 units/kg/hr, 12.41 mls/hr Insulin Human Regular (Humulin R Low) 0 units SC ACHS [facility] PRN Reason: Protocol Last Admin: 12/12/17 08:24 Dose: Not Given Nystatin (Nystop Topical Powder) 0 gm TOP BID [facility] Verapamil HCl (Calan Sr Tab) 120 mg PO DAILY [facility] Last Admin: 12/12/17 09:40 Dose: 120 mg - Labs Labs: 12/11/17 05:30 12/11/17 05:30 PT 17.6 SECONDS (9.4-12.5) H 12/10/17 10:00 INR 1.52 (0.93-1.08) H 12/10/17 10:00 APTT 34.0 Seconds (25.1-36.5) 12/08/17 21:30 - Constitutional Appears: Well, Non-toxic, No Acute Distress - Head Exam Head Exam: ATRAUMATIC, NORMAL INSPECTION, NORMOCEPHALIC - Eye Exam Eye Exam: EOMI. absent: Scleral icterus - ENT Exam ENT Exam: Mucous Membranes Moist - Respiratory Exam Respiratory Exam: NORMAL BREATHING PATTERN. absent: Accessory Muscle Use, Respiratory Distress - Cardiovascular Exam Cardiovascular Exam: absent: JVD - GI/Abdominal Exam GI & Abdominal Exam: Soft. absent: Distended, Firm, Guarding, Rigid, Tenderness , Rebound Additional comments: Midline abdominal scar and gastrostomy site scar noted. - Extremities Exam Extremities Exam: Normal Inspection. absent: Calf Tenderness - Neurological Exam Neurological Exam: Alert, Awake, Oriented x3 - Psychiatric Exam Psychiatric exam: Normal Affect, Normal Mood - Skin Skin Exam: Dry, Intact, Normal Color, Warm Assessment and Plan - Assessment and Plan (Free Text) Assessment: 82F with cholangitis s/p ERCP with CBD stent on 12/09/17 Plan: - cont IV Abx per ID recs - OR Wednesday, 12/13 for cholecystectomy if pt clinically stable. Consent on chart - NPO past mn - Hold Heparin ggt 6AM on 12/13. - encourage out of bed to chair Further recs as per Dr. Marcio Higuera PGY1 Surgery pager: [phone]
[2017-12-12] MEDS: Digoxin 500 mcg/2ml (0.5 mg/2ml) Inj IV SCH (14:21)
--- NOTE | 2017-12-12 21:58 | PN ---
DATE: 12/12/2017 SUBJECTIVE: The patient has no complaints of any chest pain. No shortness of breath. No headache. PHYSICAL EXAMINATION: VITAL SIGNS: Temperature is 97.8, pulse is 71, blood pressure is 157/80 and respirations are 20. GENERAL: The patient is lying in bed, flat, comfortable. HEENT: No oral lesion. Anicteric sclerae. Moist mucosa. NECK: No JVD, adenopathy, or thyromegaly. CARDIOVASCULAR: S1 and S2, regular. No murmurs, rubs, or gallops. LUNGS: Clear to auscultation bilaterally. No wheeze, rales, or rhonchi. ABDOMEN: Bowel sounds are positive, soft, nontender and nondistended. EXTREMITIES: No cyanosis, clubbing or edema. LABORATORY DATA: White count of 29.3 and hemoglobin 9.9. Creatinine 0.6. ASSESSMENT: 1. Septic shock, improved. 2. Leukocytosis. 3. Diabetes type 2. 4. Atrial fibrillation. 5. Dyslipidemia. 6. Hypoxemia, improved. 7. Transaminitis, improved. 8. Common bile duct stone, status post stent. 9. Hypomagnesemia, improved. 10. Hypophosphatemia, improved. 11. Status post endoscopic retrograde cholangiopancreatography with stent placement. PLAN: The patient is currently comfortable. The patient remains with an elevated white count. He had E. coli bacteremia. The patient being followed by Infectious Disease. She has sensitive E. coli. She is on heparin anticoagulation. She is on Rocephin for antibiotics. The patient is on a liquid diet. I reviewed the notes of the consultants. There is a plan for cholecystectomy to be done tomorrow. We will repeat the patient's blood work tomorrow. Edmond Nixon MD
--- NOTE | 2017-12-12 23:49 | PN ---
DATE: 12/12/2017 SUBJECTIVE: The patient is in bed, in no acute distress. PHYSICAL EXAMINATION: VITAL SIGNS: Temperature is 97, blood pressure is 150/70, and respiratory rate is 28. HEENT: Unremarkable. NECK: Supple. LUNGS: Have decreased breath sounds. HEART: Normal S1 and S2. ABDOMEN: Soft. LABORATORY DATA: Reveals a white count of 9.9 and platelets of 179. Chemistry reveals a BUN of 39, creatinine of 0.8, and procalcitonin of 44. Blood cultures have E. coli. Review of orders reveals the patient to be on Flagyl and ceftriaxone. The patient scheduled tomorrow for OR. ASSESSMENT AND PLAN: This is an 82-year-old female who was seen earlier this morning in [facility], bed 6, clinically stable, awake and alert with a history of healthcare-associated pneumonia, history of pseudomembranous colitis, hypertension, cerebrovascular accident, atrial fibrillation, and coronary artery disease, and admitted on this admission with septic shock with acute cholecystitis with Escherichia coli bacteremia, status post endoscopic retrograde cholangiopancreatography and biliary stent placement, post-procedure day #3. The patient for operative room tomorrow since the Escherichia coli is pansensitive, currently on Rocephin and Flagyl; however, concerned about the persistence of leukocytosis of 29,000 as of yesterday, the patient did have 18% bandemia in the setting of septic shock, currently now the patient is off of pressors, appears to be stable, and doing much better for possible OR cholecystectomy tomorrow. Twan Forrest MD
[2017-12-13] MEDS: metroNIDAZOLE IV 500 mg/100 ml 500 MG/100 ML BAG IVPB SCH ×3 (05:27→21:34)
[2017-12-13 07:11] LABS: BASO # 0.04 K/mm3 (0.0-2.0); BASO % 0.2 % (0.0-3.0); EOS # 0.8 (0.0-0.7); EOS % 4.1 % (1.5-5.0); GRAN # 14.18 (1.4-6.5); GRAN % 75.8 % (50.0-68.0); HEMOGLOBIN 10.3 g/dL (12.0-16.0); LYMPH # 2.4 (1.2-3.4); MEAN CELL VOLUME 77.4 fl (80.0-105.0); MEAN CORPUSCULAR HEMOGLOBIN 23.8 pg (25.0-35.0); MEAN CORPUSCULAR HGB CONC 30.7 g/dl (31.0-37.0); MEAN PLATELET VOLUME 11.8 fl (7.0-11.0); MONO # 1.3 (0.1-0.6); MONO % 6.9 % (1.0-6.0); RBC 4.33 10^6/uL (3.5-6.1); RED CELL DISTRIBUTION WIDTH 19.1 % (11.5-14.5); WHITE BLOOD COUNT 18.7 10^3/ul (4.5-11.0)
[2017-12-13 07:36] LABS: BLOOD UREA NITROGEN 17 mg/dL (7-21); CALCIUM 8.6 mg/dL (8.4-10.5); GFR AFRICAN-AMERICAN > 60; GFR NON-AFRICAN AMERICAN > 60; MAGNESIUM 1.9 mg/dL (1.7-2.2)
[2017-12-13 07:45] LABS: INR 1.13 (0.93-1.08); PARTIAL THROMBOPLASTIN TIME 34.6 Seconds (25.1-36.5)
[2017-12-13] MEDS: Insulin Reg-LOW-Coverage SC SCH ×4 (07:50→21:37)
--- NOTE | 2017-12-13 08:37 | PN ---
DATE: 12/13/2017 SUBJECTIVE: The patient has no complaints of any chest pain. No shortness of breath. No headaches. She states she is feeling better. She is asking to going home. PHYSICAL EXAMINATION: VITAL SIGNS: Temperature is 97.8, pulse of 89, blood pressure 154/77, respirations 20. GENERAL: The patient is lying in bed, flat, comfortable. HEENT: No oral lesion. Anicteric sclerae. Moist mucosa. NECK: No JVD, adenopathy, or thyromegaly. CARDIOVASCULAR: S1 and S2, regular. No murmurs, rubs, or gallops. LUNGS: Clear to auscultation bilaterally. No wheeze, rales, or rhonchi. ABDOMEN: Bowel sounds are positive, soft, nontender and nondistended. EXTREMITIES: No cyanosis, clubbing or edema. LABORATORY DATA: White count of 29.3. ASSESSMENT: 1. Septic shock, improved. 2. Leukocytosis. 3. Diabetes type 2. 4. Atrial fibrillation. 5. Dyslipidemia. 6. Transaminitis, improved. 7. Common bile duct stone, status post stent. 8. Hypomagnesemia, resolved. 9. Hypophosphatemia, resolved. 10. Status post endoscopic retrograde cholangiopancreatography with stent placement. PLAN: The patient is on currently on verapamil for her atrial fibrillation. The patient is receiving Flagyl for antibiotics. She is on statin for her fungal rash. She is on Pepcid daily. She is on Rocephin for antibiotics. The patient is currently off pressors. She is scheduled today for cholecystectomy. The patient's heparin has been placed on hold. Dr. Buckley will be doing the procedure. Edmond Nixon MD
[2017-12-13] MEDS: Verapamil 120 mg ER Tab PO SCH ×2 (10:00→11:23)
--- NOTE | 2017-12-13 10:32 | CP.PCM.PN ---
Subjective - Date & Time of Evaluation Date of Evaluation: 12/13/17 Time of Evaluation: 09:35 - Subjective Subjective: Resting comfortably on a chair, not in distress, afebrile, no abdominal pain currently, no vomiting. Objective - Vital Signs/Intake and Output Vital Signs (last 24 hours): Temp Pulse Resp BP Pulse Ox 97.8 F 79 18 141/91 H 99 12/12/17 06:00 12/13/17 05:50 12/13/17 05:50 12/13/17 05:00 12/13/17 05:50 Intake and Output: 12/12/17 12/13/17 18:59 06:59 Intake Total 1508 559 Output Total 1600 950 Balance -92 -391 - Medications Medications: Current Medications Digoxin (Lanoxin) 0.125 mg IV 1400 [facility] Last Admin: 12/12/17 14:21 Dose: 0.125 mg Famotidine (Pepcid) 20 mg IVP DAILY [facility] Last Admin: 12/12/17 09:26 Dose: 20 mg Ceftriaxone Sodium (Rocephin 2 Gm Ivpb) 2 gm in 100 mls @ 100 mls/hr IVPB DAILY [facility] PRN Reason: Protocol Stop: 12/21/17 10:01 Last Admin: 12/12/17 09:26 Dose: 100 mls/hr Metronidazole (Flagyl) 500 mg in 100 mls @ 100 mls/hr IVPB Q8 [facility] PRN Reason: Protocol Stop: 12/20/17 22:01 Last Admin: 12/13/17 05:27 Dose: 100 mls/hr Heparin Sodium/Sodium Chloride (Heparin 74489 Units/250ml 1/2 Normal Saline) 25 ,000 units in 250 mls @ 12.41 mls/hr IV .Q20H9M PRN; Protocol; 18 UNITS/KG/HR PRN Reason: ADJUST RATE PER PROTOCOL Last Titration: 12/12/17 23:48 Dose: 16.96 units/kg/hr, 11.7 mls/hr Insulin Human Regular (Humulin R Low) 0 units SC ACHS [facility] PRN Reason: Protocol Last Admin: 12/12/17 21:56 Dose: Not Given Nystatin (Nystop Topical Powder) 0 gm TOP BID [facility] Last Admin: 12/12/17 17:23 Dose: 1 pow Verapamil HCl (Calan Sr Tab) 120 mg PO DAILY [facility] Last Admin: 12/12/17 09:40 Dose: 120 mg - Labs Labs: 12/11/17 05:30 12/11/17 05:30 PT 17.6 SECONDS (9.4-12.5) H 12/10/17 10:00 INR 1.52 (0.93-1.08) H 12/10/17 10:00 APTT 148.5 Seconds (25.1-36.5) H* 12/12/17 21:55 - Constitutional Appears: Chronically Ill - Head Exam Head Exam: NORMAL INSPECTION - ENT Exam ENT Exam: Mucous Membranes Moist - Neck Exam Neck Exam: absent: Meningismus - Respiratory Exam Respiratory Exam: Decreased Breath Sounds - Cardiovascular Exam Cardiovascular Exam: +S1, +S2 - GI/Abdominal Exam GI & Abdominal Exam: Soft. absent: Tenderness Assessment and Plan - Assessment and Plan (Free Text) Plan: Assessment Severe sepsis/ S/P septic shock from acute cholecystitis with E. 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
[2017-12-13] MEDS: cefTRIAXone 2 GM IN NS 2 GM/100 ML BAG IVPB SCH (11:13)
[2017-12-13] MEDS: Nystatin 100,000 Units/gm Topical Pow(15 gm) TOP SCH ×2 (11:16→17:19)
[2017-12-13] MEDS: Digoxin 500 mcg/2ml (0.5 mg/2ml) Inj IV SCH (14:55)
[2017-12-14] MEDS: metroNIDAZOLE IV 500 mg/100 ml 500 MG/100 ML BAG IVPB SCH ×3 (06:51→22:07)
[2017-12-14] MEDS: Insulin Reg-LOW-Coverage SC SCH ×4 (07:34→22:00)
[2017-12-14 07:41] LABS: HEMOGLOBIN 11.2 g/dL (12.0-16.0); MEAN CELL VOLUME 77.8 fl (80.0-105.0); MEAN CORPUSCULAR HEMOGLOBIN 23.7 pg (25.0-35.0); MEAN CORPUSCULAR HGB CONC 30.4 g/dl (31.0-37.0); PLATELET COUNT 259 10^3/uL (120.0-450.0); RBC 4.73 10^6/uL (3.5-6.1); RED CELL DISTRIBUTION WIDTH 18.9 % (11.5-14.5); WHITE BLOOD COUNT 12.9 10^3/ul (4.5-11.0)
[2017-12-14] MEDS: Verapamil 120 mg ER Tab PO SCH ×2 (07:49→09:26)
[2017-12-14 07:57] LABS: BLOOD UREA NITROGEN 19 mg/dL (7-21); CALCIUM 8.8 mg/dL (8.4-10.5); GFR AFRICAN-AMERICAN > 60; GFR NON-AFRICAN AMERICAN > 60
[2017-12-14] MEDS ORDERED: Iohexol 240 (50 ml) ONE (10:11)
[2017-12-14] MEDS ORDERED: Bupivacaine 0.5% Inj(30mL) ONE (10:11)
[2017-12-14] MEDS ORDERED: Midazolam 2 MG/2 ML VIAL ONE (10:39)
[2017-12-14] MEDS ORDERED: Rocuronium 10 mg/ml (5 ml) ONE (10:42)
[2017-12-14] MEDS ORDERED: ePHEDrine 50 mg/ml Inj ONE (10:42)
[2017-12-14] MEDS ORDERED: Etomidate 20 mg/10ml Inj IV ONE (10:42)
[2017-12-14] MEDS: Nystatin 100,000 Units/gm Topical Pow(15 gm) TOP SCH ×2 (10:50→17:01)
--- NOTE | 2017-12-14 11:45 | PN ---
DATE: 12/14/2017 SUBJECTIVE: The patient has no complaints of any chest pain. No shortness of breath. No headaches or dizziness. PHYSICAL EXAMINATION: VITAL SIGNS: Temperature is 98.3, pulse is 57, blood pressure is 136/54, and respiration is 17. GENERAL: The patient is lying in bed, flat, comfortable. HEENT: No oral lesion. Anicteric sclerae. Moist mucosa. NECK: No JVD, adenopathy, or thyromegaly. CARDIOVASCULAR: S1 and S2, regular. No murmurs, rubs, or gallops. LUNGS: Clear to auscultation bilaterally. No wheeze, rales, or rhonchi. ABDOMEN: Bowel sounds are positive, soft, nontender and nondistended. EXTREMITIES: No cyanosis, clubbing or edema. LABORATORY DATA: White count of 18.7, hemoglobin 10.3, creatinine 0.7. ASSESSMENT: 1. Septic shock, improved. 2. Leukocytosis, improving. 3. Sepsis secondary to Escherichia coli. 4. Status post endoscopic retrograde cholangiopancreatography and stent placement. 5. Diabetes type 2. 6. Atrial fibrillation. 7. Dyslipidemia. 8. Transaminitis, improved. 9. Common bile duct stones. 10. Hypomagnesemia, improved. 11.. Hypophosphatemia, improved. PLAN: The patient is awaiting surgery for cholecystectomy. She is receiving verapamil for her atrial fibrillation. She is on Flagyl. The patient is receiving IV digoxin. She is being followed by Cardiology. The patient is also on metoprolol and the patient was having episodes of tachycardia yesterday, so the surgery was not done. She is on Rocephin for antibiotics. The patient is on a heart-healthy diet. She remains in the ICU. We will continue to follow closely. I did speak to ____, the patient's primary care doctor to her give her an update on the patient's diagnosis and plan of care. Edmond Nixon MD
[2017-12-14] MEDS ORDERED: Bupivacaine 0.25% Inj(30mL) ONE (12:37)
[2017-12-14] MEDS ORDERED: HYDROmorphone 0.5 mg/0.5 ml ISec IVP PRN (12:48)
[2017-12-14] MEDS ORDERED: Glycopyrrolate 0.2 mg/ml (2ml vial) ONE (12:54)
[2017-12-14] MEDS ORDERED: Neostigmine Methylsulfate 3mg/3ml Syringe IV ONE (12:56)
[2017-12-14] MEDS ORDERED: Lactated Ringer's 1,000 ML IV SCH (13:00)
[2017-12-14] MEDS ORDERED: Propofol 10 mg/ml Inj (20 ML) ONE (13:07)
[2017-12-14] MEDS ORDERED: Oxycodone/Acetaminophen 5/325 mg Tab PO PRN (13:24)
--- NOTE | 2017-12-14 13:27 | PCM.SURG1 ---
Surgeon's Initial Post Op Note - Surgeon's Notes Surgeon: Dr. Buckley Breaker Machine Operator: Dr. Santacruz PGY-3, Dr. Albarran PGY-3, Shantelle MS3 Type of Anesthesia: General Endo Anesthesia Administered By: Dr. Mckeon Pre-Operative Diagnosis: Acute on Chronic Cholecystitis Operative Findings: See operative report Post-Operative Diagnosis: Same Operation Performed: Laparoscopic converted to open cholecystectomy, Ventral hernia repair with mesh Specimen/Specimens Removed: Gallbladder Estimated Blood Loss: EBL {In ML}: 50 Blood Products Given: N/A Drains Used: No Drains Post-Op Condition: Good Date of Surgery/Procedure: 12/14/17 Time of Surgery/Procedure: 13:27
[2017-12-14] MEDS: Digoxin 500 mcg/2ml (0.5 mg/2ml) Inj IV SCH ×2 (14:10→18:41)
[2017-12-14] MEDS: HYDROmorphone 0.5 mg/0.5 ml ISec IVP PRN (15:07)
[2017-12-14] MEDS: Lactated Ringer's 1,000 ML IV SCH ×2 (15:10→23:00)
[2017-12-14] MEDS: cefTRIAXone 2 GM IN NS 2 GM/100 ML BAG IVPB SCH (15:11)
[2017-12-14] MEDS: HYDROmorphone 1 mg/ml ISec IVP PRN (16:58)
--- NOTE | 2017-12-14 17:35 | RAD ---
PROCEDURE: Abdomen single view HISTORY: R/O FOREIGN BODY ( TOWEL CLAMP) COMPARISON: TECHNIQUE: Single portable film in the OR FINDINGS: There is no evidence of a surgical instrument. Surgical clips are seen in the midline. A biliary catheter is seen in the right upper quadrant. Calcifications are seen in the pelvis. IMPRESSION: No evidence of surgical instrument
--- NOTE | 2017-12-15 00:23 | PN ---
DATE: 12/14/2017 The patient was seen earlier this morning in 128, bed 6. SUBJECTIVE: The patient is seen in bed, in the ICU, doing well. No fevers and no chills. PHYSICAL EXAMINATION: VITAL SIGNS: Temperature is 98, blood pressure is 130/70, and respiratory rate of 16. HEENT: Unremarkable. NECK: Supple. LUNGS: Decreased breath sounds. HEART: Normal S1 and S2. ABDOMEN: Soft, nontender. LABORATORY DATA: Reveals a white count of 12,900, hemoglobin of 11, and platelets of 259. Chemistries are reviewed, BUN of 19, creatinine of 0.7. Urinalysis is noted and toxicology is noted. Serology is negative. Microbiology reveals the patient has E. coli in the blood and is pansensitive. Review of the operative report reveals the patient with an open cholecystectomy and ventral hernia repair with a mesh. ASSESSMENT AND PLAN: This is an 82-year-old female was seen in the ICU 128, bed 6, earlier this morning, clinically stable, doing well, awake and alert, admitted with septic shock with E. coli bacteremia secondary to acute cholecystitis, now status post ERCP, postprocedure day #4, and today the patient is scheduled for open cholecystectomy, originally for laparoscopic cholecystectomy, now with an open cholecystectomy and currently on ceftriaxone and Flagyl. We will be able to switch her to p.o. antibiotics once the patient is able to tolerate p.o. Twan Forrest MD
[2017-12-15] MEDS: HYDROmorphone 0.5 mg/0.5 ml ISec IVP PRN ×2 (04:48→11:57)
[2017-12-15] MEDS: metroNIDAZOLE IV 500 mg/100 ml 500 MG/100 ML BAG IVPB SCH ×3 (05:12→22:16)
[2017-12-15 06:28] LABS: HEMOGLOBIN 10.2 g/dL (12.0-16.0); MEAN CELL VOLUME 76.2 fl (80.0-105.0); MEAN CORPUSCULAR HEMOGLOBIN 23.8 pg (25.0-35.0); MEAN CORPUSCULAR HGB CONC 31.3 g/dl (31.0-37.0); MEAN PLATELET VOLUME 11.2 fl (7.0-11.0); RBC 4.28 10^6/uL (3.5-6.1); RED CELL DISTRIBUTION WIDTH 19.4 % (11.5-14.5); WHITE BLOOD COUNT 14.8 10^3/ul (4.5-11.0)
[2017-12-15 06:42] LABS: BLOOD UREA NITROGEN 15 mg/dL (7-21); CALCIUM 8.4 mg/dL (8.4-10.5); GFR AFRICAN-AMERICAN > 60; GFR NON-AFRICAN AMERICAN > 60
--- NOTE | 2017-12-15 06:59 | PN ---
DATE: 12/15/2017 SUBJECTIVE: The patient has no complaints of any chest pain. No shortness of breath. No headache. PHYSICAL EXAMINATION: VITAL SIGNS: Temperature is 99, pulse of 98, blood pressure 132/92, respirations 19. GENERAL: The patient is lying in bed, flat, comfortable. HEENT: No oral lesion. Anicteric sclerae. Moist mucosa. NECK: No JVD, adenopathy, or thyromegaly. CARDIOVASCULAR: S1 and S2, regular. No murmurs, rubs, or gallops. LUNGS: Clear to auscultation bilaterally. No wheeze, rales, or rhonchi. ABDOMEN: Bowel sounds are positive, soft, nontender and nondistended. EXTREMITIES: No cyanosis, clubbing or edema. LABORATORY DATA: White count of 12.9, hemoglobin 11.2, creatinine 0.7. ASSESSMENT: 1. Ventral hernia, status post repair, postoperative day #1. 2. Status post cholecystectomy, open, postoperative day #1. 3. Septic shock secondary to Escherichia coli, improved. 4. Leukocytosis, improving. 5. Status post endoscopic retrograde cholangiopancreatography with stent placement. 6. Diabetes type 2. 7. Atrial fibrillation. 8. Dyslipidemia. 9. Transaminitis. 10. Common bile duct stone. 11. Hypomagnesemia, improved. 12. Hypophosphatemia, improved. PLAN: The patient is currently comfortable. She had surgery done yesterday. The pain is controlled. I did review the operative note. The patient has been followed by Dr. Forrest from Infectious Disease. The patient can be switched over to p.o. antibiotics at this point. The patient is on verapamil. She is going to continue with Dilaudid for pain. She is on heparin. The patient is on IV fluids with lactated Ringer's. The patient is on metoprolol. She is going to continue with Zofran. She is on liquid diet. She can be downgraded to out of the ICU. She will need physical therapy. She continues to make improvement. I did speak to the patient's yesterday to give him an update on the patient's diagnoses and plan of care. Edmond Nixon MD [facility] # [id number]
[2017-12-15] MEDS: Insulin Reg-LOW-Coverage SC SCH ×4 (08:20→22:35)
[2017-12-15] MEDS: Verapamil 120 mg ER Tab PO SCH (09:26)
[2017-12-15] MEDS: Nystatin 100,000 Units/gm Topical Pow(15 gm) TOP SCH (09:28)
[2017-12-15] MEDS: cefTRIAXone 2 GM IN NS 2 GM/100 ML BAG IVPB SCH (10:23)
--- NOTE | 2017-12-15 10:31 | OP ---
PROCEDURE DATE: 12/13/2017 PREOPERATIVE DIAGNOSES: Acute cholecystitis with common duct stone. POSTOPERATIVE DIAGNOSES: Acute cholecystitis with common duct stone. OPERATION PERFORMED: Laparoscopy followed by an open cholecystectomy and ventral hernia repair. PROCEDURE: In the operating room, the patient was identified by name, name of the procedure, laterality, my daphne, her date and number. After the successful time-out, the abdomen having been prepped and draped with chlorhexidine, the abdomen was entered. There was known hernia in the midline area and this was elected as a port site. The midline incision was opened through a dissection into the peritoneal cavity. The trocar was placed. There was no free space into the liver area and after some rapid dissection, it was elected to open up through the ventral hernia, which would be repaired at the end. Lysis of the extensive adhesions of the right upper quadrant was accomplished relatively quickly. The Bookwalter was placed. The gallbladder was distended somewhat inflamed. It was emptied of dark bilious material. Culture grow aerobically and anaerobically. Drawing up at the right angle, the gallbladder was pulled up and the area was packed. Bookwalter used . During the dissection, we were freely able to separate the gallbladder from the common duct, which was readily palpable and firm, obviously stones with in addition to the stump. Starting at the top of the gallbladder, the fundus was with cautery dissection followed by some blunt dissection, there was little bit of bleeding, but it rapidly stopped with little bit of pressure. During up on the gallbladder, there was some peritoneum between the presumptive artery in the presumptive cystic duct, this was lysed and the area was . The anterior structure that was initially believed to be the cystic duct was actually cystic artery. The cystic duct being little bit more posterior, this was done during the sharp cautery and blunt dissection. The cystic artery and cystic duct were both circumscribed with chromic, cystic artery doubly clipped and divided. Cystic duct was identified, cleaned into the right angle, doubly tied with chromic. Gallbladder was removed. There was nothing else untoward, the abdomen was cleaned and dried. Minimal contamination if at all. Dissection of the hernia sac revealed it to be larger than initially anticipated. We tried lateral dissection on both sides to mobilize it, however, it will not come together nicely at all. Ventralex patch was placed with the cortex side down towards the intestine. It was suture in place with four parachute type stitches to the mesh and widely stapled. This was done after considerable discussion. There was no absorbable mesh available. Incision was closed with Vicryl followed by racheal, light pressure dressing was applied. No drains were placed. The patient was taken to the recovery room in good condition after sponge and needle counts were declared as correct. Lance Buckley MD
[2017-12-15] MEDS: Metoprolol 1 mg/ml Inj IVP SCH ×2 (13:17→17:48)
[2017-12-15] MEDS: Digoxin 500 mcg/2ml (0.5 mg/2ml) Inj IV SCH (13:49)
--- NOTE | 2017-12-15 13:58 | PN ---
DATE: 12/15/2017 SUBJECTIVE: The patient is in bed, was seen early this morning. No fever or chills. PHYSICAL EXAMINATION: VITAL SIGNS: Temperature is 98, blood pressure is , respiratory rate of 21, and heart rate of 130. HEENT: Unremarkable. NECK: Supple. LUNGS: Have decreased breath sounds. HEART: Normal S1 and S2. ABDOMEN: Soft and nontender. LABORATORY DATA: Reveals white count is down to 14,800. Chemistries; BUN of 15 and creatinine of 0.7. Urinalysis is noted. Toxicology is noted. Serology is noted. Microbiology reveals E. coli in the blood, which is pansensitive. ASSESSMENT AND PLAN: This is an 82-year-old female with past medical history significant for clinically stable, doing well, awake and alert, who is admitted initially with underlying septic shock, Escherichia coli bacteremia secondary to acute cholecystitis, status post endoscopic retrograde cholangiopancreatography, postprocedure day #5, now the patient is status post open cholecystectomy postoperative day #1 on ceftriaxone and Flagyl may be able to switch to p.o. antibiotics upon discharge. The patient did have pansensitive Escherichia coli. Twan Forrest MD
--- NOTE | 2017-12-15 16:00 | PN ---
DATE: 12/15/2017 SUBJECTIVE: The patient is seen lying in bed in the ICU. She appears fairly comfortable. She underwent open cholecystectomy and ventral hernia repair yesterday. She states that she feels somewhat hungry. OBJECTIVE: VITAL SIGNS: Blood pressure is 126/86 with a pulse of 120-140 in atrial fibrillation, respirations are 14. She is afebrile. HEENT: No JVD. CHEST: Bilateral scattered rhonchi. HEART: PMI displaced laterally with an irregular regular rhythm. ABDOMEN: Soft, mildly distended with mild diffuse tenderness. Bowel sounds are present. EXTREMITIES: No edema. DIAGNOSTIC DATA: Potassium is 4.8, BUN and creatinine 15 and 0.7. White count is 14.8, hemoglobin 10.2 and hematocrit 32.6 with platelet count of 290,000. IMPRESSION: 1. Status post biliary sepsis clinically improved. 2. Status post open cholecystectomy. 3. Chronic atrial fibrillation with suboptimal heart rate control. 4. Mitral regurgitation and tricuspid regurgitation. RECOMMENDATIONS: Once oral intake resumes, oral rate control therapy will be initiated. IV heparin should continue for anticoagulant purposes. The patient should be gotten out of bed. For now, IV beta solomon therapy will be continued for heart rate control. We will continue to follow and make further recommendations as appropriate. Donovan Tolentino MD
--- NOTE | 2017-12-15 16:12 | CP.PCM.PN ---
Subjective - Date & Time of Evaluation Date of Evaluation: 12/15/17 Time of Evaluation: 09:00 - Subjective Subjective: Surgery: Dr. Buckley Pt seen and examined. s/p cholecystectomy POD#1. Pt states pain is well controlled. She is tolerating liquids and denies N/V, F/C. Objective - Vital Signs/Intake and Output Vital Signs (last 24 hours): Temp Pulse Resp BP Pulse Ox 99 F 74 20 119/67 95 12/15/17 03:47 12/15/17 16:00 12/15/17 16:00 12/15/17 13:17 12/15/17 16:00 - Medications Medications: Current Medications Digoxin (Lanoxin) 0.125 mg IV 1400 [facility] Last Admin: 12/15/17 13:49 Dose: 0.125 mg Famotidine (Pepcid) 20 mg IVP DAILY [facility] Last Admin: 12/15/17 09:26 Dose: 20 mg Hydromorphone HCl (Dilaudid) 0.5 mg IVP Q4H PRN PRN Reason: Pain, moderate (4-7) Last Admin: 12/15/17 11:57 Dose: 0.5 mg Hydromorphone HCl (Dilaudid) 1 mg IVP Q4H PRN PRN Reason: Pain, severe (8-10) Last Admin: 12/14/17 16:58 Dose: 1 mg Ceftriaxone Sodium (Rocephin 2 Gm Ivpb) 2 gm in 100 mls @ 100 mls/hr IVPB DAILY [facility] PRN Reason: Protocol Stop: 12/21/17 10:01 Last Admin: 12/15/17 10:23 Dose: 100 mls/hr Metronidazole (Flagyl) 500 mg in 100 mls @ 100 mls/hr IVPB Q8 [facility] PRN Reason: Protocol Stop: 12/20/17 22:01 Last Admin: 12/15/17 13:49 Dose: 100 mls/hr Heparin Sodium/Sodium Chloride (Heparin 23514 Units/250ml 1/2 Normal Saline) 25 ,000 units in 250 mls @ 12.41 mls/hr IV .Q20H9M PRN; Protocol; 18 UNITS/KG/HR PRN Reason: ADJUST RATE PER PROTOCOL Last Titration: 12/12/17 23:48 Dose: 16.96 units/kg/hr, 11.7 mls/hr Insulin Human Regular (Humulin R Low) 0 units SC ACHS [facility] PRN Reason: Protocol Last Admin: 12/15/17 12:16 Dose: 3 units Metoprolol Tartrate (Lopressor) 25 mg PO BID [facility] Last Admin: 12/15/17 09:27 Dose: 25 mg Metoprolol Tartrate (Lopressor) 5 mg IVP Q6H [facility] Last Admin: 12/15/17 13:17 Dose: 5 mg Nystatin (Nystop Topical Powder) 0 gm TOP BID [facility] Last Admin: 12/15/17 09:28 Dose: 1 applic Ondansetron HCl (Zofran Inj) 4 mg IVP Q4H PRN PRN Reason: Nausea/Vomiting Oxycodone/Acetaminophen (Percocet 5/325 Mg Tab) 1 tab PO Q4H PRN PRN Reason: Pain, Mild (1-3) Stop: 12/17/17 13:25 Verapamil HCl (Calan Sr Tab) 120 mg PO DAILY [facility] Last Admin: 12/15/17 09:26 Dose: 120 mg - Labs Labs: 12/15/17 06:00 12/15/17 06:00 PT 13.0 SECONDS (9.4-12.5) H 12/13/17 06:30 INR 1.13 (0.93-1.08) H 12/13/17 06:30 APTT 34.6 Seconds (25.1-36.5) 12/13/17 06:30 - Constitutional Appears: Well, No Acute Distress - Head Exam Head Exam: ATRAUMATIC, NORMOCEPHALIC - Eye Exam Eye Exam: Normal appearance - ENT Exam ENT Exam: Mucous Membranes Moist - Cardiovascular Exam Cardiovascular Exam: RRR - GI/Abdominal Exam GI & Abdominal Exam: Soft, Tenderness (around midline incision, dressing C/D/I ) . absent: Distended, Rebound - Neurological Exam Neurological Exam: Alert, Awake, Oriented x3 - Skin Skin Exam: Dry, Warm Assessment and Plan - Assessment and Plan (Free Text) Assessment: 82F s/p lap surendra converted to open & ventral hernia repair with mesh; POD#1 Plan: - will slowly advance diet as tolerated - cont IV ABX - encourage ambulation with PT, IS - d/w Dr. Marcio Santacruz, PGY-3 Surgery
[2017-12-15] MEDS: Heparin25000 units/250ml 1/2NS 25,000 UNITS/250 ML BAG IV PRN (21:04)
[2017-12-15] MEDS: HYDROmorphone 1 mg/ml ISec IVP PRN (21:07)
[2017-12-16] MEDS: Metoprolol 1 mg/ml Inj IVP SCH ×3 (00:15→06:13)
[2017-12-16] MEDS: metroNIDAZOLE IV 500 mg/100 ml 500 MG/100 ML BAG IVPB SCH ×2 (05:44→06:31)
--- NOTE | 2017-12-16 07:01 | PN ---
DATE: 12/16/2017 SUBJECTIVE: The patient has no complaints of any chest pain. No shortness of breath. No headaches or dizziness. PHYSICAL EXAMINATION: VITAL SIGNS: Temperature is 98, pulse is 70, blood pressure is 112/67, respiration is 20. GENERAL: The patient is lying in bed, flat, comfortable. HEENT: No oral lesion. Anicteric sclerae. Moist mucosa. NECK: No JVD, adenopathy, or thyromegaly. CARDIOVASCULAR: S1 and S2, regular. No murmurs, rubs, or gallops. LUNGS: Clear to auscultation bilaterally. No wheeze, rales, or rhonchi. ABDOMEN: Bowel sounds are positive, soft, nontender and nondistended. EXTREMITIES: No cyanosis, clubbing or edema. LABORATORY DATA: The labs have been reviewed. ASSESSMENT: 1. Ventral hernia, status post repair, postoperative day #2. 2. Status post open cholecystectomy, postoperative day #2. 3. Septic shock secondary to Escherichia coli, resolved. 4. Leukocytosis, improving. 5. Status post endoscopic retrograde cholangiopancreatography with stent placement. 6. Diabetes type 2. 7. Atrial fibrillation. 8. Dyslipidemia. 9. Transaminitis. 10. Common bile duct stone. 11. Hypomagnesemia, improved. 12. Hypophosphatemia, improved. PLAN: The patient is currently comfortable. Pain is controlled. She is waiting for physical therapy to get started. She may need Transitional Care Unit. The patient is on Flagyl. She is going to continue with Dilaudid for pain. She is on digoxin for her atrial fibrillation. The patient is on Pepcid daily. She is receiving Rocephin for antibiotics. She is on a liquid diet. She is being followed by Surgery. I did review their report. The patient is also being seen by Dr. Forrest. I have reviewed his notes as well. Edmond Nixon MD
--- NOTE | 2017-12-16 07:43 | CP.PCM.PN ---
Subjective - Date & Time of Evaluation Date of Evaluation: 12/16/17 Time of Evaluation: 07:00 - Subjective Subjective: Stable on 3R now. No CP or SOB. She feels OK. taking PO. V/S noted. AF, mod. VR. PE: Lungs: clear Cor: irreg, sys murmur Abd.: soft Ext. no edema Neuro: alert I/O= 920/680 recorded Labs 12/15 noted. BC x2 + E. coli Echo: Nl LV fx., Mild/Mod. MR, Severe TR, mod/sev PH Objective - Vital Signs/Intake and Output Vital Signs (last 24 hours): Temp Pulse Resp BP Pulse Ox 98.6 F 60 18 99/77 L 97 12/16/17 06:00 12/16/17 06:13 12/16/17 06:00 12/16/17 06:13 12/16/17 06:00 - Medications Medications: Current Medications Digoxin (Lanoxin) 0.125 mg PO 1400 [facility] Famotidine (Pepcid) 20 mg IVP DAILY [facility] Last Admin: 12/15/17 09:26 Dose: 20 mg Hydromorphone HCl (Dilaudid) 0.5 mg IVP Q4H PRN PRN Reason: Pain, moderate (4-7) Last Admin: 12/15/17 11:57 Dose: 0.5 mg Hydromorphone HCl (Dilaudid) 1 mg IVP Q4H PRN PRN Reason: Pain, severe (8-10) Last Admin: 12/15/17 21:07 Dose: 1 mg Ceftriaxone Sodium (Rocephin 2 Gm Ivpb) 2 gm in 100 mls @ 100 mls/hr IVPB DAILY [facility] PRN Reason: Protocol Stop: 12/21/17 10:01 Last Admin: 12/15/17 10:23 Dose: 100 mls/hr Metronidazole (Flagyl) 500 mg in 100 mls @ 100 mls/hr IVPB Q8 [facility] PRN Reason: Protocol Stop: 12/20/17 22:01 Last Admin: 12/16/17 06:31 Dose: 100 mls/hr Heparin Sodium/Sodium Chloride (Heparin 08735 Units/250ml 1/2 Normal Saline) 25 ,000 units in 250 mls @ 12.41 mls/hr IV .Q20H9M PRN; Protocol; 18 UNITS/KG/HR PRN Reason: ADJUST RATE PER PROTOCOL Last Admin: 12/15/17 21:04 Dose: 16.96 units/kg/hr, 11.7 mls/hr Insulin Human Regular (Humulin R Low) 0 units SC ACHS [facility] PRN Reason: Protocol Last Admin: 12/15/17 22:35 Dose: Not Given Metoprolol Tartrate (Lopressor) 25 mg PO BID [facility] Last Admin: 12/15/17 17:48 Dose: 25 mg Metoprolol Tartrate (Lopressor) 5 mg IVP Q6H [facility] Last Admin: 12/16/17 06:13 Dose: Not Given Nystatin (Nystop Topical Powder) 0 gm TOP BID [facility] Last Admin: 12/15/17 09:28 Dose: 1 applic Ondansetron HCl (Zofran Inj) 4 mg IVP Q4H PRN PRN Reason: Nausea/Vomiting Oxycodone/Acetaminophen (Percocet 5/325 Mg Tab) 1 tab PO Q4H PRN PRN Reason: Pain, Mild (1-3) Stop: 12/17/17 13:25 Verapamil HCl (Calan Sr Tab) 120 mg PO DAILY [facility] Last Admin: 12/15/17 09:26 Dose: 120 mg - Labs Labs: 12/15/17 06:00 12/15/17 06:00 PT 13.0 SECONDS (9.4-12.5) H 12/13/17 06:30 INR 1.13 (0.93-1.08) H 12/13/17 06:30 APTT 58.9 Seconds (25.1-36.5) H 12/16/17 03:05 Assessment and Plan - Assessment and Plan (Free Text) Assessment: Weak/Lethargy/Fever initially Acute cholecystitis with septic shock, E. coli sepsis /s/p ERCP with biliary stent 12/09/17, S/P open Alexandra with ventral hernia repair 12/15/17. Gall Stones AF with RVR HBP Diabetes HLD CVA Anemia CVD Paramjit. THR Plan: As per GI and surgery. IV Heparin for AF, start coumadin if OK with surgery. Daily INR's Digoxin 0.125 PO daily PO Verapamil and metoprolol for rate control. AB as per ID. OOB as omkar./ PT Will follow.
[2017-12-16] MEDS: Verapamil 120 mg ER Tab PO SCH ×2 (08:35→10:13)
[2017-12-16] MEDS: Insulin Reg-LOW-Coverage SC SCH ×4 (08:35→21:33)
[2017-12-16] MEDS ORDERED: Vitamin A/D oint 60G TP SCH (08:45)
[2017-12-16] MEDS: Vitamins A & D Oint UD Foilpak TOP SCH ×2 (10:20→17:57)
[2017-12-16] MEDS: Nystatin 100,000 Units/gm Topical Pow(15 gm) TOP SCH ×2 (13:49→17:56)
[2017-12-16] MEDS: Heparin25000 units/250ml 1/2NS 25,000 UNITS/250 ML BAG IV PRN (14:25)
[2017-12-16] MEDS: cefTRIAXone 2 GM IN NS 2 GM/100 ML BAG IVPB SCH (14:27)
[2017-12-16] MEDS: Digoxin 125 mcg (0.125 mg) Tab PO SCH (14:27)
[2017-12-16 19:22] LABS: URINE BILIRUBIN NEGATIVE (NEGATIVE); URINE BLOOD NEGATIVE (NEGATIVE); URINE GLUCOSE (UA) >=1000 mg/dL (NEGATIVE); URINE LEUKOCYTE ESTERASE TRACE Leu/uL (NEGATIVE); URINE NITRATE NEGATIVE (NEGATIVE); URINE PROTEIN TRACE mg/dL (<30 mg/dL); URINE UROBILINOGEN 0.2 E.U./dL (<1 E.U./dL)
[2017-12-16 19:38] LABS: URINE APPEARANCE CLEAR (CLEAR); URINE COLOR YELLOW (YELLOW)
[2017-12-16 19:43] LABS: URINE EPITHELIAL CELLS MANY /hpf (0-5); URINE RBC 0 - 2 /hpf (0-2)
--- NOTE | 2017-12-16 20:21 | CP.PCM.PN ---
Subjective - Date & Time of Evaluation Date of Evaluation: 12/16/17 Time of Evaluation: 07:00 - Subjective Subjective: Surgery: Dr. Buckley Pt seen and examined. No acute overnight events. States she feels ok. Admits to tolerating liquids, denies N/V, F/C. Objective - Vital Signs/Intake and Output Vital Signs (last 24 hours): Temp Pulse Resp BP Pulse Ox 98 F 80 20 116/69 96 12/16/17 16:00 12/16/17 18:00 12/16/17 16:00 12/16/17 16:00 12/16/17 16:00 Intake and Output: 12/16/17 12/17/17 18:59 06:59 Intake Total 250 Balance 250 - Medications Medications: Current Medications Digoxin (Lanoxin) 0.125 mg PO 1400 [facility] Last Admin: 12/16/17 14:27 Dose: 0.125 mg Famotidine (Pepcid) 20 mg PO DAILY [facility] Hydromorphone HCl (Dilaudid) 0.5 mg IVP Q4H PRN PRN Reason: Pain, moderate (4-7) Last Admin: 12/15/17 11:57 Dose: 0.5 mg Hydromorphone HCl (Dilaudid) 1 mg IVP Q4H PRN PRN Reason: Pain, severe (8-10) Last Admin: 12/15/17 21:07 Dose: 1 mg Ceftriaxone Sodium (Rocephin 2 Gm Ivpb) 2 gm in 100 mls @ 100 mls/hr IVPB DAILY [facility] PRN Reason: Protocol Stop: 12/21/17 10:01 Last Admin: 12/16/17 14:27 Dose: 100 mls/hr Heparin Sodium/Sodium Chloride (Heparin 19970 Units/250ml 1/2 Normal Saline) 25 ,000 units in 250 mls @ 12.41 mls/hr IV .Q20H9M PRN; Protocol; 18 UNITS/KG/HR PRN Reason: ADJUST RATE PER PROTOCOL Last Admin: 12/16/17 14:25 Dose: 14.96 units/kg/hr, 10.314 mls/hr Insulin Human Regular (Humulin R Low) 0 units SC ACHS [facility] PRN Reason: Protocol Last Admin: 12/16/17 17:55 Dose: 3 units Linezolid (Zyvox) 600 mg PO BID [facility] PRN Reason: Protocol Stop: 12/25/17 11:01 Last Admin: 12/16/17 18:04 Dose: 600 mg Metoprolol Tartrate (Lopressor) 25 mg PO BID [facility] Last Admin: 12/16/17 17:53 Dose: 25 mg Nystatin (Nystop Topical Powder) 0 gm TOP BID [facility] Last Admin: 12/16/17 17:56 Dose: 1 applic Ondansetron HCl (Zofran Inj) 4 mg IVP Q4H PRN PRN Reason: Nausea/Vomiting Oxycodone/Acetaminophen (Percocet 5/325 Mg Tab) 1 tab PO Q4H PRN PRN Reason: Pain, Mild (1-3) Stop: 12/17/17 13:25 Last Admin: 12/16/17 18:04 Dose: 1 tab Verapamil HCl (Calan Sr Tab) 120 mg PO DAILY [facility] Last Admin: 12/16/17 10:13 Dose: Not Given Vitamin A (Vitamin A & D Oint Ud Foilpak) 1 ea TOP Q8H [facility] Last Admin: 12/16/17 17:57 Dose: 1 ea - Labs Labs: 12/15/17 06:00 12/15/17 06:00 PT 13.0 SECONDS (9.4-12.5) H 12/13/17 06:30 INR 1.13 (0.93-1.08) H 12/13/17 06:30 APTT 71.3 Seconds (25.1-36.5) H 12/16/17 16:34 - Constitutional Appears: Well, No Acute Distress - Eye Exam Eye Exam: Normal appearance - ENT Exam ENT Exam: Mucous Membranes Moist - Respiratory Exam Respiratory Exam: NORMAL BREATHING PATTERN - Cardiovascular Exam Cardiovascular Exam: RRR - GI/Abdominal Exam GI & Abdominal Exam: Soft, Tenderness (around midline incision, dressing C/D/I ) . absent: Distended, Rebound - Neurological Exam Neurological Exam: Alert, Awake, Oriented x3 Assessment and Plan - Assessment and Plan (Free Text) Assessment: 82F s/p lap converted to open cholecystectomy & ventral hernia repair with mesh Plan: - advance to soft diet - encourage ambulation - TCU eval - d/w Dr. Marcio Santacruz, PGY-3 Surgery
[2017-12-16 22:48] LABS: BLOOD UREA NITROGEN 14 mg/dL (7-21); CALCIUM 8.3 mg/dL (8.4-10.5); GFR AFRICAN-AMERICAN > 60; GFR NON-AFRICAN AMERICAN > 60; MAGNESIUM 1.8 mg/dL (1.7-2.2)
--- NOTE | 2017-12-17 00:33 | PN ---
DATE: 12/16/2017 SUBJECTIVE: The patient is in bed, in no acute distress, nontoxic No fevers and chills. PHYSICAL EXAMINATION: VITAL SIGNS: Temperature is 98, blood pressure is 160/60, and respiratory rate is 16. HEENT: Unremarkable. NECK: Supple. LUNGS: Have decreased breath sounds. HEART: Normal S1 and S2. ABDOMEN: Soft and nontender. LABORATORY EXAMINATION: Reveals the patient to have white count of 14,800, hemoglobin of 10 with platelets of 290. BUN of 15, creatinine of 0.7. Urinalysis is noted. Digoxin is noted. Influenza is negative. There is VRE in the gallbladder culture. Blood cultures grew out E. coli. ASSESSMENT AND PLAN: This is an 82-year-old female, the patient was admitted in the ICU with septic shock with E. coli bacteremia, with acute cholecystitis and endoscopic retrograde cholangiopancreatography and had an open cholecystectomy, laparoscopic cholecystectomy which was changed to open cholecystectomy, doing well; however, the patient yesterday morning had an increase in WBC, we will repeat the WBCs and culture him. VRE growing from the gallbladder culture, we will start the patient empirically on Zyvox also and continue the ceftriaxone, pending repeat davidson-cultures and procalcitonin and chest x-ray and repeat CBC. Twan Forrest MD
[2017-12-17] MEDS: Vitamins A & D Oint UD Foilpak TOP SCH ×3 (02:21→17:31)
[2017-12-17 07:29] LABS: HEMOGLOBIN 9.2 g/dL (12.0-16.0); MEAN CELL VOLUME 79.4 fl (80.0-105.0); MEAN CORPUSCULAR HEMOGLOBIN 24.3 pg (25.0-35.0); MEAN CORPUSCULAR HGB CONC 30.6 g/dl (31.0-37.0); MEAN PLATELET VOLUME 11.2 fl (7.0-11.0); RBC 3.79 10^6/uL (3.5-6.1); RED CELL DISTRIBUTION WIDTH 19.5 % (11.5-14.5); WHITE BLOOD COUNT 17.2 10^3/ul (4.5-11.0)
[2017-12-17 07:43] LABS: INR 1.44 (0.93-1.08); PARTIAL THROMBOPLASTIN TIME 65.3 Seconds (25.1-36.5); PROTHROMBIN TIME 16.7 SECONDS (9.4-12.5)
--- NOTE | 2017-12-17 07:50 | CP.PCM.PN ---
Subjective - Date & Time of Evaluation Date of Evaluation: 12/17/17 Time of Evaluation: 07:00 - Subjective Subjective: Stable on 3R now. No CP or SOB. She feels OK. taking PO. V/S noted. AF, mod. VR. PE: Lungs: clear Cor: irreg, sys murmur Abd.: soft Ext. no edema Neuro: alert I/O= 1060/175 recorded recorded Labs 12/16 noted. Labs today pending. BC x2 + E. coli. Wound C+S: + E. faecium Echo: Nl LV fx., Mild/Mod. MR, Severe TR, mod/sev PH CXR 12/16 done. Not read yet. Objective - Vital Signs/Intake and Output Vital Signs (last 24 hours): Temp Pulse Resp BP Pulse Ox 98.2 F 92 H 18 139/91 H 96 12/17/17 05:48 12/17/17 05:48 12/17/17 05:48 12/17/17 05:48 12/17/17 05:48 Intake and Output: 12/17/17 12/17/17 06:59 18:59 Intake Total 814 Output Total 175 Balance 639 - Medications Medications: Current Medications Digoxin (Lanoxin) 0.125 mg PO 1400 [facility] Last Admin: 12/16/17 14:27 Dose: 0.125 mg Famotidine (Pepcid) 20 mg PO DAILY [facility] Ceftriaxone Sodium (Rocephin 2 Gm Ivpb) 2 gm in 100 mls @ 100 mls/hr IVPB DAILY [facility] PRN Reason: Protocol Stop: 12/21/17 10:01 Last Admin: 12/16/17 14:27 Dose: 100 mls/hr Heparin Sodium/Sodium Chloride (Heparin 33811 Units/250ml 1/2 Normal Saline) 25 ,000 units in 250 mls @ 12.41 mls/hr IV .Q20H9M PRN; Protocol; 18 UNITS/KG/HR PRN Reason: ADJUST RATE PER PROTOCOL Last Admin: 12/16/17 14:25 Dose: 14.96 units/kg/hr, 10.314 mls/hr Insulin Human Regular (Humulin R Low) 0 units SC ACHS [facility] PRN Reason: Protocol Last Admin: 12/16/17 21:33 Dose: Not Given Linezolid (Zyvox) 600 mg PO BID [facility] PRN Reason: Protocol Stop: 12/25/17 11:01 Last Admin: 12/16/17 18:04 Dose: 600 mg Metoprolol Tartrate (Lopressor) 25 mg PO BID [facility] Last Admin: 12/16/17 17:53 Dose: 25 mg Nystatin (Nystop Topical Powder) 0 gm TOP BID [facility] Last Admin: 12/16/17 17:56 Dose: 1 applic Ondansetron HCl (Zofran Inj) 4 mg IVP Q4H PRN PRN Reason: Nausea/Vomiting Oxycodone/Acetaminophen (Percocet 5/325 Mg Tab) 1 tab PO Q4H PRN PRN Reason: Pain, Mild (1-3) Stop: 12/17/17 13:25 Last Admin: 12/16/17 18:04 Dose: 1 tab Verapamil HCl (Calan Sr Tab) 120 mg PO DAILY [facility] Last Admin: 12/16/17 10:13 Dose: Not Given Vitamin A (Vitamin A & D Oint Ud Foilpak) 1 ea TOP Q8H [facility] Last Admin: 12/17/17 02:21 Dose: 1 ea - Labs Labs: 12/17/17 07:00 12/16/17 22:27 PT 16.7 SECONDS (9.4-12.5) H 12/17/17 07:00 INR 1.44 (0.93-1.08) H 12/17/17 07:00 APTT 65.3 Seconds (25.1-36.5) H 12/17/17 07:00 Assessment and Plan - Assessment and Plan (Free Text) Assessment: Weak/Lethargy/Fever initially Acute cholecystitis with septic shock, E. coli sepsis /s/p ERCP with biliary stent 12/09/17, S/P open Alexandra with ventral hernia repair 12/15/17. Gall Stones AF with RVR HBP Diabetes HLD CVA Anemia CVD Paramjit. THR Plan: Await AM labs, INR, CXR report. As per GI, ID and surgery. IV Heparin for AF, and coumadin 1 mg./day. Daily INR's Digoxin 0.125 PO daily PO Verapamil and metoprolol for rate control. AB as per ID. OOB as omkar./ PT TCU Eval. Will follow.
[2017-12-17 07:57] LABS: ALB/GLOB RATIO 0.9 (1.1-1.8); ALBUMIN 2.7 g/dL (3.0-4.8); ALT/SGPT 56 U/L (7-56); AST/SGOT 34 U/L (14-36); BLOOD UREA NITROGEN 13 mg/dL (7-21); CALCIUM 8.3 mg/dL (8.4-10.5); GFR AFRICAN-AMERICAN > 60; GFR NON-AFRICAN AMERICAN > 60
--- NOTE | 2017-12-17 08:01 | PN ---
DATE: 12/17/2017 SUBJECTIVE: The patient has no complaints of any pain. No shortness of breath and no headaches. PHYSICAL EXAMINATION: VITAL SIGNS: Temperature is 98.2, pulse of 92, blood pressure is 131/91, and respiration are 18. GENERAL: The patient is lying in bed, flat, comfortable. HEENT: No oral lesion. Anicteric sclerae. Moist mucosa. NECK: No JVD, adenopathy, or thyromegaly. CARDIOVASCULAR: S1 and S2, regular. No murmurs, rubs, or gallops. LUNGS: Clear to auscultation bilaterally. No wheeze, rales, or rhonchi. ABDOMEN: Bowel sounds are positive, soft, nontender and nondistended. EXTREMITIES: No cyanosis, clubbing or edema. LABORATORY DATA: White count of 14.8, hemoglobin of 10.2, and creatinine of 0.6. ASSESSMENT: 1. Ventral hernia repair, postoperative day number 3. 2. Status post open cholecystectomy, postoperative day number 3. 3. Leukocytosis. 4. Septic shock, resolved. 5. Status post endoscopic retrograde cholangiopancreatography with stent placement. 6. Diabetes type 2. 7. Atrial fibrillation. 8. Dyslipidemia. 9. Common bile duct stone. 10. Hypomagnesemia, improved. 11. Hypophosphatemia, improved. PLAN: The patient is currently comfortable. She is getting physical therapy. She is waiting for rehabilitation. The patient had a chest x-ray done. Results are pending. Repeat cultures has been ordered. I did speak to Dr. Forrest regarding the case. She has a gallbladder pathology report that was reviewed by me showed acute on chronic cholecystitis with mucosal hyperplasia and reactive changes on this cholelithiasis. The patient is receiving Coumadin. She is on Dilaudid for pain. I will discontinue her Dilaudid and if she tolerates pain, will give Percocet as needed. The patient is on Rocephin for antibiotics and she is on Zyvox for antibiotics as well. Edmond Nixon MD
[2017-12-17] MEDS: Insulin Reg-LOW-Coverage SC SCH ×3 (08:48→17:29)
--- NOTE | 2017-12-17 09:33 | CP.PCM.PN ---
Subjective - Date & Time of Evaluation Date of Evaluation: 12/17/17 Time of Evaluation: 07:00 - Subjective Subjective: Surgery Progress note. Dr. Buckley Pt seen and examined at home. No acute distress. No N/V/D. No F/C. No Abd pain. No new complaints. Objective - Vital Signs/Intake and Output Vital Signs (last 24 hours): Temp Pulse Resp BP Pulse Ox 98.2 F 92 H 18 139/91 H 96 12/17/17 05:48 12/17/17 05:48 12/17/17 05:48 12/17/17 05:48 12/17/17 05:48 Intake and Output: 12/17/17 12/17/17 06:59 18:59 Intake Total 814 Output Total 175 Balance 639 - Medications Medications: Current Medications Digoxin (Lanoxin) 0.125 mg PO 1400 [facility] Last Admin: 12/16/17 14:27 Dose: 0.125 mg Famotidine (Pepcid) 20 mg PO DAILY [facility] Ceftriaxone Sodium (Rocephin 2 Gm Ivpb) 2 gm in 100 mls @ 100 mls/hr IVPB DAILY [facility] PRN Reason: Protocol Stop: 12/21/17 10:01 Last Admin: 12/16/17 14:27 Dose: 100 mls/hr Heparin Sodium/Sodium Chloride (Heparin 10862 Units/250ml 1/2 Normal Saline) 25 ,000 units in 250 mls @ 12.41 mls/hr IV .Q20H9M PRN; Protocol; 18 UNITS/KG/HR PRN Reason: ADJUST RATE PER PROTOCOL Last Admin: 12/16/17 14:25 Dose: 14.96 units/kg/hr, 10.314 mls/hr Insulin Human Regular (Humulin R Low) 0 units SC ACHS [facility] PRN Reason: Protocol Last Admin: 12/17/17 08:48 Dose: Not Given Linezolid (Zyvox) 600 mg PO BID [facility] PRN Reason: Protocol Stop: 12/25/17 11:01 Last Admin: 12/16/17 18:04 Dose: 600 mg Metoprolol Tartrate (Lopressor) 25 mg PO BID [facility] Last Admin: 12/16/17 17:53 Dose: 25 mg Nystatin (Nystop Topical Powder) 0 gm TOP BID [facility] Last Admin: 12/16/17 17:56 Dose: 1 applic Ondansetron HCl (Zofran Inj) 4 mg IVP Q4H PRN PRN Reason: Nausea/Vomiting Oxycodone/Acetaminophen (Percocet 5/325 Mg Tab) 1 tab PO Q4H PRN PRN Reason: Pain, Mild (1-3) Stop: 12/17/17 13:25 Last Admin: 12/16/17 18:04 Dose: 1 tab Verapamil HCl (Calan Sr Tab) 120 mg PO DAILY [facility] Last Admin: 12/16/17 10:13 Dose: Not Given Vitamin A (Vitamin A & D Oint Ud Foilpak) 1 ea TOP Q8H [facility] Last Admin: 12/17/17 02:21 Dose: 1 ea Warfarin Sodium (Coumadin) 1 mg PO 1800 [facility] PRN Reason: Protocol - Labs Labs: 12/17/17 07:00 12/17/17 07:00 PT 16.7 SECONDS (9.4-12.5) H 12/17/17 07:00 INR 1.44 (0.93-1.08) H 12/17/17 07:00 APTT 65.3 Seconds (25.1-36.5) H 12/17/17 07:00 - Constitutional Appears: Non-toxic, No Acute Distress - Head Exam Head Exam: ATRAUMATIC, NORMAL INSPECTION, NORMOCEPHALIC - Eye Exam Eye Exam: EOMI - ENT Exam ENT Exam: Mucous Membranes Moist - Respiratory Exam Respiratory Exam: NORMAL BREATHING PATTERN. absent: Accessory Muscle Use, Respiratory Distress - Cardiovascular Exam Cardiovascular Exam: absent: JVD - GI/Abdominal Exam GI & Abdominal Exam: Soft. absent: Distended, Firm, Guarding, Rigid, Tenderness Additional comments: Midline incision intact with racheal. Skin edges well approximated. No Rebound, No guarding - Extremities Exam Extremities Exam: Normal Inspection. absent: Calf Tenderness - Neurological Exam Neurological Exam: Alert, Awake - Skin Skin Exam: Dry, Intact, Normal Color, Warm Assessment and Plan - Assessment and Plan (Free Text) Assessment: 82yo F s/p lap converted to open cholecystectomy & ventral hernia repair with mesh on 12/14/17. POD3 Plan: - Advance diet as tolerated - encourage ambulation, OOBTC, IS use - monitor H/H and INR as we continue anticoagulation - TCU eval Further recs as per Dr. Marcio Higuera PGY1 surgery pager: [phone]
--- NOTE | 2017-12-17 10:10 | RAD ---
HISTORY: COMPARISON: 12/08/2017 TECHNIQUE: Chest PA and lateral FINDINGS: LINES AND TUBES: None. LUNG AND PLEURA: There is bilateral lower lobe airspace disease. There are bilateral pleural effusions. No pneumothorax. HEART AND MEDIASTINUM: The cardiomediastinal silhouette is stable. Atherosclerotic aortic arch calcifications are present. The hilar and mediastinal contours are within normal limits. SKELETAL STRUCTURES: The bony structures are within normal limits for the patient's age. VISUALIZED UPPER ABDOMEN: Normal. OTHER FINDINGS: None. IMPRESSION: Moderate bilateral pleural effusions and bilateral lower lobe consolidations. Follow-up is advised.
[2017-12-17] MEDS: Verapamil 120 mg ER Tab PO SCH (10:30)
[2017-12-17] MEDS: cefTRIAXone 2 GM IN NS 2 GM/100 ML BAG IVPB SCH (10:31)
[2017-12-17] MEDS: Nystatin 100,000 Units/gm Topical Pow(15 gm) TOP SCH ×2 (10:34→17:31)
[2017-12-17 14:07] VITALS: RESP 20; TEMP 97; O2SAT 97
[2017-12-17] MEDS: Digoxin 125 mcg (0.125 mg) Tab PO SCH (15:58)
[2017-12-17 16:00] VITALS: PULSE 85
[2017-12-17] MEDS: Heparin25000 units/250ml 1/2NS 25,000 UNITS/250 ML BAG IV PRN (17:23)
--- NOTE | 2017-12-17 17:30 | CP.PCM.PN ---
Subjective - Date & Time of Evaluation Date of Evaluation: 12/17/17 Time of Evaluation: 11:20 - Subjective Subjective: Comfortable, no fevers, no vomiting. Objective - Vital Signs/Intake and Output Vital Signs (last 24 hours): Temp Pulse Resp BP Pulse Ox 98.2 F 118 H 18 139/91 H 96 12/17/17 05:48 12/17/17 10:00 12/17/17 05:48 12/17/17 05:48 12/17/17 05:48 Intake and Output: 12/17/17 12/17/17 06:59 18:59 Intake Total 814 Output Total 175 Balance 639 - Medications Medications: Current Medications Digoxin (Lanoxin) 0.125 mg PO 1400 [facility] Last Admin: 12/16/17 14:27 Dose: 0.125 mg Famotidine (Pepcid) 20 mg PO DAILY [facility] Ceftriaxone Sodium (Rocephin 2 Gm Ivpb) 2 gm in 100 mls @ 100 mls/hr IVPB DAILY [facility] PRN Reason: Protocol Stop: 12/21/17 10:01 Last Admin: 12/16/17 14:27 Dose: 100 mls/hr Heparin Sodium/Sodium Chloride (Heparin 79360 Units/250ml 1/2 Normal Saline) 25 ,000 units in 250 mls @ 12.41 mls/hr IV .Q20H9M PRN; Protocol; 18 UNITS/KG/HR PRN Reason: ADJUST RATE PER PROTOCOL Last Admin: 12/16/17 14:25 Dose: 14.96 units/kg/hr, 10.314 mls/hr Insulin Human Regular (Humulin R Low) 0 units SC ACHS [facility] PRN Reason: Protocol Last Admin: 12/17/17 08:48 Dose: Not Given Linezolid (Zyvox) 600 mg PO BID [facility] PRN Reason: Protocol Stop: 12/25/17 11:01 Last Admin: 12/16/17 18:04 Dose: 600 mg Metoprolol Tartrate (Lopressor) 25 mg PO BID [facility] Last Admin: 12/16/17 17:53 Dose: 25 mg Nystatin (Nystop Topical Powder) 0 gm TOP BID [facility] Last Admin: 12/16/17 17:56 Dose: 1 applic Ondansetron HCl (Zofran Inj) 4 mg IVP Q4H PRN PRN Reason: Nausea/Vomiting Oxycodone/Acetaminophen (Percocet 5/325 Mg Tab) 1 tab PO Q4H PRN PRN Reason: Pain, Mild (1-3) Stop: 12/17/17 13:25 Last Admin: 12/16/17 18:04 Dose: 1 tab Verapamil HCl (Calan Sr Tab) 120 mg PO DAILY [facility] Last Admin: 12/16/17 10:13 Dose: Not Given Vitamin A (Vitamin A & D Oint Ud Foilpak) 1 ea TOP Q8H [facility] Last Admin: 12/17/17 02:21 Dose: 1 ea Warfarin Sodium (Coumadin) 1 mg PO 1800 [facility] PRN Reason: Protocol - Labs Labs: 12/17/17 07:00 12/17/17 07:00 PT 16.7 SECONDS (9.4-12.5) H 12/17/17 07:00 INR 1.44 (0.93-1.08) H 12/17/17 07:00 APTT 65.3 Seconds (25.1-36.5) H 12/17/17 07:00 - Constitutional Appears: Non-toxic - Head Exam Head Exam: NORMAL INSPECTION - Respiratory Exam Respiratory Exam: Decreased Breath Sounds - Cardiovascular Exam Cardiovascular Exam: +S1, +S2 - GI/Abdominal Exam GI & Abdominal Exam: Soft. absent: Tenderness Assessment and Plan - Assessment and Plan (Free Text) Plan: Assessment Severe sepsis/ S/P septic shock from acute cholecystitis with E. 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
[2017-12-17 17:34] VITALS: BP 117/62; PULSE 64
== END 2017-12-17 18:16 | DRG 853 ==
LOC: ED 21:10 → ERH 12-09 01:02 → ICU 12-09 02:28 → 3RSO 12-15 23:55
PROVIDERS: ADMIT Internal Medicine Nephrology; ATTEND Internal Medicine Nephrology
PROC: 0F798DZ Dilation of Common Bile Duct with Intraluminal Device, Via Natural or Artificial Opening Endoscopic (ICD-10-PCS; 2017-12-09)
PROC: 30233K1 Transfusion of Nonautologous Frozen Plasma into Peripheral Vein, Percutaneous Approach (ICD-10-PCS; 2017-12-09)
PROC: 0FT40ZZ Resection of Gallbladder, Open Approach (ICD-10-PCS; principal; 2017-12-14 10:30)
PROC: 0FJ44ZZ Inspection of Gallbladder, Percutaneous Endoscopic Approach (ICD-10-PCS; 2017-12-14 10:30)
PROC: 0WUF0JZ Supplement Abdominal Wall with Synthetic Substitute, Open Approach (ICD-10-PCS; 2017-12-14 10:30)
DX: A41.51 Sepsis due to Escherichia coli [E. coli] (principal); R65.21 Severe sepsis with septic shock; K80.66 Calculus of gallbladder and bile duct with acute and chronic cholecystitis without obstruction; N17.9 Acute kidney failure, unspecified; E87.2 Acidosis; E83.39 Other disorders of phosphorus metabolism; E83.42 Hypomagnesemia; B02.9 Zoster without complications; I50.20 Unspecified systolic (congestive) heart failure; I08.1 Rheumatic disorders of both mitral and tricuspid valves; D64.9 Anemia, unspecified; E11.9 Type 2 diabetes mellitus without complications; I11.0 Hypertensive heart disease with heart failure; I48.2 Chronic atrial fibrillation; E87.6 Hypokalemia; K43.9 Ventral hernia without obstruction or gangrene; I25.10 Atherosclerotic heart disease of native coronary artery without angina pectoris; E78.00 Pure hypercholesterolemia, unspecified; R09.02 Hypoxemia; K64.8 Other hemorrhoids; K57.30 Diverticulosis of large intestine without perforation or abscess without bleeding; Z53.31 Laparoscopic surgical procedure converted to open procedure; Z86.73 Personal history of transient ischemic attack (TIA), and cerebral infarction without residual deficits; Z79.01 Long term (current) use of anticoagulants; Z87.01 Personal history of pneumonia (recurrent); Z96.643 Presence of artificial hip joint, bilateral

== ENCOUNTER 2018-04-19 06:55 | Day surgery (SDC) | payer MEDICARE ==
[2017-12-24 13:21] VITALS: PULSE 76
[2018-04-11 08:53] VITALS: BMI 25.4
[2018-04-19] MEDS ORDERED: Glucagon Recombinant 1 mg Inj ONE (07:55)
[2018-04-19] MEDS ORDERED: Iohexol 240 (50 ml) ONE (07:55)
[2018-04-19] MEDS ORDERED: Indomethacin 50 MG Suppository PR ONE ×2 (07:56→10:35)
[2018-04-19 08:30] LABS: INR 1.45 (0.93-1.08); PARTIAL THROMBOPLASTIN TIME 29.3 Seconds (25.1-36.5); PROTHROMBIN TIME 16.8 SECONDS (9.4-12.5)
[2018-04-19] MEDS ORDERED: Propofol 10 mg/ml Inj (20 ML) ONE (10:18)
[2018-04-19] MEDS ORDERED: Rocuronium 10 mg/ml (5 ml) ONE (10:18)
[2018-04-19] MEDS ORDERED: Midazolam 2 MG/2 ML VIAL ONE (10:19)
[2018-04-19] MEDS ORDERED: cefTRIAXone 1 gm 1 GM/100 ML BAG IVPB STA (10:27)
[2018-04-19] MEDS ORDERED: cefTRIAXone (Rocephin) 1 gm Inj ONE (10:32)
[2018-04-19] MEDS ORDERED: Sevoflurane - Inhalation Anesthetic Liq (250 ml) ONE (10:39)
--- NOTE | 2018-04-19 11:29 | RAD ---
PROCEDURE: ERCP HISTORY: R/O OBSTRUCTION COMPARISON: TECHNIQUE: Fluoroscopy was provided in the endoscopy suite. 95.1 seconds of fluoro time. Cumulative dose 20.42 mGy. Four images were submitted FINDINGS: The study shows passage of a balloon catheter through the common bile duct. The common bile duct is dilated. IMPRESSION: As above
[2018-04-19] MEDS ORDERED: Sodium Chloride 0.9% 1,000 ML IV SCH (11:30)
[2018-04-19 12:18] VITALS: BP 126/77; PULSE 94; RESP 16; TEMP 97.9; O2SAT 96
== END 2018-04-19 13:21 | disposition home or self-care (01) ==
LOC: ENDO 06:55
PROVIDERS: ATTEND Internal Medicine
DX: K80.50 Calculus of bile duct without cholangitis or cholecystitis without obstruction (principal); Z87.19 Personal history of other diseases of the digestive system
CPT/HCPCS: 36415; 43264; 43275; 74330; 82948; 85610; 85730; J0696; J2001; J2250; J2704; J3010; J7030; J7040; Q9966

== ENCOUNTER 2019-04-11 09:47 | Outpatient (CLI) | payer MEDICARE | END 2019-04-11 09:48 | disposition home or self-care (01) | LOC: RAD 09:47 ==